=== PATIENT | female | born 1950 | race African-American/Black ===

== ENCOUNTER 2017-04-12 00:24 | Inpatient (IN) | payer MEDICARE, MEDICAID ==
[~2017-04-12] VITALS: Ht 172.7 cm; Wt 83.7 kg
[2017-04-12] VITALS (9 sets, daily range): BP systolic 116–159; BP diastolic 41–88
[~2017-04-12 00:24] MED LIST: ACYC800T5 PO; ALBU2.5V13; ALBU5SOL6; ALEN70TA3; AMLO10TA80; ATROV INH; BECL8.7A5; COMBIV INH; ESTR0.9T2; FURO-151 PO; GABA-290 PO; GABA-580; GEMF600T3; HYDR-3927; INSLAN; LORA-671; METH40TA; METO-385; MOME13HF; MONT10TA21 PO; OMAL150V; P50 PO; PANT40VI6 PO; POTA8TAB4; SUCR1TAB30 PO; TC1C15; TIOT18CA3; [UNRECOGNIZED DRUG - CODE]; [UNRECOGNIZED DRUG - CODE]; [UNRECOGNIZED DRUG - OTHER]; [UNRECOGNIZED DRUG - OTHER] PO
[2017-04-12] MEDS ORDERED: IPRATROPIUM BROMIDE (0.02%) 0.5MG/2.5ML NEB HHN STA (01:39)
[2017-04-12] MEDS ORDERED: ALBUTEROL (0.083%) 2.5MG/3ML NEB HHN STA (01:39)
[2017-04-12] MEDS ORDERED: MAGNESIUM 2 G PREMIX 50 ML IV ONE (01:45)
[2017-04-12 02:01] LABS: HEMATOCRIT. 37.8 % (36.0-48.0); HEMOGLOBIN. 12.3 g/dL (12.0-16.0); MEAN CORPUSCULAR HEMOGLOBIN 30.2 pg (28.0-32.0); MEAN CORPUSCULAR VOLUME 92.6 fL (81.0-99.0); MEAN PLATELET VOLUME 8.3 fl (7.4-10.4); PLATELET 381 x1000/uL (130-400); RED BLOOD CELL COUNT 4.08 mill/uL (4.2-5.4); RED CELL DISTRIBUTION WIDTH 15.3 % (11.6-14.6)
[2017-04-12 02:16] LABS: CHLORIDE 93 mEq/L (98-107); TROPONIN I 0.34 ng/mL (0.00-0.04)
[2017-04-12 04:35] LABS: PLATELET ESTIMATE NORMAL
[2017-04-12] MEDS ORDERED: INSULIN REGULAR (HUMULIN R) 300UNITS/3ML SUBCUT ONE (05:00)
[2017-04-12] MEDS ORDERED: DEXTROSE 50% WATER 50ML SYRINGE IV PRN (08:00)
[2017-04-12] MEDS ORDERED: HYDROCODONE/ACETAMINOPHEN 5/325MG TABLET PO PRN (08:00)
[2017-04-12] MEDS: BLOOD SUGAR DIAGNOSTIC STRIP TEST SCH ×4 (08:10→21:00)
[2017-04-12] MEDS ORDERED: INSULIN LISPRO 100 UNITS/ML SUBCUT SCH (08:30)
[2017-04-12] MEDS: INSULIN LISPRO 100 UNITS/ML SUBCUT SCH ×4 (08:45→22:13)
[2017-04-12] MEDS: NITROGLYCERIN 0.4MG TABLET SL SL PRN ×2 (08:46→23:50)
[2017-04-12] MEDS: INSULIN GLARGINE UD 100 UNITS/ML SYR SUBCUT SCH ×2 (10:29→22:00)
[2017-04-12] MEDS ORDERED: ONDANSETRON HCL 4MG/2ML VIAL IV PRN (11:45)
[2017-04-12] MEDS: IPRATROPIUM/ALBUTEROL 0.5-3(2.5)MG/3ML NEB INH PRN ×2 (12:18→17:25)
[2017-04-12] MEDS: BUDESONIDE 0.5MG/2ML NEB HHN SCH ×2 (12:19→20:02)
[2017-04-12] MEDS: ASPIRIN 81MG EC TABLET PO SCH (12:46)
[2017-04-12] MEDS: HYDROCODONE/ACETAMINOPHEN 5/325MG TABLET PO PRN ×2 (12:47→21:52)
[2017-04-12] MEDS: DILTIAZEM HCL 60MG TABLET PO SCH ×2 (14:49→21:50)
[2017-04-12 15:35] LABS: CREATINE KINASE MB FRACTION 9.6 ng/mL (0.5-3.6); TROPONIN I 0.37 ng/mL (0.00-0.04)
[2017-04-12 17:19] LABS: *AMPHETAMINES SCREEN URINE NEGATIVE (NEGATIVE); *BARBITURATES SCREEN URINE NEGATIVE (NEGATIVE); *BENZODIAZEPINES SCREEN URINE PRESUMTIVE POSITIVE (NEGATIVE); *COCAINE SCREEN URINE NEGATIVE (NEGATIVE); CANNABINOID URINE SCREEN NEGATIVE (NEGATIVE); METHADONE URINE SCREEN NEGATIVE (NEGATIVE); OPIATES URINE SCREEN PRESUMTIVE POSITIVE (NEGATIVE); PHENCYCLIDINE URINE SCREEN NEGATIVE (NEGATIVE)
[2017-04-12] MEDS: METHYLPREDNISOLONE SOD SUCC 40 MG/ML VIAL IV SCH (18:53)
[2017-04-12] MEDS: IPRATROPIUM/ALBUTEROL 0.5-3(2.5)MG/3ML NEB HHN SCH (20:02)
[2017-04-12] MEDS ORDERED: [UNRECOGNIZED DRUG - OTHER] INH SCH (20:30)
[2017-04-12] MEDS ORDERED: ALBUTEROL SULFATE INH SCH (20:30)
[2017-04-12] MEDS ORDERED: TIZANIDINE HCL 4MG TABLET PO PRN (20:30)
[2017-04-12] MEDS ORDERED: HYDROXYZINE 25MG TABLET PO PRN (20:30)
[2017-04-12] MEDS ORDERED: IPRATROPIUM INH SCH (20:30)
[2017-04-12] MEDS ORDERED: IPRATROPIUM BROMIDE 17 MCG INH SCH (20:30)
[2017-04-12] MEDS ORDERED: MECLIZINE 25MG TABLET PO PRN (20:30)
[2017-04-12] MEDS ORDERED: MEDICATION NOT ON FORMULARY EA (Gabapentin 600 MG) PO SCH (20:30)
[2017-04-12] MEDS ORDERED: PREGABALIN 75MG CAPSULE PO SCH (21:00)
[2017-04-12] MEDS ORDERED: OMEP40CA34 PO (21:03)
[2017-04-12] MEDS ORDERED: ESTR0.9T2 PO (21:03)
[2017-04-12] MEDS ORDERED: HYDR-2412 PO (21:03)
[2017-04-12] MEDS ORDERED: LOSA50TA20 PO (21:03)
[2017-04-12] MEDS ORDERED: TIZA4TAB4 PO (21:03)
[2017-04-12] MEDS ORDERED: PREG75CA PO (21:03)
[2017-04-12] MEDS ORDERED: MECL-109 PO (21:03)
[2017-04-12] MEDS ORDERED: METH-375 PO (21:03)
[2017-04-12] MEDS ORDERED: SITA100T11 PO (21:03)
[2017-04-12] MEDS ORDERED: ASPI-1159 PO (21:03)
[2017-04-12] MEDS ORDERED: GEMF600T3 PO (21:03)
[2017-04-12] MEDS ORDERED: OXYC-523 PO (21:08)
[2017-04-12] MEDS: CLONIDINE 0.1MG TABLET PO SCH (21:52)
[2017-04-12] MEDS: METHOCARBAMOL 750MG TABLET PO SCH (23:17)
[2017-04-12] MEDS: OXYCODONE HCL/ACETAMINOPHEN 5/325MG TABLET PO PRN (23:40)
[2017-04-13] VITALS (10 sets, daily range): BP systolic 114–175; BP diastolic 71–110
[2017-04-13 00:04] LABS: CREATINE KINASE MB FRACTION 7.3 ng/mL (0.5-3.6)
[2017-04-13 00:09] LABS: TROPONIN I 0.43 ng/mL (0.00-0.04)
[2017-04-13] MEDS: IPRATROPIUM/ALBUTEROL 0.5-3(2.5)MG/3ML NEB HHN SCH ×6 (00:18→20:05)
[2017-04-13] MEDS: MAGNESIUM/ALUMINUM HYDROXIDE/SIMETHICONE 30ML UDC PO PRN ×2 (00:23→06:54)
[2017-04-13] MEDS: ZOLPIDEM TARTRATE 5MG TABLET PO PRN ×2 (00:23→22:52)
[2017-04-13] MEDS: ACETAMINOPHEN 325MG TABLET PO PRN (00:31)
[2017-04-13] MEDS ORDERED: ALBU18HF2 IH (00:50)
[2017-04-13] MEDS ORDERED: ACLI400A2 IH (00:50)
[2017-04-13] MEDS ORDERED: BUDE6HFA INH (00:50)
[2017-04-13] MEDS: METHYLPREDNISOLONE SOD SUCC 40 MG/ML VIAL IV SCH ×4 (03:00→18:19)
[2017-04-13] MEDS: DILTIAZEM HCL 60MG TABLET PO SCH ×5 (03:00→20:55)
[2017-04-13] MEDS: METHOCARBAMOL 750MG TABLET PO SCH ×6 (03:30→20:56)
[2017-04-13] MEDS: INSULIN GLARGINE UD 100 UNITS/ML SYR SUBCUT SCH ×3 (06:18→22:52)
[2017-04-13] MEDS: GEMFIBROZIL 600MG TABLET PO SCH ×2 (06:54→16:39)
[2017-04-13] MEDS: OMEPRAZOLE 20MG CAPSULE EXTENDED RELEASE PO SCH (06:54)
[2017-04-13 06:56] LABS: HEMATOCRIT. 35.5 % (36.0-48.0); HEMOGLOBIN. 11.8 g/dL (12.0-16.0); MEAN CORPUSCULAR HEMOGLOBIN 30.6 pg (28.0-32.0); MEAN CORPUSCULAR VOLUME 92.4 fL (81.0-99.0); MEAN PLATELET VOLUME 8.6 fl (7.4-10.4); PLATELET 348 x1000/uL (130-400); RED BLOOD CELL COUNT 3.84 mill/uL (4.2-5.4); RED CELL DISTRIBUTION WIDTH 15.1 % (11.6-14.6)
[2017-04-13 07:33] LABS: TROPONIN I 0.35 ng/mL (0.00-0.04)
[2017-04-13] MEDS: BLOOD SUGAR DIAGNOSTIC STRIP TEST SCH ×4 (07:58→21:16)
[2017-04-13] MEDS: SUCRALFATE 1G TABLET PO SCH ×3 (07:59→20:54)
[2017-04-13] MEDS: INSULIN LISPRO 100 UNITS/ML SUBCUT SCH ×4 (08:25→21:16)
[2017-04-13] MEDS: FUROSEMIDE 40MG TABLET PO SCH (08:45)
[2017-04-13] MEDS: LOSARTAN POTASSIUM 50 MG TABLET PO SCH (08:45)
[2017-04-13] MEDS: FOLIC ACID/VITAMIN B COMP W-C TABLET PO SCH (08:46)
[2017-04-13] MEDS: LINAGLIPTIN 5MG TABLET PO SCH (08:46)
[2017-04-13] MEDS: ASPIRIN 81MG EC TABLET PO SCH (08:46)
[2017-04-13] MEDS: CLONIDINE 0.1MG TABLET PO SCH ×2 (08:47→20:56)
[2017-04-13] MEDS ORDERED: ACYCLOVIR 400 MG PO SCH (09:00)
[2017-04-13] MEDS ORDERED: PREDNISONE 10 MG PO SCH (09:00)
[2017-04-13] MEDS ORDERED: GABAPENTIN 300MG CAPSULE PO SCH (09:00)
[2017-04-13] MEDS ORDERED: ACYCLOVIR 400 MG TABLET PO SCH (09:00)
[2017-04-13] MEDS ORDERED: ESTROGENS CONJUGATED PO SCH (09:00)
[2017-04-13] MEDS ORDERED: ASPIRIN 81MG EC TABLET PO SCH (09:00)
[2017-04-13] MEDS ORDERED: MEDICATION NOT ON FORMULARY EA (Sitagliptin Phosphate (Januvia) 1 TAB) PO SCH (09:00)
[2017-04-13] MEDS ORDERED: ROFLUMILAST PO SCH (09:00)
[2017-04-13] MEDS ORDERED: MEDICATION NOT ON FORMULARY EA (Omeprazole 1 CAP) PO SCH (09:00)
[2017-04-13] MEDS: BUDESONIDE 0.5MG/2ML NEB HHN SCH ×2 (09:32→20:10)
[2017-04-13] MEDS: NITROGLYCERIN 0.4MG TABLET SL SL PRN ×2 (09:57→10:05)
[2017-04-13] MEDS ORDERED: LACTULOSE 20G/30ML UDC PO NR (11:15)
[2017-04-13] MEDS: NITROGLYCERIN OINT 1GM/INCH UDPKT TD SCH ×2 (11:57→17:01)
[2017-04-13] MEDS: DOCUSATE SODIUM 250MG CAPSULE PO SCH ×2 (11:58→16:51)
[2017-04-13] MEDS: CLONIDINE 0.1MG TABLET PO PRN (12:33)
[2017-04-13] MEDS: LEVOFLOXACIN 250MG PREMIX 50 ML IV SCH (12:34)
[2017-04-13 20:50] LABS: PLATELET ESTIMATE NORMAL
[2017-04-13] MEDS: PREGABALIN 50 MG CAPSULE PO SCH (20:55)
[2017-04-13] MEDS: GUAIFENESIN 600MG ER TABLET PO SCH (20:55)
[2017-04-13] MEDS: MONTELUKAST SODIUM 10MG TABLET PO SCH (20:56)
[2017-04-13] MEDS: OXYCODONE HCL/ACETAMINOPHEN 5/325MG TABLET PO PRN (21:14)
[2017-04-14] VITALS (11 sets, daily range): BP systolic 117–172; BP diastolic 53–113
[2017-04-14] MEDS: NITROGLYCERIN OINT 1GM/INCH UDPKT TD SCH ×4 (00:15→20:19)
[2017-04-14] MEDS: METHOCARBAMOL 750MG TABLET PO SCH ×6 (00:18→20:14)
[2017-04-14] MEDS: IPRATROPIUM/ALBUTEROL 0.5-3(2.5)MG/3ML NEB HHN SCH ×6 (00:52→21:20)
[2017-04-14] MEDS: DILTIAZEM HCL 60MG TABLET PO SCH ×4 (01:02→15:35)
[2017-04-14] MEDS: METHYLPREDNISOLONE SOD SUCC 40 MG/ML VIAL IV SCH ×3 (03:04→18:04)
[2017-04-14 06:06] LABS: BASOPHILS % 0.1 % (0.0-2.0); HEMATOCRIT. 31.9 % (36.0-48.0); HEMOGLOBIN. 10.3 g/dL (12.0-16.0); MEAN CORPUSCULAR HEMOGLOBIN 29.5 pg (28.0-32.0); MEAN CORPUSCULAR VOLUME 91.2 fL (81.0-99.0); MEAN PLATELET VOLUME 8.6 fl (7.4-10.4); NEUTROPHILS % 83.9 % (40.0-76.0); PLATELET 360 x1000/uL (130-400)
[2017-04-14] MEDS ORDERED: LIDOCAINE HCL 1% 20ML VIAL (Pyxis) INJ INFIL ONE (06:30)
[2017-04-14] MEDS: SUCRALFATE 1G TABLET PO SCH ×3 (07:44→22:04)
[2017-04-14] MEDS: GEMFIBROZIL 600MG TABLET PO SCH ×2 (07:44→17:04)
[2017-04-14] MEDS: BLOOD SUGAR DIAGNOSTIC STRIP TEST SCH ×4 (07:44→21:00)
[2017-04-14] MEDS: OMEPRAZOLE 20MG CAPSULE EXTENDED RELEASE PO SCH (07:44)
[2017-04-14] MEDS: INSULIN LISPRO 100 UNITS/ML SUBCUT SCH ×4 (07:54→21:00)
[2017-04-14] MEDS: BUDESONIDE 0.5MG/2ML NEB HHN SCH (08:15)
[2017-04-14] MEDS ORDERED: SENNOSIDES/DOCUSATE SOD 8.6/50MG TABLET PO PRN (09:30)
[2017-04-14] MEDS: DOCUSATE SODIUM 250MG CAPSULE PO SCH ×2 (09:45→17:05)
[2017-04-14] MEDS: LINAGLIPTIN 5MG TABLET PO SCH (09:46)
[2017-04-14] MEDS: LOSARTAN POTASSIUM 50 MG TABLET PO SCH (09:46)
[2017-04-14] MEDS: FOLIC ACID/VITAMIN B COMP W-C TABLET PO SCH (09:46)
[2017-04-14] MEDS: ASPIRIN 81MG EC TABLET PO SCH (09:46)
[2017-04-14] MEDS: FUROSEMIDE 40MG TABLET PO SCH (09:46)
[2017-04-14] MEDS: GUAIFENESIN 600MG ER TABLET PO SCH ×2 (09:47→22:06)
[2017-04-14] MEDS: CLONIDINE 0.1MG TABLET PO SCH ×2 (09:47→21:00)
[2017-04-14] MEDS: INSULIN GLARGINE UD 100 UNITS/ML SYR SUBCUT SCH ×2 (09:48→22:30)
[2017-04-14] MEDS ORDERED: NITROGLYCERIN OINT 1GM/INCH UDPKT TD SCH (14:00)
[2017-04-14] MEDS: MONTELUKAST SODIUM 10MG TABLET PO SCH (20:14)
[2017-04-14] MEDS ORDERED: LACTULOSE 20G/30ML UDC PO PRN (21:00)
[2017-04-14] MEDS ORDERED: EPOETIN ALFA 4000UNITS/ML VIAL SUBCUT SCH (21:00)
[2017-04-14] MEDS: PREGABALIN 50 MG CAPSULE PO SCH (22:05)
[2017-04-15] VITALS (7 sets, daily range): BP systolic 117–173; BP diastolic 54–96
[2017-04-15] MEDS: ZOLPIDEM TARTRATE 5MG TABLET PO PRN ×3 (01:03→23:54)
[2017-04-15] MEDS: IPRATROPIUM/ALBUTEROL 0.5-3(2.5)MG/3ML NEB HHN SCH ×6 (01:07→20:21)
[2017-04-15] MEDS: METHYLPREDNISOLONE SOD SUCC 40 MG/ML VIAL IV SCH ×3 (03:23→20:38)
[2017-04-15] MEDS: HYDROCODONE/ACETAMINOPHEN 5/325MG TABLET PO PRN (03:23)
[2017-04-15] MEDS: DILTIAZEM HCL 60MG TABLET PO SCH ×4 (03:24→20:38)
[2017-04-15] MEDS: METHOCARBAMOL 750MG TABLET PO SCH ×7 (04:00→23:51)
[2017-04-15] MEDS: NITROGLYCERIN OINT 1GM/INCH UDPKT TD SCH ×3 (04:00→20:37)
[2017-04-15] MEDS: BUDESONIDE 0.5MG/2ML NEB HHN SCH ×3 (05:11→20:21)
[2017-04-15] MEDS: GEMFIBROZIL 600MG TABLET PO SCH ×2 (06:48→17:31)
[2017-04-15] MEDS: OMEPRAZOLE 20MG CAPSULE EXTENDED RELEASE PO SCH (06:48)
[2017-04-15] MEDS: SUCRALFATE 1G TABLET PO SCH ×3 (06:49→20:38)
[2017-04-15] MEDS: CLONIDINE 0.1MG TABLET PO PRN (07:06)
[2017-04-15 07:23] LABS: BASOPHILS % 0.1 % (0.0-2.0); HEMATOCRIT. 32.6 % (36.0-48.0); HEMOGLOBIN. 10.7 g/dL (12.0-16.0); LYMPHOCYTES % 7.3 % (20.0-50.0); MEAN CORPUSCULAR HEMOGLOBIN 29.7 pg (28.0-32.0); MEAN CORPUSCULAR VOLUME 90.5 fL (81.0-99.0); MEAN PLATELET VOLUME 8.4 fl (7.4-10.4); MONOCYTES % 3.4 % (2.0-8.0); NEUTROPHILS % 89.2 % (40.0-76.0); PLATELET 384 x1000/uL (130-400); RED CELL DISTRIBUTION WIDTH 14.8 % (11.6-14.6)
[2017-04-15] MEDS: BLOOD SUGAR DIAGNOSTIC STRIP TEST SCH ×4 (08:06→20:39)
[2017-04-15] MEDS: DOCUSATE SODIUM 250MG CAPSULE PO SCH ×2 (08:48→16:59)
[2017-04-15] MEDS: FUROSEMIDE 40MG TABLET PO SCH (08:48)
[2017-04-15] MEDS: LOSARTAN POTASSIUM 50 MG TABLET PO SCH (08:48)
[2017-04-15] MEDS: CLONIDINE 0.1MG TABLET PO SCH ×2 (08:50→20:38)
[2017-04-15] MEDS: LINAGLIPTIN 5MG TABLET PO SCH (08:50)
[2017-04-15] MEDS: DOCUSATE SODIUM 100MG CAPSULE PO PRN (08:50)
[2017-04-15] MEDS: FOLIC ACID/VITAMIN B COMP W-C TABLET PO SCH (08:52)
[2017-04-15] MEDS: GUAIFENESIN 600MG ER TABLET PO SCH ×2 (08:52→20:38)
[2017-04-15] MEDS: ASPIRIN 81MG EC TABLET PO SCH (08:52)
[2017-04-15] MEDS: INSULIN LISPRO 100 UNITS/ML SUBCUT SCH ×4 (08:55→21:17)
[2017-04-15] MEDS: INSULIN GLARGINE UD 100 UNITS/ML SYR SUBCUT SCH ×2 (11:23→21:18)
[2017-04-15] MEDS ORDERED: SODIUM POLYSTYRENE SULFONATE 15 G/60 ML BOT PO NR (12:30)
[2017-04-15] MEDS ORDERED: LANTUSUD SUBCUT (12:38)
[2017-04-15] MEDS ORDERED: ASPI-1158 PO (12:38)
[2017-04-15] MEDS ORDERED: LINA5TAB PO (12:38)
[2017-04-15] MEDS ORDERED: DILT240C91 PO (12:38)
[2017-04-15] MEDS ORDERED: P20 PO (12:38)
[2017-04-15] MEDS ORDERED: SODIUM POLYSTYRENE SULFONATE 15 G/60 ML BOT PO ONE (13:00)
[2017-04-15] MEDS: ISOSORB DINIT/HYDRALAZINE HCL 20/37.5MG TABLET PO SCH ×2 (14:00→22:11)
[2017-04-15] MEDS: LEVOFLOXACIN 250MG PREMIX 50 ML IV SCH (14:39)
[2017-04-15] MEDS: MONTELUKAST SODIUM 10MG TABLET PO SCH (20:36)
[2017-04-15] MEDS: PREGABALIN 50 MG CAPSULE PO SCH (20:38)
[2017-04-16] VITALS (9 sets, daily range): BP systolic 137–187; BP diastolic 59–167
[2017-04-16] MEDS: IPRATROPIUM/ALBUTEROL 0.5-3(2.5)MG/3ML NEB HHN SCH ×6 (00:44→23:58)
[2017-04-16] MEDS: METHOCARBAMOL 750MG TABLET PO SCH ×6 (03:46→23:01)
[2017-04-16] MEDS: DILTIAZEM HCL 60MG TABLET PO SCH ×4 (03:46→21:20)
[2017-04-16] MEDS: CLONIDINE 0.1MG TABLET PO PRN ×2 (03:46→22:52)
[2017-04-16] MEDS: NITROGLYCERIN OINT 1GM/INCH UDPKT TD SCH ×3 (03:46→21:20)
[2017-04-16] MEDS: ISOSORB DINIT/HYDRALAZINE HCL 20/37.5MG TABLET PO SCH ×3 (05:53→21:19)
[2017-04-16] MEDS: FUROSEMIDE 40MG TABLET PO SCH (06:11)
[2017-04-16 08:43] LABS: HEMATOCRIT. 32.7 % (36.0-48.0); HEMOGLOBIN. 10.5 g/dL (12.0-16.0); MEAN CORPUSCULAR HEMOGLOBIN 28.7 pg (28.0-32.0); MEAN CORPUSCULAR VOLUME 89.3 fL (81.0-99.0); MEAN PLATELET VOLUME 8.3 fl (7.4-10.4); PLATELET 405 x1000/uL (130-400); RED BLOOD CELL COUNT 3.66 mill/uL (4.2-5.4); RED CELL DISTRIBUTION WIDTH 14.9 % (11.6-14.6)
[2017-04-16] MEDS: CLONIDINE 0.1MG TABLET PO SCH ×2 (09:00→21:19)
[2017-04-16] MEDS: OMEPRAZOLE 20MG CAPSULE EXTENDED RELEASE PO SCH (10:15)
[2017-04-16] MEDS: GEMFIBROZIL 600MG TABLET PO SCH ×2 (10:15→18:39)
[2017-04-16] MEDS: METHYLPREDNISOLONE SOD SUCC 40 MG/ML VIAL IV SCH ×2 (10:16→21:20)
[2017-04-16] MEDS: DOCUSATE SODIUM 100MG CAPSULE PO PRN (10:16)
[2017-04-16] MEDS: ASPIRIN 81MG EC TABLET PO SCH (10:30)
[2017-04-16] MEDS: DOCUSATE SODIUM 250MG CAPSULE PO SCH ×2 (10:31→18:41)
[2017-04-16] MEDS: LINAGLIPTIN 5MG TABLET PO SCH (10:32)
[2017-04-16 10:45] LABS: PLATELET ESTIMATE SLIGHTLY INCREASED
[2017-04-16] MEDS: GUAIFENESIN 600MG ER TABLET PO SCH ×2 (10:45→21:13)
[2017-04-16] MEDS: SUCRALFATE 1G TABLET PO SCH ×3 (10:45→21:13)
[2017-04-16] MEDS: HYDROCODONE/ACETAMINOPHEN 5/325MG TABLET PO PRN ×2 (10:47→22:53)
[2017-04-16] MEDS: BUDESONIDE 0.5MG/2ML NEB HHN SCH ×2 (12:20→20:08)
[2017-04-16] MEDS: BLOOD SUGAR DIAGNOSTIC STRIP TEST SCH ×3 (12:30→21:20)
[2017-04-16] MEDS: INSULIN LISPRO 100 UNITS/ML SUBCUT SCH ×3 (13:13→21:34)
[2017-04-16] MEDS: INSULIN GLARGINE UD 100 UNITS/ML SYR SUBCUT SCH ×2 (13:16→21:34)
[2017-04-16] MEDS: FOLIC ACID/VITAMIN B COMP W-C TABLET PO SCH (14:16)
[2017-04-16] MEDS: MONTELUKAST SODIUM 10MG TABLET PO SCH (21:13)
[2017-04-16] MEDS: PREGABALIN 50 MG CAPSULE PO SCH (21:19)
[2017-04-16] MEDS: ACETAMINOPHEN 325MG TABLET PO PRN (22:52)
[2017-04-16] MEDS: ZOLPIDEM TARTRATE 5MG TABLET PO PRN (22:53)
[2017-04-17] VITALS (40 sets, daily range): BP systolic 98–182; BP diastolic 49–98
[2017-04-17] MEDS: DILTIAZEM HCL 60MG TABLET PO SCH ×4 (03:00→21:30)
[2017-04-17] MEDS: NITROGLYCERIN OINT 1GM/INCH UDPKT TD SCH ×3 (03:50→21:31)
[2017-04-17] MEDS: METHOCARBAMOL 750MG TABLET PO SCH ×3 (03:53→12:00)
[2017-04-17] MEDS: IPRATROPIUM/ALBUTEROL 0.5-3(2.5)MG/3ML NEB HHN SCH ×5 (04:05→19:53)
[2017-04-17] MEDS: ISOSORB DINIT/HYDRALAZINE HCL 20/37.5MG TABLET PO SCH ×3 (05:54→21:28)
[2017-04-17] MEDS: SUCRALFATE 1G TABLET PO SCH ×3 (07:30→21:28)
[2017-04-17] MEDS: BLOOD SUGAR DIAGNOSTIC STRIP TEST SCH ×4 (07:30→21:31)
[2017-04-17] MEDS: INSULIN LISPRO 100 UNITS/ML SUBCUT SCH ×4 (08:00→21:30)
[2017-04-17] MEDS: DOCUSATE SODIUM 100MG CAPSULE PO PRN (08:59)
[2017-04-17] MEDS: FUROSEMIDE 40MG TABLET PO SCH (08:59)
[2017-04-17] MEDS: ASPIRIN 81MG EC TABLET PO SCH (08:59)
[2017-04-17] MEDS: GUAIFENESIN 600MG ER TABLET PO SCH ×2 (08:59→21:28)
[2017-04-17] MEDS: GEMFIBROZIL 600MG TABLET PO SCH ×2 (08:59→17:42)
[2017-04-17] MEDS: LINAGLIPTIN 5MG TABLET PO SCH (08:59)
[2017-04-17] MEDS: OMEPRAZOLE 20MG CAPSULE EXTENDED RELEASE PO SCH (08:59)
[2017-04-17] MEDS: FOLIC ACID/VITAMIN B COMP W-C TABLET PO SCH (08:59)
[2017-04-17] MEDS: METHYLPREDNISOLONE SOD SUCC 40 MG/ML VIAL IV SCH ×2 (09:00→21:31)
[2017-04-17] MEDS: CLONIDINE 0.1MG TABLET PO SCH ×2 (09:00→21:28)
[2017-04-17] MEDS: DOCUSATE SODIUM 250MG CAPSULE PO SCH ×2 (09:00→17:42)
[2017-04-17] MEDS: BUDESONIDE 0.5MG/2ML NEB HHN SCH ×2 (09:20→19:53)
[2017-04-17] MEDS: INSULIN GLARGINE UD 100 UNITS/ML SYR SUBCUT SCH ×2 (09:26→21:29)
[2017-04-17 10:31] LABS: BG BASE EXCESS 1.5 mmol/L (-2.0-2.0); BG BILEVEL POS AIRWAY PRESSURE 15/5; BG DEOXYHEMOGLOBIN 1.6 % (0.0-5.0); BG FRACTION INSPIRED OXYGEN 50; BG HCO3 ACT 27.3 mmol/L (22.0-26.0); BG METHEMOGLOBIN 0.4 % (0.0-1.5); BG OXYGEN SATURATION 98.4 % (92.0-98.5); BG PCO2 48.2 mmHg (35.0-45.0); BG PH 7.371 (7.350-7.450); BG PO2 145.9 mmHg (75.0-100.0); BG SAMPLE SITE LEFT BRACHIAL; BG TOTAL HEMOGLOBIN 11.3 g/dL (12.0-18.0); BG VENT MODE MASK - BIPAP
[2017-04-17 10:46] LABS: PHOSPHORUS 3.9 mg/dL (2.5-4.9)
[2017-04-17 10:54] LABS: HEMATOCRIT. 32.3 % (36.0-48.0); HEMOGLOBIN. 10.7 g/dL (12.0-16.0); MEAN CORPUSCULAR HEMOGLOBIN 29.6 pg (28.0-32.0); MEAN CORPUSCULAR VOLUME 89.8 fL (81.0-99.0); MEAN PLATELET VOLUME 8.5 fl (7.4-10.4); PLATELET 352 x1000/uL (130-400); RED CELL DISTRIBUTION WIDTH 15.4 % (11.6-14.6)
[2017-04-17] MEDS ORDERED: PIPERACILLIN/TAZ 3.375G PREMIX 50 ML IV SCH (11:30)
[2017-04-17] MEDS: LEVOFLOXACIN 250MG PREMIX 50 ML IV SCH (12:47)
[2017-04-17] MEDS ORDERED: VANCOMYCIN 1500MG in DEXTROSE 5% WATER 250ML IV SCH (13:00)
[2017-04-17 13:20] LABS: PLATELET ESTIMATE NORMAL
[2017-04-17] MEDS: PIPERACILLIN/TAZ 2.25G PREMIX 50 ML IV SCH ×2 (14:00→21:31)
[2017-04-17] MEDS: NITROGLYCERIN 0.4MG TABLET SL SL PRN ×2 (16:45→17:49)
[2017-04-17] MEDS: PREGABALIN 50 MG CAPSULE PO SCH (21:27)
[2017-04-17] MEDS: MONTELUKAST SODIUM 10MG TABLET PO SCH (21:30)
[2017-04-17] MEDS: OXYCODONE HCL/ACETAMINOPHEN 5/325MG TABLET PO PRN (22:55)
[2017-04-18] VITALS (24 sets, daily range): BP systolic 103–161; BP diastolic 52–102
[2017-04-18] MEDS: IPRATROPIUM/ALBUTEROL 0.5-3(2.5)MG/3ML NEB HHN SCH ×6 (00:10→21:54)
[2017-04-18] MEDS: DILTIAZEM HCL 60MG TABLET PO SCH ×4 (03:57→21:29)
[2017-04-18] MEDS: NITROGLYCERIN OINT 1GM/INCH UDPKT TD SCH ×3 (03:58→22:04)
[2017-04-18 05:19] LABS: HEMATOCRIT. 30.2 % (36.0-48.0); HEMOGLOBIN. 9.7 g/dL (12.0-16.0); MEAN CORPUSCULAR HEMOGLOBIN 29.4 pg (28.0-32.0); MEAN CORPUSCULAR VOLUME 91.4 fL (81.0-99.0); MEAN PLATELET VOLUME 8.9 fl (7.4-10.4); PLATELET 347 x1000/uL (130-400); RED CELL DISTRIBUTION WIDTH 15.3 % (11.6-14.6)
[2017-04-18] MEDS: PIPERACILLIN/TAZ 2.25G PREMIX 50 ML IV SCH ×3 (05:40→21:51)
[2017-04-18] MEDS: OXYCODONE HCL/ACETAMINOPHEN 5/325MG TABLET PO PRN (05:40)
[2017-04-18] MEDS: ISOSORB DINIT/HYDRALAZINE HCL 20/37.5MG TABLET PO SCH ×3 (05:41→21:51)
[2017-04-18 05:43] LABS: TROPONIN I 0.03 ng/mL (0.00-0.04)
[2017-04-18 07:17] LABS: PLATELET ESTIMATE NORMAL
[2017-04-18] MEDS: BLOOD SUGAR DIAGNOSTIC STRIP TEST SCH ×4 (07:51→21:35)
[2017-04-18] MEDS: BUDESONIDE 0.5MG/2ML NEB HHN SCH (08:08)
[2017-04-18] MEDS: METHYLPREDNISOLONE SOD SUCC 40 MG/ML VIAL IV SCH ×2 (08:39→21:56)
[2017-04-18] MEDS: SUCRALFATE 1G TABLET PO SCH ×3 (08:39→21:53)
[2017-04-18] MEDS: LINAGLIPTIN 5MG TABLET PO SCH (08:39)
[2017-04-18] MEDS: CLONIDINE 0.1MG TABLET PO SCH ×2 (08:40→21:30)
[2017-04-18] MEDS: GEMFIBROZIL 600MG TABLET PO SCH ×2 (08:40→18:08)
[2017-04-18] MEDS: FOLIC ACID/VITAMIN B COMP W-C TABLET PO SCH (08:40)
[2017-04-18] MEDS: OMEPRAZOLE 20MG CAPSULE EXTENDED RELEASE PO SCH (08:40)
[2017-04-18] MEDS: ASPIRIN 81MG EC TABLET PO SCH (08:40)
[2017-04-18] MEDS: FUROSEMIDE 40MG TABLET PO SCH (08:41)
[2017-04-18] MEDS: DOCUSATE SODIUM 250MG CAPSULE PO SCH ×2 (08:41→18:08)
[2017-04-18] MEDS: GUAIFENESIN 600MG ER TABLET PO SCH ×2 (08:42→21:28)
[2017-04-18] MEDS: INSULIN LISPRO 100 UNITS/ML SUBCUT SCH ×5 (08:43→21:53)
[2017-04-18] MEDS ORDERED: INSULIN GLARGINE UD 100 UNITS/ML SYR SUBCUT SCH (10:00)
[2017-04-18] MEDS ORDERED: LORAZEPAM 2MG/ML CPJ IV PRN (10:30)
[2017-04-18 11:35] LABS: BG BASE EXCESS -1.1 mmol/L (-2.0-2.0); BG CARBOXYHEMOGLOBIN 0.3 % (0.5-1.5); BG DEOXYHEMOGLOBIN 4.9 % (0.0-5.0); BG HCO3 ACT 24.9 mmol/L (22.0-26.0); BG METHEMOGLOBIN 0.3 % (0.0-1.5); BG OXYGEN SATURATION 95.1 % (92.0-98.5); BG OXYHEMOGLOBIN 94.5 % (94.0-97.0); BG PCO2 47.4 mmHg (35.0-45.0); BG PH 7.338 (7.350-7.450); BG PO2 82.7 mmHg (75.0-100.0); BG SAMPLE SITE RIGHT RADIAL; BG TOTAL HEMOGLOBIN 10.7 g/dL (12.0-18.0); BG VENT MODE NASAL CANNULA
[2017-04-18] MEDS ORDERED: LORAZEPAM 2MG/ML CPJ IV NR (11:46)
[2017-04-18] MEDS ORDERED: INSULIN LISPRO 100 UNITS/ML SUBCUT SCH ×2 (12:45→12:50)
[2017-04-18] MEDS ORDERED: VANCOMYCIN 750 MG PREMIX 150 ML IV SCH (13:00)
[2017-04-18] MEDS ORDERED: LIDOCAINE HCL/PF 1% 2ML VIAL ONE (13:59)
[2017-04-18 16:21] LABS: BG BASE EXCESS -1.8 mmol/L (-2.0-2.0); BG CARBOXYHEMOGLOBIN 0.3 % (0.5-1.5); BG DEOXYHEMOGLOBIN 3.7 % (0.0-5.0); BG FRACTION INSPIRED OXYGEN 32; BG HCO3 ACT 24.6 mmol/L (22.0-26.0); BG METHEMOGLOBIN 0.3 % (0.0-1.5); BG OXYGEN SATURATION 96.3 % (92.0-98.5); BG OXYHEMOGLOBIN 95.7 % (94.0-97.0); BG PCO2 49.6 mmHg (35.0-45.0); BG PH 7.314 (7.350-7.450); BG PO2 96.5 mmHg (75.0-100.0); BG SAMPLE SITE LEFT RADIAL; BG TOTAL HEMOGLOBIN 10.2 g/dL (12.0-18.0); BG VENT MODE NASAL CANNULA
[2017-04-18] MEDS: PREGABALIN 50 MG CAPSULE PO SCH (21:54)
[2017-04-18] MEDS: MONTELUKAST SODIUM 10MG TABLET PO SCH (21:54)
[2017-04-18] MEDS: INSULIN GLARGINE UD 100 UNITS/ML SYR SUBCUT SCH (21:56)
[2017-04-19] VITALS (26 sets, daily range): BP systolic 100–174; BP diastolic 56–91
[2017-04-19] MEDS: IPRATROPIUM/ALBUTEROL 0.5-3(2.5)MG/3ML NEB HHN SCH ×6 (01:03→20:44)
[2017-04-19] MEDS: ISOSORB DINIT/HYDRALAZINE HCL 20/37.5MG TABLET PO SCH ×3 (05:43→21:06)
[2017-04-19] MEDS: DILTIAZEM HCL 60MG TABLET PO SCH ×4 (05:43→20:16)
[2017-04-19] MEDS: NITROGLYCERIN OINT 1GM/INCH UDPKT TD SCH ×3 (05:44→20:16)
[2017-04-19] MEDS: PIPERACILLIN/TAZ 2.25G PREMIX 50 ML IV SCH ×3 (05:44→21:06)
[2017-04-19] MEDS: BLOOD SUGAR DIAGNOSTIC STRIP TEST SCH ×4 (05:59→20:56)
[2017-04-19] MEDS: INSULIN LISPRO 100 UNITS/ML SUBCUT SCH ×7 (06:18→21:04)
[2017-04-19] MEDS: SUCRALFATE 1G TABLET PO SCH ×3 (07:30→20:18)
[2017-04-19 09:41] LABS: HEMATOCRIT. 32.2 % (36.0-48.0); HEMOGLOBIN. 10.4 g/dL (12.0-16.0); MEAN CORPUSCULAR HEMOGLOBIN 29.1 pg (28.0-32.0); MEAN CORPUSCULAR VOLUME 90.4 fL (81.0-99.0); PLATELET 410 x1000/uL (130-400); RED BLOOD CELL COUNT 3.56 mill/uL (4.2-5.4); RED CELL DISTRIBUTION WIDTH 15.3 % (11.6-14.6)
[2017-04-19] MEDS: METHYLPREDNISOLONE SOD SUCC 40 MG/ML VIAL IV SCH (09:53)
[2017-04-19] MEDS: OMEPRAZOLE 20MG CAPSULE EXTENDED RELEASE PO SCH (09:53)
[2017-04-19] MEDS: GEMFIBROZIL 600MG TABLET PO SCH ×2 (09:53→17:52)
[2017-04-19 10:12] LABS: CHLORIDE 104 mEq/L (98-107); PHOSPHORUS 1.9 mg/dL (2.5-4.9)
[2017-04-19 10:14] LABS: TROPONIN I 0.03 ng/mL (0.00-0.04)
[2017-04-19] MEDS: LINAGLIPTIN 5MG TABLET PO SCH (10:39)
[2017-04-19] MEDS: CLONIDINE 0.1MG TABLET PO SCH ×2 (10:39→20:17)
[2017-04-19] MEDS: FOLIC ACID/VITAMIN B COMP W-C TABLET PO SCH (10:39)
[2017-04-19] MEDS: GUAIFENESIN 600MG ER TABLET PO SCH ×2 (10:39→20:17)
[2017-04-19] MEDS: FUROSEMIDE 40MG TABLET PO SCH (10:40)
[2017-04-19] MEDS: DOCUSATE SODIUM 250MG CAPSULE PO SCH ×2 (10:40→17:52)
[2017-04-19] MEDS: ASPIRIN 81MG EC TABLET PO SCH (10:40)
[2017-04-19] MEDS: INSULIN GLARGINE UD 100 UNITS/ML SYR SUBCUT SCH ×2 (10:41→21:05)
[2017-04-19 11:10] LABS: PLATELET ESTIMATE INCREASED
[2017-04-19] MEDS ORDERED: FLUTICASONE/VILANTEROL 200-25 BLST.W.DEV ORI SCH (12:00)
[2017-04-19] MEDS: LORAZEPAM 2MG/ML CPJ IV PRN (12:13)
[2017-04-19] MEDS ORDERED: METHYLPREDNISOLONE SOD SUCC 40 MG/ML VIAL IV NR (12:30)
[2017-04-19 12:55] LABS: BG BASE EXCESS -1.7 mmol/L (-2.0-2.0); BG BILEVEL POS AIRWAY PRESSURE ST=15/5; BG CARBOXYHEMOGLOBIN 0.3 % (0.5-1.5); BG FRACTION INSPIRED OXYGEN 30; BG HCO3 ACT 23.9 mmol/L (22.0-26.0); BG METHEMOGLOBIN 0.4 % (0.0-1.5); BG OXYHEMOGLOBIN 94.3 % (94.0-97.0); BG PCO2 43.9 mmHg (35.0-45.0); BG PH 7.353 (7.350-7.450); BG PO2 80.8 mmHg (75.0-100.0); BG PRESSURE SUPPORT 10; BG SAMPLE SITE RIGHT BRACHIAL; BG TOTAL HEMOGLOBIN 10.7 g/dL (12.0-18.0); BG VENT MODE MASK - BIPAP; BG VENT RATE 16 set
[2017-04-19] MEDS ORDERED: INSULIN LISPRO 100 UNITS/ML SUBCUT SCH (13:00)
[2017-04-19] MEDS: ACETYLCYSTEINE 100MG/ML 10% VIAL 4ML INH SCH (16:21)
[2017-04-19] MEDS: DOXYCYCLINE HYCLATE 100MG CAPSULE PO SCH (17:52)
[2017-04-19] MEDS: PREGABALIN 50 MG CAPSULE PO SCH (20:16)
[2017-04-19] MEDS: EPOETIN ALFA 4000UNITS/ML VIAL SUBCUT SCH (20:19)
[2017-04-19] MEDS ORDERED: EPOETIN ALFA 10000UNITS/ML VIAL SUBCUT SCH (21:00)
[2017-04-20] VITALS (19 sets, daily range): BP systolic 112–154; BP diastolic 54–90
[2017-04-20] MEDS: ACETYLCYSTEINE 100MG/ML 10% VIAL 4ML INH SCH ×5 (00:27→21:22)
[2017-04-20] MEDS: IPRATROPIUM/ALBUTEROL 0.5-3(2.5)MG/3ML NEB HHN SCH ×6 (00:52→20:56)
[2017-04-20] MEDS: DILTIAZEM HCL 60MG TABLET PO SCH ×4 (03:00→21:23)
[2017-04-20] MEDS: NITROGLYCERIN OINT 1GM/INCH UDPKT TD SCH ×3 (03:04→21:25)
[2017-04-20] MEDS: PIPERACILLIN/TAZ 2.25G PREMIX 50 ML IV SCH ×2 (05:34→13:29)
[2017-04-20] MEDS: ISOSORB DINIT/HYDRALAZINE HCL 20/37.5MG TABLET PO SCH ×3 (05:35→21:23)
[2017-04-20] MEDS: BLOOD SUGAR DIAGNOSTIC STRIP TEST SCH ×4 (07:50→21:00)
[2017-04-20] MEDS: OMEPRAZOLE 20MG CAPSULE EXTENDED RELEASE PO SCH (09:12)
[2017-04-20] MEDS: LINAGLIPTIN 5MG TABLET PO SCH (09:12)
[2017-04-20] MEDS: DOXYCYCLINE HYCLATE 100MG CAPSULE PO SCH ×2 (09:12→21:23)
[2017-04-20] MEDS: FOLIC ACID/VITAMIN B COMP W-C TABLET PO SCH (09:12)
[2017-04-20] MEDS: ASPIRIN 81MG EC TABLET PO SCH (09:13)
[2017-04-20] MEDS: CLONIDINE 0.1MG TABLET PO SCH ×2 (09:13→21:23)
[2017-04-20] MEDS: DOCUSATE SODIUM 250MG CAPSULE PO SCH ×2 (09:13→18:08)
[2017-04-20] MEDS: FUROSEMIDE 40MG TABLET PO SCH (09:13)
[2017-04-20] MEDS: PREDNISONE 20MG TABLET PO SCH (09:13)
[2017-04-20] MEDS: GUAIFENESIN 600MG ER TABLET PO SCH ×2 (09:14→21:22)
[2017-04-20] MEDS: GEMFIBROZIL 600MG TABLET PO SCH (09:14)
[2017-04-20] MEDS: INSULIN LISPRO 100 UNITS/ML SUBCUT SCH ×6 (09:15→22:42)
[2017-04-20 09:17] LABS: HEMATOCRIT. 30.2 % (36.0-48.0); HEMOGLOBIN. 9.6 g/dL (12.0-16.0); MEAN CORPUSCULAR VOLUME 91.1 fL (81.0-99.0); MEAN PLATELET VOLUME 8.6 fl (7.4-10.4); PLATELET 388 x1000/uL (130-400); RED BLOOD CELL COUNT 3.31 mill/uL (4.2-5.4); RED CELL DISTRIBUTION WIDTH 15.2 % (11.6-14.6)
[2017-04-20] MEDS: SUCRALFATE 1G TABLET PO SCH ×3 (09:23→21:22)
[2017-04-20] MEDS: OXYCODONE HCL/ACETAMINOPHEN 5/325MG TABLET PO PRN ×2 (09:26→21:24)
[2017-04-20 09:32] LABS: BG BASE EXCESS -2.2 mmol/L (-2.0-2.0); BG CARBOXYHEMOGLOBIN 0.3 % (0.5-1.5); BG DEOXYHEMOGLOBIN 3.3 % (0.0-5.0); BG FRACTION INSPIRED OXYGEN 32; BG HCO3 ACT 23.8 mmol/L (22.0-26.0); BG METHEMOGLOBIN 0.3 % (0.0-1.5); BG OXYGEN SATURATION 96.7 % (92.0-98.5); BG OXYHEMOGLOBIN 96.1 % (94.0-97.0); BG PCO2 46.1 mmHg (35.0-45.0); BG PH 7.331 (7.350-7.450); BG PO2 99.2 mmHg (75.0-100.0); BG SAMPLE SITE LEFT RADIAL; BG TOTAL HEMOGLOBIN 10.2 g/dL (12.0-18.0); BG VENT MODE NASAL CANNULA
[2017-04-20] MEDS: INSULIN GLARGINE UD 100 UNITS/ML SYR SUBCUT SCH ×2 (09:52→23:39)
[2017-04-20 10:32] LABS: PLATELET ESTIMATE NORMAL
[2017-04-20] MEDS ORDERED: CEFEPIME 2,000 MG in DEXT 5% WATER 100 ML IV SCH (14:00)
[2017-04-20] MEDS ORDERED: VANCOMYCIN 750 MG PREMIX 150 ML IV NR (15:00)
[2017-04-20] MEDS: LORAZEPAM 2MG/ML CPJ IV PRN (18:58)
[2017-04-20] MEDS: CEFEPIME 1,000 MG in DEXTROSE 5% WATER 50 ML IV SCH (21:20)
[2017-04-20] MEDS: PREGABALIN 50 MG CAPSULE PO SCH (21:22)
[2017-04-20] MEDS ORDERED: PIPERACILLIN/TAZOBACTAM 2.25 G in SODIUM CHLORIDE 0.9% 50 ML IV SCH (22:00)
[2017-04-21] VITALS (13 sets, daily range): BP systolic 124–162; BP diastolic 66–113
[2017-04-21] MEDS: IPRATROPIUM/ALBUTEROL 0.5-3(2.5)MG/3ML NEB HHN SCH ×6 (00:27→21:09)
[2017-04-21] MEDS: ACETYLCYSTEINE 100MG/ML 10% VIAL 4ML INH SCH ×2 (00:27→14:21)
[2017-04-21] MEDS: NITROGLYCERIN OINT 1GM/INCH UDPKT TD SCH ×3 (04:14→21:50)
[2017-04-21] MEDS: DILTIAZEM HCL 60MG TABLET PO SCH ×4 (04:14→21:52)
[2017-04-21] MEDS: ISOSORB DINIT/HYDRALAZINE HCL 20/37.5MG TABLET PO SCH ×3 (06:14→21:52)
[2017-04-21] MEDS: OMEPRAZOLE 20MG CAPSULE EXTENDED RELEASE PO SCH (06:14)
[2017-04-21] MEDS: GEMFIBROZIL 600MG TABLET PO SCH ×2 (06:14→17:01)
[2017-04-21] MEDS: OXYCODONE HCL/ACETAMINOPHEN 5/325MG TABLET PO PRN ×2 (06:15→17:28)
[2017-04-21] MEDS: BLOOD SUGAR DIAGNOSTIC STRIP TEST SCH ×4 (06:34→21:52)
[2017-04-21] MEDS: INSULIN LISPRO 100 UNITS/ML SUBCUT SCH ×7 (07:20→21:28)
[2017-04-21] MEDS: SUCRALFATE 1G TABLET PO SCH ×3 (07:30→21:52)
[2017-04-21 08:23] LABS: HEMATOCRIT. 30.5 % (36.0-48.0); HEMOGLOBIN. 9.8 g/dL (12.0-16.0); MEAN CORPUSCULAR HEMOGLOBIN 29.2 pg (28.0-32.0); MEAN CORPUSCULAR VOLUME 91.1 fL (81.0-99.0); MEAN PLATELET VOLUME 8.7 fl (7.4-10.4); PLATELET 368 x1000/uL (130-400); RED BLOOD CELL COUNT 3.34 mill/uL (4.2-5.4); RED CELL DISTRIBUTION WIDTH 15.4 % (11.6-14.6)
[2017-04-21 09:00] LABS: PHOSPHORUS 4.9 mg/dL (2.5-4.9)
[2017-04-21] MEDS: CLONIDINE 0.1MG TABLET PO SCH ×2 (09:00→21:52)
[2017-04-21] MEDS: DOCUSATE SODIUM 250MG CAPSULE PO SCH ×2 (09:00→17:01)
[2017-04-21] MEDS: DOXYCYCLINE HYCLATE 100MG CAPSULE PO SCH ×2 (09:00→17:01)
[2017-04-21] MEDS: LINAGLIPTIN 5MG TABLET PO SCH (09:11)
[2017-04-21] MEDS: FUROSEMIDE 40MG TABLET PO SCH (09:11)
[2017-04-21] MEDS: GUAIFENESIN 600MG ER TABLET PO SCH ×2 (09:11→21:52)
[2017-04-21 10:00] LABS: PLATELET ESTIMATE NORMAL
[2017-04-21] MEDS: INSULIN GLARGINE UD 100 UNITS/ML SYR SUBCUT SCH ×2 (12:54→21:28)
[2017-04-21] MEDS: FOLIC ACID/VITAMIN B COMP W-C TABLET PO SCH (14:13)
[2017-04-21] MEDS: PREDNISONE 20MG TABLET PO SCH (14:14)
[2017-04-21] MEDS: ASPIRIN 81MG EC TABLET PO SCH (14:14)
[2017-04-21] MEDS: CEFEPIME 1,000 MG in DEXTROSE 5% WATER 50 ML IV SCH (17:01)
[2017-04-21] MEDS: EPOETIN ALFA 4000UNITS/ML VIAL SUBCUT SCH (21:51)
[2017-04-21] MEDS: PREGABALIN 50 MG CAPSULE PO SCH (21:52)
[2017-04-22] VITALS (9 sets, daily range): BP systolic 128–157; BP diastolic 62–106
[2017-04-22] MEDS: ACETYLCYSTEINE 100MG/ML 10% VIAL 4ML INH SCH ×2 (00:46→09:09)
[2017-04-22] MEDS: IPRATROPIUM/ALBUTEROL 0.5-3(2.5)MG/3ML NEB HHN SCH ×4 (00:47→13:08)
[2017-04-22] MEDS: DILTIAZEM HCL 60MG TABLET PO SCH ×2 (03:31→09:36)
[2017-04-22] MEDS: OXYCODONE HCL/ACETAMINOPHEN 5/325MG TABLET PO PRN (04:22)
[2017-04-22] MEDS: SUCRALFATE 1G TABLET PO SCH ×2 (05:36→12:39)
[2017-04-22] MEDS: NITROGLYCERIN OINT 1GM/INCH UDPKT TD SCH ×2 (05:36→12:39)
[2017-04-22] MEDS: GEMFIBROZIL 600MG TABLET PO SCH (05:36)
[2017-04-22] MEDS: ISOSORB DINIT/HYDRALAZINE HCL 20/37.5MG TABLET PO SCH (05:37)
[2017-04-22] MEDS: OMEPRAZOLE 20MG CAPSULE EXTENDED RELEASE PO SCH (05:37)
[2017-04-22] MEDS: BLOOD SUGAR DIAGNOSTIC STRIP TEST SCH ×2 (05:37→11:40)
[2017-04-22] MEDS: INSULIN LISPRO 100 UNITS/ML SUBCUT SCH ×4 (07:47→13:20)
[2017-04-22] MEDS: FUROSEMIDE 40MG TABLET PO SCH (09:37)
[2017-04-22] MEDS: DOCUSATE SODIUM 250MG CAPSULE PO SCH (09:37)
[2017-04-22] MEDS: FOLIC ACID/VITAMIN B COMP W-C TABLET PO SCH (09:37)
[2017-04-22] MEDS: CLONIDINE 0.1MG TABLET PO SCH (09:37)
[2017-04-22] MEDS: GUAIFENESIN 600MG ER TABLET PO SCH (09:37)
[2017-04-22] MEDS: LINAGLIPTIN 5MG TABLET PO SCH (09:37)
[2017-04-22] MEDS: ASPIRIN 81MG EC TABLET PO SCH (09:37)
[2017-04-22] MEDS: PREDNISONE 20MG TABLET PO SCH (09:38)
[2017-04-22] MEDS: DOXYCYCLINE HYCLATE 100MG CAPSULE PO SCH (09:38)
[2017-04-22] MEDS: INSULIN GLARGINE UD 100 UNITS/ML SYR SUBCUT SCH (11:36)
[2017-04-22 12:30] LABS: HEMATOCRIT. 32.8 % (36.0-48.0); HEMOGLOBIN. 10.5 g/dL (12.0-16.0); MEAN CORPUSCULAR HEMOGLOBIN 29.4 pg (28.0-32.0); MEAN CORPUSCULAR VOLUME 92.1 fL (81.0-99.0); MEAN PLATELET VOLUME 9.6 fl (7.4-10.4); PLATELET 351 x1000/uL (130-400); RED BLOOD CELL COUNT 3.56 mill/uL (4.2-5.4); RED CELL DISTRIBUTION WIDTH 15.3 % (11.6-14.6)
[2017-04-22] MEDS ORDERED: ALBU05 NEB (13:04)
[2017-04-22] MEDS ORDERED: PULM50 NEB (13:04)
[2017-04-22] MEDS ORDERED: ISOS1TAB PO (13:04)
[2017-04-22] MEDS ORDERED: DILT240C91 PO (13:04)
[2017-04-22 13:47] LABS: PLATELET ESTIMATE NORMAL
== END 2017-04-22 15:00 | disposition home health service (06) | DRG 871 ==
LOC: ER 00:24 → 5EST 02:54 → EDBEDREQ 03:03 → EDBEDREQSVC 04:23 → ENRESERV 04:40 → 5EST 08:35 → CVICU 04-17 10:56 → 3WST 04-18 05:00 → CVICU 04-18 05:27 → 3WST 04-20 17:00
PROVIDERS: ADMIT Internal Medicine; ATTEND Internal Medicine
PROC: 5A09357 Assistance with Respiratory Ventilation, Less than 24 Consecutive Hours, Continuous Positive Airway Pressure (ICD-10-PCS; principal; 2017-04-12)
PROC: 5A1D70Z Performance of Urinary Filtration, Intermittent, Less than 6 Hours Per Day (ICD-10-PCS; 2017-04-12)
PROC: 5A1D70Z Performance of Urinary Filtration, Intermittent, Less than 6 Hours Per Day (ICD-10-PCS; 2017-04-14)
PROC: 5A09357 Assistance with Respiratory Ventilation, Less than 24 Consecutive Hours, Continuous Positive Airway Pressure (ICD-10-PCS; 2017-04-16)
PROC: 5A1D70Z Performance of Urinary Filtration, Intermittent, Less than 6 Hours Per Day (ICD-10-PCS; 2017-04-16)
PROC: 5A09357 Assistance with Respiratory Ventilation, Less than 24 Consecutive Hours, Continuous Positive Airway Pressure (ICD-10-PCS; 2017-04-17)
PROC: 5A1D70Z Performance of Urinary Filtration, Intermittent, Less than 6 Hours Per Day (ICD-10-PCS; 2017-04-17)
PROC: 5A09357 Assistance with Respiratory Ventilation, Less than 24 Consecutive Hours, Continuous Positive Airway Pressure (ICD-10-PCS; 2017-04-18)
PROC: 5A09357 Assistance with Respiratory Ventilation, Less than 24 Consecutive Hours, Continuous Positive Airway Pressure (ICD-10-PCS; 2017-04-19)
PROC: 5A1D70Z Performance of Urinary Filtration, Intermittent, Less than 6 Hours Per Day (ICD-10-PCS; 2017-04-19)
PROC: 5A09357 Assistance with Respiratory Ventilation, Less than 24 Consecutive Hours, Continuous Positive Airway Pressure (ICD-10-PCS; 2017-04-20)
PROC: 5A1D70Z Performance of Urinary Filtration, Intermittent, Less than 6 Hours Per Day (ICD-10-PCS; 2017-04-21)
DX: A41.9 Sepsis, unspecified organism (principal); J96.00 Acute respiratory failure, unspecified whether with hypoxia or hypercapnia; J15.1 Pneumonia due to Pseudomonas; I13.11 Hypertensive heart and chronic kidney disease without heart failure, with stage 5 chronic kidney disease, or end stage renal disease; E11.22 Type 2 diabetes mellitus with diabetic chronic kidney disease; E87.2 Acidosis; I48.0 Paroxysmal atrial fibrillation; E11.40 Type 2 diabetes mellitus with diabetic neuropathy, unspecified; N18.6 End stage renal disease; E87.1 Hypo-osmolality and hyponatremia; J44.0 Chronic obstructive pulmonary disease with (acute) lower respiratory infection; J44.1 Chronic obstructive pulmonary disease with (acute) exacerbation; E44.1 Mild protein-calorie malnutrition; E11.65 Type 2 diabetes mellitus with hyperglycemia; D64.9 Anemia, unspecified; E66.09 Other obesity due to excess calories; E78.5 Hyperlipidemia, unspecified; E87.5 Hyperkalemia; E87.6 Hypokalemia; Z96.649 Presence of unspecified artificial hip joint; F17.210 Nicotine dependence, cigarettes, uncomplicated; F41.9 Anxiety disorder, unspecified; I49.3 Ventricular premature depolarization; J20.9 Acute bronchitis, unspecified; K59.00 Constipation, unspecified; Z79.4 Long term (current) use of insulin; Z83.3 Family history of diabetes mellitus; Z87.01 Personal history of pneumonia (recurrent); Z90.710 Acquired absence of both cervix and uterus; Z99.2 Dependence on renal dialysis; Z68.33 Body mass index [BMI] 33.0-33.9, adult; Z88.8 Allergy status to other drugs, medicaments and biological substances; Z79.82 Long term (current) use of aspirin; Z79.899 Other long term (current) drug therapy; Z68.28 Body mass index [BMI] 28.0-28.9, adult
CPT/HCPCS: 36415; 36600; 71045; 71250; 78580; 80048; 80053; 80061; 80202; 80305; 82375; 82550; 82553; 82805; 82962; 83605; 83735; 84100; 84132; 84145; 84443; 84484; 85025; 87040; 87070; 87077; 87186; 93005; 93306; 93970; 94640; 94644; 94660; 94664; 96365; 96366; 96372; 97116; 97163; 97167; 97530; 99291; C1893; J0692; J0885; J1815; J1956; J2060; J2543; J2920; J3370; J3475; J3490; J7030; J7050; J7060; J7512; J7608; J7611; J7620; J7626; J8597; A4315

== ENCOUNTER 2018-02-14 09:07 | Inpatient (IN) | payer MEDICARE, MEDICAID ==
[~2018-02-14] VITALS: Ht 162.6 cm; Wt 79.8 kg
[~2018-02-14 09:07] MED LIST changes: -ACYC800T5 PO; -ALBU2.5V13; -ALBU5SOL6; -ALEN70TA3; +ASPI-1159 PO; -ATROV INH; -BECL8.7A5; +CARV12.545 PO; -COMBIV INH; -ESTR0.9T2; -GABA-290 PO; -GABA-580; -GEMF600T3; +GEMF600T4 PO; -HYDR-3927; +HYDR-459 PO; -INSLAN; -LORA-671; +LOSA1TAB34 PO; -METH40TA; -METO-385; -MOME13HF; -MONT10TA21 PO; -OMAL150V; +P20 PO; -P50 PO; -POTA8TAB4; +SEVE800T8 PO; -SUCR1TAB30 PO; -TC1C15; -TIOT18CA3; +TRAZ-212 PO; -[UNRECOGNIZED DRUG - CODE]; -[UNRECOGNIZED DRUG - CODE]; -[UNRECOGNIZED DRUG - OTHER]; -[UNRECOGNIZED DRUG - OTHER] PO
[2018-02-14] MEDS ORDERED: ALBUTEROL (0.083%) 2.5MG/3ML NEB HHN STA (09:29)
[2018-02-14] MEDS ORDERED: IPRATROPIUM BROMIDE (0.02%) 0.5MG/2.5ML NEB HHN STA (09:29)
[2018-02-14] MEDS ORDERED: METHYLPREDNISOLONE SOD SUCC 125 MG/2 ML VIAL IV STA (09:29)
[2018-02-14 09:48] LABS: BASOPHILS % 0.9 % (0.0-2.0); EOSINOPHILS % 1.9 % (0.0-5.0); HEMOGLOBIN. 13.3 g/dL (12.0-16.0); LYMPHOCYTES % 27.2 % (20.0-50.0); MEAN CORPUSCULAR HEMOGLOBIN 33.3 pg (28.0-32.0); MEAN PLATELET VOLUME 9.3 fl (7.4-10.4); MONOCYTES % 6.7 % (2.0-8.0); NEUTROPHILS % 63.3 % (40.0-76.0); PLATELET 375 x1000/uL (130-400); RED CELL DISTRIBUTION WIDTH 15.6 % (11.6-14.6)
[2018-02-14 09:53] LABS: CHLORIDE 97 mEq/L (98-107)
[2018-02-14 09:58] LABS: ETHANOL BLOOD < 10 mg/dL
[2018-02-14 10:00] LABS: BG BASE EXCESS 3.9 mmol/L (-2.0-2.0); BG BILEVEL POS AIRWAY PRESSURE 15/5; BG CARBOXYHEMOGLOBIN 1.6 % (0.5-1.5); BG DEOXYHEMOGLOBIN 0.6 % (0.0-5.0); BG HCO3 ACT 30.2 mmol/L (22.0-26.0); BG METHEMOGLOBIN 0.3 % (0.0-1.5); BG OXYGEN SATURATION 99.4 % (92.0-98.5); BG OXYHEMOGLOBIN 97.5 % (94.0-97.0); BG PCO2 52.8 mmHg (35.0-45.0); BG PH 7.375 (7.350-7.450); BG PO2 374.4 mmHg (75.0-100.0); BG SAMPLE SITE LEFT RADIAL; BG TOTAL HEMOGLOBIN 12.5 g/dL (12.0-18.0); BG VENT MODE MASK - BIPAP; BG VENT RATE 12 set
[2018-02-14 13:56] VITALS: BP 142/71
[2018-02-14 14:25] VITALS: BP 142/36
[2018-02-14 16:00] VITALS: BP 152/73
[2018-02-14] MEDS ORDERED: IPRATROPIUM/ALBUTEROL 0.5-3(2.5)MG/3ML NEB INH PRN (16:15)
[2018-02-14] MEDS ORDERED: CLONIDINE 0.1MG TABLET PO PRN (16:15)
[2018-02-14] MEDS ORDERED: DEXTROSE 50% WATER 50ML SYRINGE IV PRN (16:15)
[2018-02-14] MEDS ORDERED: DOCUSATE SODIUM 100MG CAPSULE PO PRN (16:15)
[2018-02-14] MEDS ORDERED: MAGNESIUM/ALUMINUM HYDROXIDE/SIMETHICONE 30ML UDC PO PRN (16:15)
[2018-02-14] MEDS: CARVEDILOL 12.5MG TABLET PO SCH (16:30)
[2018-02-14 16:44] LABS: BG BASE EXCESS 3.5 mmol/L (-2.0-2.0); BG CARBOXYHEMOGLOBIN 1.2 % (0.5-1.5); BG DEOXYHEMOGLOBIN 2.7 % (0.0-5.0); BG HCO3 ACT 29.9 mmol/L (22.0-26.0); BG OXYGEN SATURATION 97.3 % (92.0-98.5); BG OXYHEMOGLOBIN 96.1 % (94.0-97.0); BG PCO2 53.1 mmHg (35.0-45.0); BG PH 7.368 (7.350-7.450); BG PO2 98.9 mmHg (75.0-100.0); BG SAMPLE SITE LEFT RADIAL; BG TOTAL HEMOGLOBIN 12.9 g/dL (12.0-18.0); BG VENT MODE NASAL CANNULA
[2018-02-14] MEDS ORDERED: ALBUTEROL (0.083%) 2.5MG/3ML NEB HHN PRN (16:45)
[2018-02-14 16:58] LABS: T4 FREE 0.86 ng/dL (0.76-1.46)
[2018-02-14 18:00] VITALS: BP 145/71
[2018-02-14] MEDS: SEVELAMER CARBONATE 800 MG TABLET PO SCH (18:00)
[2018-02-14] MEDS: GEMFIBROZIL 600MG TABLET PO SCH (18:00)
[2018-02-14] MEDS: ENOXAPARIN 30MG/0.3ML SYR SUBCUT SCH (18:06)
[2018-02-14 20:00] VITALS: BP 145/60
[2018-02-14] MEDS: METHYLPREDNISOLONE SOD SUCC 40 MG/ML VIAL IV SCH (20:00)
[2018-02-14] MEDS: IPRATROPIUM/ALBUTEROL 0.5-3(2.5)MG/3ML NEB INH SCH ×2 (20:00→23:53)
[2018-02-14] MEDS: INSULIN LISPRO 100 UNITS/ML SUBCUT SCH (21:00)
[2018-02-14] MEDS: BLOOD SUGAR DIAGNOSTIC STRIP TEST SCH (21:00)
[2018-02-14 22:00] VITALS: BP 158/58
[2018-02-14 22:30] LABS: FOLIC ACID (FOLATE) SERUM >20 ng/mL ng/mL (>5.38)
[2018-02-14 22:42] LABS: VITAMIN B12 SERUM 698 pg/mL (211-911)
[2018-02-15] VITALS (12 sets, daily range): BP systolic 126–168; BP diastolic 49–114
[2018-02-15] MEDS: ACETAMINOPHEN 325MG TABLET PO PRN ×2 (00:40→13:08)
[2018-02-15] MEDS: GUAIFENESIN 600MG ER TABLET PO SCH ×3 (00:41→21:24)
[2018-02-15] MEDS: CEFTRIAXONE 1 G PREMIX 50 ML IV SCH ×2 (00:41→23:49)
[2018-02-15 03:41] LABS: *AMPHETAMINES SCREEN URINE NEGATIVE (NEGATIVE)
[2018-02-15 03:42] LABS: *BARBITURATES SCREEN URINE NEGATIVE (NEGATIVE); *BENZODIAZEPINES SCREEN URINE NEGATIVE (NEGATIVE); *COCAINE SCREEN URINE NEGATIVE (NEGATIVE); METHADONE URINE SCREEN NEGATIVE (NEGATIVE); OPIATES URINE SCREEN PRESUMTIVE POSITIVE (NEGATIVE)
[2018-02-15 03:43] LABS: CANNABINOID URINE SCREEN NEGATIVE (NEGATIVE); PHENCYCLIDINE URINE SCREEN NEGATIVE (NEGATIVE)
[2018-02-15] MEDS: IPRATROPIUM/ALBUTEROL 0.5-3(2.5)MG/3ML NEB INH SCH ×5 (04:09→20:03)
[2018-02-15 04:12] LABS: CLARITY URINE CLEAR (CLEAR); COLOR URINE YELLOW (YELLOW); KETONES URINE TRACE (NEGATIVE); LEUKOCYTE ESTERASE URINE NEGATIVE (NEGATIVE); NITRITE URINE NEGATIVE (NEGATIVE); OCCULT BLOOD URINE 2+ (NEGATIVE); PROTEIN URINE 3+ (NEGATIVE); SPECIFIC GRAVITY URINE 1.019 (1.005-1.030); UROBILINOGEN URINE 0.2 E.U./dL (0.2-1.0)
[2018-02-15] MEDS: METHYLPREDNISOLONE SOD SUCC 40 MG/ML VIAL IV SCH ×2 (04:38→12:42)
[2018-02-15 07:00] LABS: HEMATOCRIT. 35.9 % (36.0-48.0); MEAN CORPUSCULAR HEMOGLOBIN 33.4 pg (28.0-32.0); MEAN CORPUSCULAR VOLUME 99.9 fL (81.0-99.0); MEAN PLATELET VOLUME 8.7 fl (7.4-10.4); PLATELET 368 x1000/uL (130-400); RED CELL DISTRIBUTION WIDTH 14.7 % (11.6-14.6)
[2018-02-15] MEDS: BLOOD SUGAR DIAGNOSTIC STRIP TEST SCH ×4 (07:30→21:25)
[2018-02-15] MEDS: INSULIN LISPRO 100 UNITS/ML SUBCUT SCH ×4 (08:57→21:36)
[2018-02-15] MEDS: SEVELAMER CARBONATE 800 MG TABLET PO SCH ×4 (08:58→17:56)
[2018-02-15] MEDS: FUROSEMIDE 40MG TABLET PO SCH (08:58)
[2018-02-15] MEDS: ASPIRIN 81MG TABLET PO SCH (08:58)
[2018-02-15] MEDS: GEMFIBROZIL 600MG TABLET PO SCH ×2 (08:58→17:56)
[2018-02-15] MEDS: AMLODIPINE 10MG TABLET PO SCH (09:00)
[2018-02-15] MEDS: CARVEDILOL 12.5MG TABLET PO SCH (09:01)
[2018-02-15 09:08] LABS: PHOSPHORUS 5.6 mg/dL (2.5-4.9)
[2018-02-15 10:28] LABS: BG BASE EXCESS 0.2 mmol/L (-2.0-2.0); BG CARBOXYHEMOGLOBIN 1.2 % (0.5-1.5); BG DEOXYHEMOGLOBIN 2.7 % (0.0-5.0); BG FRACTION INSPIRED OXYGEN 32; BG METHEMOGLOBIN 0.3 % (0.0-1.5); BG OXYGEN SATURATION 97.3 % (92.0-98.5); BG OXYHEMOGLOBIN 95.8 % (94.0-97.0); BG PCO2 46.6 mmHg (35.0-45.0); BG PH 7.365 (7.350-7.450); BG PO2 102.1 mmHg (75.0-100.0); BG SAMPLE SITE LEFT RADIAL; BG TOTAL HEMOGLOBIN 13.3 g/dL (12.0-18.0); BG VENT MODE NASAL CANNULA
[2018-02-15 11:53] LABS: PLATELET ESTIMATE NORMAL
[2018-02-15] MEDS: PREGABALIN 75MG CAPSULE PO SCH (13:07)
[2018-02-15] MEDS: FOLIC ACID/VITAMIN B COMP W-C TABLET PO SCH (13:07)
[2018-02-15] MEDS ORDERED: LIDOCAINE HCL/PF 1% 2ML VIAL ONE (15:28)
[2018-02-15] MEDS: ENOXAPARIN 30MG/0.3ML SYR SUBCUT SCH (17:59)
[2018-02-15] MEDS: PREDNISONE 20MG TABLET PO SCH (21:00)
[2018-02-16] VITALS (12 sets, daily range): BP systolic 134–156; BP diastolic 57–100
[2018-02-16] MEDS: IPRATROPIUM/ALBUTEROL 0.5-3(2.5)MG/3ML NEB INH SCH ×5 (01:08→16:00)
[2018-02-16 06:07] LABS: BASOPHILS % 0.2 % (0.0-2.0); EOSINOPHILS % 0.2 % (0.0-5.0); HEMOGLOBIN. 11.9 g/dL (12.0-16.0); LYMPHOCYTES % 25.1 % (20.0-50.0); MEAN CORPUSCULAR HEMOGLOBIN 33.7 pg (28.0-32.0); MEAN PLATELET VOLUME 8.9 fl (7.4-10.4); MONOCYTES % 8.7 % (2.0-8.0); NEUTROPHILS % 65.8 % (40.0-76.0); PLATELET 368 x1000/uL (130-400); RED BLOOD CELL COUNT 3.54 mill/uL (4.2-5.4); RED CELL DISTRIBUTION WIDTH 14.7 % (11.6-14.6)
[2018-02-16] MEDS: BLOOD SUGAR DIAGNOSTIC STRIP TEST SCH ×4 (07:42→21:34)
[2018-02-16] MEDS: INSULIN LISPRO 100 UNITS/ML SUBCUT SCH ×4 (07:43→21:00)
[2018-02-16] MEDS: GEMFIBROZIL 600MG TABLET PO SCH ×2 (08:58→19:10)
[2018-02-16] MEDS: ASPIRIN 81MG TABLET PO SCH ×2 (08:59→15:31)
[2018-02-16] MEDS: CARVEDILOL 12.5MG TABLET PO SCH ×2 (08:59→15:31)
[2018-02-16] MEDS: FOLIC ACID/VITAMIN B COMP W-C TABLET PO SCH ×2 (08:59→15:30)
[2018-02-16] MEDS: PREGABALIN 75MG CAPSULE PO SCH ×2 (08:59→15:30)
[2018-02-16] MEDS: GUAIFENESIN 600MG ER TABLET PO SCH ×2 (08:59→21:30)
[2018-02-16] MEDS: SEVELAMER CARBONATE 800 MG TABLET PO SCH ×3 (08:59→19:10)
[2018-02-16] MEDS: FUROSEMIDE 40MG TABLET PO SCH ×2 (08:59→15:30)
[2018-02-16] MEDS: AMLODIPINE 10MG TABLET PO SCH ×2 (09:00→15:30)
[2018-02-16] MEDS: ENOXAPARIN 30MG/0.3ML SYR SUBCUT SCH (16:38)
[2018-02-16 17:07] LABS: HEMATOCRIT 36.8 % (36.0-48.0); HEMOGLOBIN 12.3 g/dL (12.0-16.0); PLATELET 376 x1000/uL (130-400); RED BLOOD CELL COUNT 3.72 mill/uL (4.2-5.4); RED CELL DISTRIBUTION WIDTH 14.9 % (11.6-14.6)
[2018-02-16 17:19] LABS: CHLORIDE 97 mEq/L (98-107)
[2018-02-16] MEDS ORDERED: GUAIFENESIN 600MG ER TABLET PO SCH (21:00)
[2018-02-16] MEDS: ACETAMINOPHEN 325MG TABLET PO PRN (21:30)
[2018-02-16] MEDS: PREDNISONE 20MG TABLET PO SCH (21:30)
[2018-02-16] MEDS: CEFTRIAXONE 1 G PREMIX 50 ML IV SCH (23:52)
[2018-02-17] VITALS (9 sets, daily range): BP systolic 122–184; BP diastolic 63–100
[2018-02-17] MEDS: BLOOD SUGAR DIAGNOSTIC STRIP TEST SCH ×2 (07:30→12:46)
[2018-02-17] MEDS: PREGABALIN 75MG CAPSULE PO SCH (08:57)
[2018-02-17] MEDS: IPRATROPIUM/ALBUTEROL 0.5-3(2.5)MG/3ML NEB INH SCH (08:57)
[2018-02-17] MEDS: GUAIFENESIN 600MG ER TABLET PO SCH (08:57)
[2018-02-17] MEDS: FOLIC ACID/VITAMIN B COMP W-C TABLET PO SCH (08:57)
[2018-02-17] MEDS: ASPIRIN 81MG TABLET PO SCH (08:58)
[2018-02-17] MEDS: FUROSEMIDE 40MG TABLET PO SCH (08:58)
[2018-02-17] MEDS: AMLODIPINE 10MG TABLET PO SCH (08:59)
[2018-02-17] MEDS: CARVEDILOL 12.5MG TABLET PO SCH (08:59)
[2018-02-17] MEDS: GEMFIBROZIL 600MG TABLET PO SCH (08:59)
[2018-02-17] MEDS: SEVELAMER CARBONATE 800 MG TABLET PO SCH ×2 (09:00→13:32)
[2018-02-17] MEDS: INSULIN LISPRO 100 UNITS/ML SUBCUT SCH ×2 (09:17→12:46)
[2018-02-18 05:16] LABS: BARBITURATE SCREEN Negative ug/mL (Cutoff:0.1); BENZODIAZEPINE SCREEN Negative ng/mL (Cutoff:20); OPIATES SCREEN Negative ng/mL (Cutoff:5); PHENCYCLIDINE SCREEN Negative ng/mL (Cutoff:8)
== END 2018-02-17 15:25 | disposition home or self-care (01) | DRG 917 ==
LOC: ER 09:20 → ENRESERV 10:52 → 5EST 12:20 → EDBEDREQ 12:23 → EDBEDREQTM 12:24
PROVIDERS: ADMIT Family Medicine Adult Medicine; ATTEND Family Medicine Adult Medicine
PROC: 5A09357 Assistance with Respiratory Ventilation, Less than 24 Consecutive Hours, Continuous Positive Airway Pressure (ICD-10-PCS; 2018-02-14)
PROC: 4A00X4Z Measurement of Central Nervous Electrical Activity, External Approach (ICD-10-PCS; principal; 2018-02-16)
PROC: 5A1D70Z Performance of Urinary Filtration, Intermittent, Less than 6 Hours Per Day (ICD-10-PCS; 2018-02-16)
DX: T40.691A Poisoning by other narcotics, accidental (unintentional), initial encounter (principal); G92 Toxic encephalopathy; N18.6 End stage renal disease; E87.2 Acidosis; I13.11 Hypertensive heart and chronic kidney disease without heart failure, with stage 5 chronic kidney disease, or end stage renal disease; N25.81 Secondary hyperparathyroidism of renal origin; J44.1 Chronic obstructive pulmonary disease with (acute) exacerbation; D64.9 Anemia, unspecified; D72.829 Elevated white blood cell count, unspecified; E11.22 Type 2 diabetes mellitus with diabetic chronic kidney disease; E11.40 Type 2 diabetes mellitus with diabetic neuropathy, unspecified; E78.00 Pure hypercholesterolemia, unspecified; E78.5 Hyperlipidemia, unspecified; I48.91 Unspecified atrial fibrillation; J45.40 Moderate persistent asthma, uncomplicated; G47.10 Hypersomnia, unspecified; M19.90 Unspecified osteoarthritis, unspecified site; Z96.649 Presence of unspecified artificial hip joint; Z83.3 Family history of diabetes mellitus; Z87.01 Personal history of pneumonia (recurrent); Z87.891 Personal history of nicotine dependence; Z90.710 Acquired absence of both cervix and uterus; Z99.2 Dependence on renal dialysis; Y92.89 Other specified places as the place of occurrence of the external cause; Z79.82 Long term (current) use of aspirin; Z79.899 Other long term (current) drug therapy; Z88.8 Allergy status to other drugs, medicaments and biological substances
CPT/HCPCS: 36415; 36600; 70551; 71045; 80048; 80305; 80307; 80329; 82140; 82375; 82607; 82746; 82805; 82962; 83036; 83735; 84100; 84145; 84439; 84443; 84481; 85027; 87070; 93306; 94640; 94660; 96374; 97162; 97166; 99291; G0482; J0696; J1650; J1815; J2920; J2930; J3490; J7050; J7512; J7611; J7620

== ENCOUNTER 2018-03-22 09:17 | Inpatient (IN) | payer MEDICARE, MEDICAID ==
[~2018-03-22] VITALS: Ht 162.6 cm; Wt 82.6 kg
[~2018-03-22 09:17] MED LIST changes: -AMLO10TA80; +AMLO10TA80 PO
[2018-03-22] MEDS ORDERED: ALBUTEROL (0.083%) 2.5MG/3ML NEB HHN ONE (10:30)
[2018-03-22] MEDS ORDERED: IBUPROFEN 600MG TABLET PO ONE (11:30)
[2018-03-22] MEDS ORDERED: ACETAMINOPHEN WITH CODEINE 300/30MG TABLET PO ONE ×2 (13:00→15:30)
[2018-03-22 13:24] LABS: BASOPHILS % 0.4 % (0.0-2.0); EOSINOPHILS % 0.7 % (0.0-5.0); HEMATOCRIT. 34.7 % (36.0-48.0); HEMOGLOBIN. 11.3 g/dL (12.0-16.0); MEAN CORPUSCULAR HEMOGLOBIN 32.4 pg (28.0-32.0); MEAN CORPUSCULAR VOLUME 99.4 fL (81.0-99.0); MEAN PLATELET VOLUME 7.6 fl (7.4-10.4); MONOCYTES % 9.7 % (2.0-8.0); NEUTROPHILS % 67.2 % (40.0-76.0); PLATELET 399 x1000/uL (130-400); RED BLOOD CELL COUNT 3.49 mill/uL (4.2-5.4); RED CELL DISTRIBUTION WIDTH 14.9 % (11.6-14.6)
[2018-03-22 13:30] LABS: CHLORIDE 103 mEq/L (98-107)
[2018-03-22] MEDS ORDERED: METHYLPREDNISOLONE SOD SUCC 125 MG/2 ML VIAL IV ONE (15:00)
[2018-03-22] MEDS ORDERED: IPRATROPIUM/ALBUTEROL 0.5-3(2.5)MG/3ML NEB HHN PRN (15:30)
[2018-03-22] MEDS ORDERED: DEXTROSE 50% WATER 50ML SYRINGE IV PRN (15:30)
[2018-03-22] MEDS ORDERED: GUAIFENESIN-DM 200MG-20MG/10ML UDC PO PRN (15:30)
[2018-03-22] MEDS ORDERED: ONDANSETRON HCL 4MG/2ML INJ IV PRN (15:30)
[2018-03-22] MEDS ORDERED: ACETAMINOPHEN 325MG TABLET PO PRN (15:30)
[2018-03-22] MEDS ORDERED: INSULIN LISPRO 100 UNITS/ML SUBCUT NR (20:43)
[2018-03-22 22:10] VITALS: BP_SYST 172; BP_SYST 175; BP_DIAS 82; BP_DIAS 85
[2018-03-22] MEDS ORDERED: GABA-290 PO (23:14)
[2018-03-22] MEDS ORDERED: HYDROCODONE/ACETAMINOPHEN 5/325MG TABLET PO PRN (23:30)
[2018-03-22] MEDS: AZITHROMYCIN 500 MG TABLET PO SCH (23:37)
[2018-03-22] MEDS: AMLODIPINE 5MG TABLET PO SCH (23:38)
[2018-03-22] MEDS ORDERED: MEDICATION NOT ON FORMULARY EA (Gabapentin 600 MG) PO SCH (23:45)
[2018-03-23] MEDS: MORPHINE SULFATE 4 MG/ML CPJ (NOT FOR IM USE) IV PRN ×6 (00:23→21:50)
[2018-03-23] MEDS: HYDROXYZINE 25MG TABLET PO PRN ×2 (00:25→09:05)
[2018-03-23 00:30] VITALS: BP 99/54
[2018-03-23] MEDS ORDERED: MEDICATION NOT ON FORMULARY EA (Trazodone Hcl 50 MG) PO PRN (01:00)
[2018-03-23] MEDS ORDERED: MAGNESIUM/ALUMINUM HYDROXIDE/SIMETHICONE 30ML UDC PO PRN (01:15)
[2018-03-23] MEDS ORDERED: TRAZODONE HCL 50MG TABLET PO PRN (02:00)
[2018-03-23 04:00] VITALS: BP 158/81
[2018-03-23] MEDS: BLOOD SUGAR DIAGNOSTIC STRIP TEST SCH ×4 (06:58→20:57)
[2018-03-23 07:47] LABS: HEMATOCRIT. 35.9 % (36.0-48.0); HEMOGLOBIN. 11.4 g/dL (12.0-16.0); MEAN CORPUSCULAR HEMOGLOBIN 32.2 pg (28.0-32.0); MEAN CORPUSCULAR VOLUME 100.8 fL (81.0-99.0); MEAN PLATELET VOLUME 7.9 fl (7.4-10.4); MONOCYTES % 6.1 % (2.0-8.0); NEUTROPHILS % 81.9 % (40.0-76.0); PLATELET 408 x1000/uL (130-400); RED BLOOD CELL COUNT 3.56 mill/uL (4.2-5.4); RED CELL DISTRIBUTION WIDTH 14.8 % (11.6-14.6)
[2018-03-23 08:00] VITALS: BP 158/80
[2018-03-23] MEDS: BUDESONIDE 0.5MG/2ML NEB HHN SCH ×2 (08:18→20:12)
[2018-03-23] MEDS: LOSARTAN POTASSIUM 50 MG TABLET PO SCH (09:00)
[2018-03-23] MEDS: CARVEDILOL 12.5MG TABLET PO SCH ×2 (09:00→21:00)
[2018-03-23] MEDS ORDERED: FUROSEMIDE 80 MG PO SCH (09:00)
[2018-03-23] MEDS ORDERED: MEDICATION NOT ON FORMULARY EA (Pantoprazole Sodium 40 MG) PO SCH (09:00)
[2018-03-23] MEDS ORDERED: MEDICATION NOT ON FORMULARY EA (Sevelamer Carbonate (Renvela) 800 MG) PO SCH (09:00)
[2018-03-23] MEDS ORDERED: GEMFIBROZIL 600 MG PO SCH (09:00)
[2018-03-23] MEDS ORDERED: AMLODIPINE 10MG TABLET PO SCH (09:00)
[2018-03-23] MEDS: AMLODIPINE 5MG TABLET PO SCH ×2 (09:00→21:00)
[2018-03-23] MEDS: FUROSEMIDE 40MG TABLET PO SCH (09:00)
[2018-03-23] MEDS: GEMFIBROZIL 600MG TABLET PO SCH ×2 (09:05→17:24)
[2018-03-23] MEDS: PANTOPRAZOLE 40MG DR TABLET PO SCH ×2 (09:05→17:24)
[2018-03-23] MEDS: ASPIRIN 81MG TABLET PO SCH (09:06)
[2018-03-23] MEDS: INSULIN LISPRO 100 UNITS/ML SUBCUT SCH ×4 (09:10→20:56)
[2018-03-23] MEDS: SEVELAMER CARBONATE 800 MG TABLET PO SCH ×3 (09:12→17:24)
[2018-03-23] MEDS: INSULIN GLARGINE UD 100 UNITS/ML SYR SUBCUT SCH ×2 (10:29→20:57)
[2018-03-23 12:00] VITALS: BP 139/83
[2018-03-23] MEDS: CEFTRIAXONE 1,000 MG in DEXTROSE 5% WATER 50 ML IV SCH (13:44)
[2018-03-23] MEDS: GUAIFENESIN 600MG ER TABLET PO SCH ×2 (13:53→20:54)
[2018-03-23] MEDS: NICOTINE 14MG PATCH TD SCH (13:53)
[2018-03-23] MEDS: METHYLPREDNISOLONE SOD SUCC 40 MG/ML VIAL IV SCH ×2 (13:53→19:11)
[2018-03-23] MEDS: IPRATROPIUM/ALBUTEROL 0.5-3(2.5)MG/3ML NEB HHN SCH ×2 (14:18→20:12)
[2018-03-23 15:18] LABS: CLARITY URINE CLEAR (CLEAR); COLOR URINE YELLOW (YELLOW); KETONES URINE NEGATIVE (NEGATIVE); LEUKOCYTE ESTERASE URINE NEGATIVE (NEGATIVE); NITRITE URINE NEGATIVE (NEGATIVE); OCCULT BLOOD URINE NEGATIVE (NEGATIVE); PH URINE 6.5 (4.5-8.0); PROTEIN URINE 2+ (NEGATIVE); UROBILINOGEN URINE 0.2 E.U./dL (0.2-1.0)
[2018-03-23 16:00] VITALS: BP 154/72
[2018-03-23] MEDS ORDERED: DIPHENHYDRAMINE 50MG/ML VIAL IV NR (16:15)
[2018-03-23] MEDS ORDERED: LACTULOSE 20G/30ML UDC PO PRN (16:45)
[2018-03-23] MEDS ORDERED: LACTULOSE 20G/30ML UDC PO NR (16:45)
[2018-03-23 20:00] VITALS: BP 156/80
[2018-03-23] MEDS ORDERED: EPOETIN ALFA 4000UNITS/ML VIAL SUBCUT SCH (21:00)
[2018-03-23] MEDS ORDERED: GABAPENTIN 300MG CAPSULE PO SCH ×2 (21:00)
[2018-03-23] MEDS ORDERED: LIDOCAINE HCL 1% 20ML VIAL (Pyxis) INJ INFIL NR (21:45)
[2018-03-24 00:09] VITALS: BP 154/75
[2018-03-24] MEDS: IPRATROPIUM/ALBUTEROL 0.5-3(2.5)MG/3ML NEB HHN SCH ×2 (01:33→08:12)
[2018-03-24] MEDS: MORPHINE SULFATE 4 MG/ML CPJ (NOT FOR IM USE) IV PRN ×3 (02:05→10:50)
[2018-03-24] MEDS: METHYLPREDNISOLONE SOD SUCC 40 MG/ML VIAL IV SCH ×2 (02:05→10:49)
[2018-03-24] MEDS: AZITHROMYCIN 500 MG TABLET PO SCH (02:05)
[2018-03-24 04:00] VITALS: BP 145/58
[2018-03-24] MEDS: BLOOD SUGAR DIAGNOSTIC STRIP TEST SCH (06:39)
[2018-03-24 06:48] LABS: HEMATOCRIT. 34.5 % (36.0-48.0); HEMOGLOBIN. 11.2 g/dL (12.0-16.0); MEAN CORPUSCULAR HEMOGLOBIN 32.2 pg (28.0-32.0); MEAN CORPUSCULAR VOLUME 99.3 fL (81.0-99.0); MEAN PLATELET VOLUME 8.2 fl (7.4-10.4); PLATELET 352 x1000/uL (130-400); RED BLOOD CELL COUNT 3.47 mill/uL (4.2-5.4); RED CELL DISTRIBUTION WIDTH 14.7 % (11.6-14.6)
[2018-03-24 08:00] VITALS: BP 162/78
[2018-03-24] MEDS: BUDESONIDE 0.5MG/2ML NEB HHN SCH (08:13)
[2018-03-24 08:43] LABS: PLATELET ESTIMATE NORMAL
[2018-03-24] MEDS: GUAIFENESIN 600MG ER TABLET PO SCH (08:47)
[2018-03-24] MEDS: SEVELAMER CARBONATE 800 MG TABLET PO SCH (08:47)
[2018-03-24] MEDS: GEMFIBROZIL 600MG TABLET PO SCH (08:47)
[2018-03-24] MEDS: FUROSEMIDE 40MG TABLET PO SCH (08:47)
[2018-03-24] MEDS: ASPIRIN 81MG TABLET PO SCH (08:47)
[2018-03-24] MEDS: AMLODIPINE 5MG TABLET PO SCH (08:51)
[2018-03-24] MEDS: CARVEDILOL 12.5MG TABLET PO SCH (08:52)
[2018-03-24] MEDS: PANTOPRAZOLE 40MG DR TABLET PO SCH (08:52)
[2018-03-24] MEDS: NICOTINE 14MG PATCH TD SCH (08:52)
[2018-03-24] MEDS: LOSARTAN POTASSIUM 50 MG TABLET PO SCH (08:52)
[2018-03-24] MEDS: INSULIN LISPRO 100 UNITS/ML SUBCUT SCH (08:53)
[2018-03-24] MEDS ORDERED: FOLIC ACID/VITAMIN B COMP W-C TABLET PO SCH (09:00)
[2018-03-24] MEDS: INSULIN GLARGINE UD 100 UNITS/ML SYR SUBCUT SCH (10:50)
[2018-03-24] MEDS: CEFTRIAXONE 1,000 MG in DEXTROSE 5% WATER 50 ML IV SCH (10:51)
[2018-03-24 12:24] VITALS: BP 145/83
[2018-03-24] MEDS ORDERED: INSULIN LISPRO 100 UNITS/ML SUBCUT SCH ×2 (12:40→13:10)
[2018-03-24 12:55] LABS: PHOSPHORUS 4.2 mg/dL (2.5-4.9)
[2018-03-24] MEDS ORDERED: INSULIN GLARGINE UD 100 UNITS/ML SYR SUBCUT SCH (22:00)
== END 2018-03-24 12:54 | disposition home or self-care (01) | DRG 189 ==
LOC: ER 09:35 → 7WST 15:27 → ENRESERV 20:46 → EDBEDREQ 21:42
PROVIDERS: ADMIT Internal Medicine; ATTEND Internal Medicine
PROC: 5A1D70Z Performance of Urinary Filtration, Intermittent, Less than 6 Hours Per Day (ICD-10-PCS; principal; 2018-03-23)
DX: J96.00 Acute respiratory failure, unspecified whether with hypoxia or hypercapnia (principal); N18.6 End stage renal disease; J44.1 Chronic obstructive pulmonary disease with (acute) exacerbation; I13.2 Hypertensive heart and chronic kidney disease with heart failure and with stage 5 chronic kidney disease, or end stage renal disease; J44.0 Chronic obstructive pulmonary disease with (acute) lower respiratory infection; J45.901 Unspecified asthma with (acute) exacerbation; N25.81 Secondary hyperparathyroidism of renal origin; J20.9 Acute bronchitis, unspecified; E87.5 Hyperkalemia; D63.8 Anemia in other chronic diseases classified elsewhere; E11.22 Type 2 diabetes mellitus with diabetic chronic kidney disease; Z96.641 Presence of right artificial hip joint; E11.40 Type 2 diabetes mellitus with diabetic neuropathy, unspecified; E11.65 Type 2 diabetes mellitus with hyperglycemia; F17.200 Nicotine dependence, unspecified, uncomplicated; I48.0 Paroxysmal atrial fibrillation; I50.9 Heart failure, unspecified; Z99.2 Dependence on renal dialysis; Z83.3 Family history of diabetes mellitus; Z90.710 Acquired absence of both cervix and uterus; Z88.5 Allergy status to narcotic agent; Z88.8 Allergy status to other drugs, medicaments and biological substances; Z79.82 Long term (current) use of aspirin; Z79.899 Other long term (current) drug therapy; Z71.6 Tobacco abuse counseling; Z71.3 Dietary counseling and surveillance
CPT/HCPCS: 36415; 71045; 80048; 82962; 83880; 84100; 84484; 87070; 87804; 93005; 94640; 96372; 96374; 99285; J0696; J1200; J1815; J2270; J2920; J2930; J3490; J7060; J7611; J7620; J7626

== ENCOUNTER 2018-04-04 07:18 | Inpatient (IN) | payer MEDICARE, MEDICAID ==
[~2018-04-04] VITALS: Ht 162.6 cm; Wt 80.3 kg
[~2018-04-04 07:18] MED LIST changes: +GABA-290 PO; -P20 PO
[2018-04-04] MEDS ORDERED: MORPHINE SULFATE 4 MG/ML CPJ (NOT FOR IM USE) IV STA (07:58)
[2018-04-04 08:31] LABS: BASOPHILS % 0.4 % (0.0-2.0); EOSINOPHILS % 0.5 % (0.0-5.0); LYMPHOCYTES % 16.9 % (20.0-50.0); MEAN CORPUSCULAR HEMOGLOBIN 32.7 pg (28.0-32.0); MEAN CORPUSCULAR VOLUME 101.5 fL (81.0-99.0); MEAN PLATELET VOLUME 8.7 fl (7.4-10.4); MONOCYTES % 9.2 % (2.0-8.0); PLATELET 300 x1000/uL (130-400); RED BLOOD CELL COUNT 3.36 mill/uL (4.2-5.4); RED CELL DISTRIBUTION WIDTH 15.8 % (11.6-14.6)
[2018-04-04 08:37] LABS: CHLORIDE 105 mEq/L (98-107)
[2018-04-04] MEDS ORDERED: ASPIRIN 325MG EC TABLET PO ONE (10:00)
[2018-04-04] MEDS ORDERED: INSULIN REGULAR (HUMULIN R) UD 100 UNITS/ML SYR SUBCUT ONE (10:30)
[2018-04-04] MEDS ORDERED: HYDROCODONE/ACETAMINOPHEN 5/325MG TABLET PO ONE (13:00)
[2018-04-04] MEDS: SEVELAMER CARBONATE 800 MG TABLET PO SCH (17:00)
[2018-04-04 17:28] LABS: CLARITY URINE CLEAR (CLEAR); COLOR URINE YELLOW (YELLOW); KETONES URINE NEGATIVE (NEGATIVE); LEUKOCYTE ESTERASE URINE NEGATIVE (NEGATIVE); NITRITE URINE NEGATIVE (NEGATIVE); OCCULT BLOOD URINE NEGATIVE (NEGATIVE); PH URINE 5.5 (4.5-8.0); PROTEIN URINE 3+ (NEGATIVE); UROBILINOGEN URINE 0.2 E.U./dL (0.2-1.0)
[2018-04-04] MEDS ORDERED: MAGNESIUM/ALUMINUM HYDROXIDE/SIMETHICONE 30ML UDC PO PRN (17:30)
[2018-04-04] MEDS ORDERED: DEXTROSE 50% WATER 50ML SYRINGE IV PRN ×2 (17:30)
[2018-04-04] MEDS ORDERED: DOCUSATE SODIUM 100MG CAPSULE PO PRN (17:30)
[2018-04-04] MEDS: INSULIN LISPRO 100 UNITS/ML SUBCUT SCH ×2 (18:06→21:40)
[2018-04-04] MEDS ORDERED: EPOETIN ALFA 10000UNITS/ML VIAL SUBCUT SCH (21:00)
[2018-04-04] MEDS: IPRATROPIUM/ALBUTEROL 0.5-3(2.5)MG/3ML NEB INH PRN (21:07)
[2018-04-04] MEDS: TRAZODONE HCL 50MG TABLET PO PRN (21:11)
[2018-04-04] MEDS: GABAPENTIN 300MG CAPSULE PO SCH (21:11)
[2018-04-04] MEDS: ACETAMINOPHEN 325MG TABLET PO PRN (21:11)
[2018-04-04] MEDS: BLOOD SUGAR DIAGNOSTIC STRIP TEST SCH (21:12)
[2018-04-04 21:44] VITALS: BP 155/76
[2018-04-04] MEDS ORDERED: INSULIN GLARGINE UD 100 UNITS/ML SYR SUBCUT SCH (22:00)
[2018-04-05] VITALS: BP 138/45
[2018-04-05] MEDS: INSULIN GLARGINE UD 100 UNITS/ML SYR SUBCUT SCH ×2 (01:05→21:38)
[2018-04-05 04:00] VITALS: BP 113/65
[2018-04-05] MEDS: ACETAMINOPHEN 325MG TABLET PO PRN ×3 (04:17→16:35)
[2018-04-05] MEDS: INSULIN LISPRO 100 UNITS/ML SUBCUT SCH ×4 (06:12→20:17)
[2018-04-05 06:34] LABS: BASOPHILS % 0.5 % (0.0-2.0); EOSINOPHILS % 2.2 % (0.0-5.0); HEMATOCRIT. 32.3 % (36.0-48.0); HEMOGLOBIN. 10.7 g/dL (12.0-16.0); LYMPHOCYTES % 25.6 % (20.0-50.0); MEAN CORPUSCULAR HEMOGLOBIN 33.5 pg (28.0-32.0); MEAN CORPUSCULAR VOLUME 101.5 fL (81.0-99.0); MEAN PLATELET VOLUME 9.2 fl (7.4-10.4); NEUTROPHILS % 57.7 % (40.0-76.0); PLATELET 289 x1000/uL (130-400); RED BLOOD CELL COUNT 3.18 mill/uL (4.2-5.4); RED CELL DISTRIBUTION WIDTH 15.7 % (11.6-14.6)
[2018-04-05 07:42] LABS: PHOSPHORUS 4.3 mg/dL (2.5-4.9)
[2018-04-05 07:46] LABS: T4 FREE 0.91 ng/dL (0.76-1.46)
[2018-04-05 08:00] VITALS: BP 167/65
[2018-04-05] MEDS: SEVELAMER CARBONATE 800 MG TABLET PO SCH ×5 (08:28→16:34)
[2018-04-05] MEDS: CARVEDILOL 12.5MG TABLET PO SCH (08:29)
[2018-04-05] MEDS: PANTOPRAZOLE SODIUM 40 MG/VIAL IV SCH (08:29)
[2018-04-05] MEDS: ASPIRIN 81MG TABLET PO SCH (08:29)
[2018-04-05] MEDS: AMLODIPINE 10MG TABLET PO SCH (08:30)
[2018-04-05] MEDS: FUROSEMIDE 40MG TABLET PO SCH (08:30)
[2018-04-05] MEDS: FOLIC ACID/VITAMIN B COMP W-C TABLET PO SCH (08:31)
[2018-04-05] MEDS: GABAPENTIN 300MG CAPSULE PO SCH ×2 (08:32→16:32)
[2018-04-05] MEDS ORDERED: REGADENOSON 0.4 MG/5 ML IV ONE ×2 (11:00→12:16)
[2018-04-05] MEDS: BLOOD SUGAR DIAGNOSTIC STRIP TEST SCH ×3 (12:44→20:17)
[2018-04-05] MEDS: HYDROCODONE/ACETAMINOPHEN 5/325MG TABLET PO PRN ×2 (15:04→20:16)
[2018-04-05 15:33] VITALS: BP 171/89
[2018-04-05] MEDS: CLONIDINE 0.1MG TABLET PO PRN (15:36)
[2018-04-05] MEDS: LIDOCAINE 5% PATCH TOP SCH (15:40)
[2018-04-05 22:00] VITALS: BP 165/75
[2018-04-05] MEDS: NITROGLYCERIN 0.4MG TABLET SL SL PRN (23:07)
[2018-04-06] VITALS: BP 145/75
[2018-04-06 04:00] VITALS: BP 144/72
[2018-04-06] MEDS: IPRATROPIUM/ALBUTEROL 0.5-3(2.5)MG/3ML NEB INH PRN (05:20)
[2018-04-06] MEDS: BLOOD SUGAR DIAGNOSTIC STRIP TEST SCH ×4 (06:42→20:38)
[2018-04-06 07:11] LABS: BASOPHILS % 0.3 % (0.0-2.0); EOSINOPHILS % 1.9 % (0.0-5.0); HEMATOCRIT. 32.1 % (36.0-48.0); HEMOGLOBIN. 10.2 g/dL (12.0-16.0); LYMPHOCYTES % 17.4 % (20.0-50.0); MEAN CORPUSCULAR HEMOGLOBIN 32.6 pg (28.0-32.0); MEAN CORPUSCULAR VOLUME 102.1 fL (81.0-99.0); MEAN PLATELET VOLUME 9.1 fl (7.4-10.4); MONOCYTES % 12.3 % (2.0-8.0); NEUTROPHILS % 68.1 % (40.0-76.0); PLATELET 266 x1000/uL (130-400); RED BLOOD CELL COUNT 3.14 mill/uL (4.2-5.4); RED CELL DISTRIBUTION WIDTH 15.6 % (11.6-14.6)
[2018-04-06] MEDS: INSULIN LISPRO 100 UNITS/ML SUBCUT SCH ×4 (07:40→20:38)
[2018-04-06] MEDS: SEVELAMER CARBONATE 800 MG TABLET PO SCH ×6 (07:40→17:33)
[2018-04-06 08:00] VITALS: BP 173/91
[2018-04-06] MEDS: PANTOPRAZOLE SODIUM 40 MG/VIAL IV SCH (08:48)
[2018-04-06] MEDS: FUROSEMIDE 40MG TABLET PO SCH (08:48)
[2018-04-06] MEDS: FOLIC ACID/VITAMIN B COMP W-C TABLET PO SCH (08:48)
[2018-04-06] MEDS: GABAPENTIN 300MG CAPSULE PO SCH ×2 (08:49→17:34)
[2018-04-06] MEDS: AMLODIPINE 10MG TABLET PO SCH (08:49)
[2018-04-06] MEDS: ASPIRIN 81MG TABLET PO SCH (08:49)
[2018-04-06] MEDS: CARVEDILOL 12.5MG TABLET PO SCH (08:50)
[2018-04-06] MEDS: LIDOCAINE 5% PATCH TOP SCH ×2 (08:51→20:00)
[2018-04-06 12:00] VITALS: BP 143/67
[2018-04-06] MEDS: HYDROCODONE/ACETAMINOPHEN 5/325MG TABLET PO PRN ×2 (12:32→17:37)
[2018-04-06 16:00] VITALS: BP 154/86
[2018-04-06] MEDS ORDERED: LIDOCAINE 5% PATCH TOP SCH (17:00)
[2018-04-06 20:00] VITALS: BP 152/94
[2018-04-06] MEDS: TRAZODONE HCL 50MG TABLET PO PRN (21:22)
[2018-04-06] MEDS: INSULIN GLARGINE UD 100 UNITS/ML SYR SUBCUT SCH (21:25)
[2018-04-07] VITALS (9 sets, daily range): BP systolic 133–173; BP diastolic 58–79
[2018-04-07 06:30] LABS: BASOPHILS % 0.3 % (0.0-2.0); EOSINOPHILS % 1.6 % (0.0-5.0); HEMATOCRIT. 29.7 % (36.0-48.0); HEMOGLOBIN. 9.7 g/dL (12.0-16.0); LYMPHOCYTES % 23.1 % (20.0-50.0); MEAN CORPUSCULAR VOLUME 101.4 fL (81.0-99.0); MEAN PLATELET VOLUME 9.3 fl (7.4-10.4); PLATELET 238 x1000/uL (130-400); RED BLOOD CELL COUNT 2.93 mill/uL (4.2-5.4)
[2018-04-07] MEDS: BLOOD SUGAR DIAGNOSTIC STRIP TEST SCH ×4 (06:48→20:44)
[2018-04-07 06:57] LABS: PROTHROMBIN TIME 10.4 sec (9.1-11.1)
[2018-04-07] MEDS: INSULIN LISPRO 100 UNITS/ML SUBCUT SCH ×4 (07:40→20:46)
[2018-04-07] MEDS: SEVELAMER CARBONATE 800 MG TABLET PO SCH ×6 (07:40→17:25)
[2018-04-07] MEDS ORDERED: MIDAZOLAM HCL 2 MG/2 ML VIAL ONE (08:13)
[2018-04-07] MEDS ORDERED: LIDOCAINE HCL 1% 20ML VIAL (Pyxis) INJ ONE (08:14)
[2018-04-07] MEDS ORDERED: IODIXANOL 320MG/ML 100 ML BOTTLE IV ONE (08:14)
[2018-04-07] MEDS ORDERED: FENTANYL CITRATE/PF 50MCG/ML 2ML VIAL ONE (08:14)
[2018-04-07] MEDS: AMLODIPINE 10MG TABLET PO SCH (08:41)
[2018-04-07] MEDS: ASPIRIN 81MG TABLET PO SCH (08:42)
[2018-04-07] MEDS: CARVEDILOL 12.5MG TABLET PO SCH (08:42)
[2018-04-07] MEDS: GABAPENTIN 300MG CAPSULE PO SCH ×2 (08:42→17:25)
[2018-04-07] MEDS: FUROSEMIDE 40MG TABLET PO SCH (08:42)
[2018-04-07] MEDS: FOLIC ACID/VITAMIN B COMP W-C TABLET PO SCH (09:00)
[2018-04-07] MEDS: LIDOCAINE 5% PATCH TOP SCH (09:00)
[2018-04-07] MEDS: PANTOPRAZOLE SODIUM 40 MG/VIAL IV SCH (09:00)
[2018-04-07] MEDS ORDERED: IOHEXOL-300 100 ML BOTTLE ONE (09:07)
[2018-04-07] MEDS ORDERED: ACETAMINOPHEN 325MG TABLET PO PRN (10:00)
[2018-04-07] MEDS ORDERED: ATROPINE SULFATE 1MG/10ML SYR IV PRN (10:00)
[2018-04-07] MEDS: HYDROCODONE/ACETAMINOPHEN 5/325MG TABLET PO PRN (12:14)
[2018-04-07] MEDS: DOCUSATE SODIUM 100MG CAPSULE PO SCH (17:00)
[2018-04-07 17:15] LABS: BG CARBOXYHEMOGLOBIN 0.7 % (0.5-1.5); BG DEOXYHEMOGLOBIN 4.1 % (0.0-5.0); BG FRACTION INSPIRED OXYGEN 28; BG HCO3 ACT 24.3 mmol/L (22.0-26.0); BG METHEMOGLOBIN 0.4 % (0.0-1.5); BG OXYGEN SATURATION 95.9 % (92.0-98.5); BG OXYHEMOGLOBIN 94.8 % (94.0-97.0); BG PCO2 48.9 mmHg (35.0-45.0); BG PH 7.315 (7.350-7.450); BG PO2 90.5 mmHg (75.0-100.0); BG SAMPLE SITE LEFT BRACHIAL; BG TOTAL HEMOGLOBIN 10.7 g/dL (12.0-18.0); BG VENT MODE NASAL CANNULA
[2018-04-07 19:44] LABS: CHLORIDE 108 mEq/L (98-107)
[2018-04-07] MEDS ORDERED: MORPHINE SULFATE 4 MG/ML CPJ (NOT FOR IM USE) IV NR (20:15)
[2018-04-07] MEDS: INSULIN GLARGINE UD 100 UNITS/ML SYR SUBCUT SCH (21:15)
[2018-04-08] VITALS (13 sets, daily range): BP systolic 115–153; BP diastolic 56–81
[2018-04-08] MEDS: BLOOD SUGAR DIAGNOSTIC STRIP TEST SCH ×4 (05:32→21:17)
[2018-04-08] MEDS: INSULIN LISPRO 100 UNITS/ML SUBCUT SCH ×4 (07:20→21:34)
[2018-04-08 07:29] LABS: BASOPHILS % 0.4 % (0.0-2.0); HEMATOCRIT. 31.6 % (36.0-48.0); HEMOGLOBIN. 10.3 g/dL (12.0-16.0); LYMPHOCYTES % 22.3 % (20.0-50.0); MEAN CORPUSCULAR HEMOGLOBIN 32.7 pg (28.0-32.0); MEAN CORPUSCULAR VOLUME 100.5 fL (81.0-99.0); MEAN PLATELET VOLUME 9.5 fl (7.4-10.4); MONOCYTES % 11.6 % (2.0-8.0); NEUTROPHILS % 63.7 % (40.0-76.0); PLATELET 259 x1000/uL (130-400); RED BLOOD CELL COUNT 3.14 mill/uL (4.2-5.4); RED CELL DISTRIBUTION WIDTH 15.2 % (11.6-14.6)
[2018-04-08] MEDS: SEVELAMER CARBONATE 800 MG TABLET PO SCH ×3 (07:59→16:53)
[2018-04-08] MEDS: PANTOPRAZOLE SODIUM 40 MG/VIAL IV SCH (08:00)
[2018-04-08] MEDS: FUROSEMIDE 40MG TABLET PO SCH (08:00)
[2018-04-08] MEDS: FOLIC ACID/VITAMIN B COMP W-C TABLET PO SCH (08:00)
[2018-04-08] MEDS: DOCUSATE SODIUM 100MG CAPSULE PO SCH ×2 (08:00→16:18)
[2018-04-08] MEDS: LIDOCAINE 5% PATCH TOP SCH (08:01)
[2018-04-08] MEDS: GABAPENTIN 300MG CAPSULE PO SCH ×2 (08:01→21:35)
[2018-04-08] MEDS: CARVEDILOL 12.5MG TABLET PO SCH (08:01)
[2018-04-08] MEDS: AMLODIPINE 10MG TABLET PO SCH (08:01)
[2018-04-08] MEDS: ASPIRIN 81MG TABLET PO SCH (08:01)
[2018-04-08] MEDS: HYDROCODONE/ACETAMINOPHEN 5/325MG TABLET PO PRN (11:30)
[2018-04-08] MEDS: HYDROCODONE/ACETAMINOPHEN 10/325MG TABLET PO PRN (20:02)
[2018-04-08] MEDS: INSULIN GLARGINE UD 100 UNITS/ML SYR SUBCUT SCH (21:35)
[2018-04-09] VITALS (11 sets, daily range): BP systolic 111–161; BP diastolic 48–98
[2018-04-09] MEDS: BLOOD SUGAR DIAGNOSTIC STRIP TEST SCH ×4 (05:51→20:27)
[2018-04-09 07:21] LABS: BASOPHILS % 0.3 % (0.0-2.0); EOSINOPHILS % 2.5 % (0.0-5.0); HEMATOCRIT. 29.8 % (36.0-48.0); LYMPHOCYTES % 22.6 % (20.0-50.0); MEAN CORPUSCULAR HEMOGLOBIN 33.2 pg (28.0-32.0); MEAN CORPUSCULAR VOLUME 99.5 fL (81.0-99.0); MEAN PLATELET VOLUME 9.7 fl (7.4-10.4); MONOCYTES % 12.9 % (2.0-8.0); NEUTROPHILS % 61.7 % (40.0-76.0); PLATELET 254 x1000/uL (130-400); RED CELL DISTRIBUTION WIDTH 14.8 % (11.6-14.6)
[2018-04-09] MEDS: FOLIC ACID/VITAMIN B COMP W-C TABLET PO SCH (08:00)
[2018-04-09] MEDS: PANTOPRAZOLE SODIUM 40 MG/VIAL IV SCH (08:00)
[2018-04-09] MEDS: FUROSEMIDE 40MG TABLET PO SCH (08:00)
[2018-04-09] MEDS: DOCUSATE SODIUM 100MG CAPSULE PO SCH ×2 (08:00→16:32)
[2018-04-09] MEDS: ASPIRIN 81MG TABLET PO SCH (08:00)
[2018-04-09] MEDS: CARVEDILOL 12.5MG TABLET PO SCH (08:01)
[2018-04-09] MEDS: AMLODIPINE 10MG TABLET PO SCH (08:01)
[2018-04-09] MEDS: HYDROCODONE/ACETAMINOPHEN 10/325MG TABLET PO PRN ×4 (08:01→15:34)
[2018-04-09] MEDS: INSULIN LISPRO 100 UNITS/ML SUBCUT SCH ×4 (08:02→20:27)
[2018-04-09] MEDS: SEVELAMER CARBONATE 800 MG TABLET PO SCH ×3 (08:03→16:33)
[2018-04-09] MEDS: LIDOCAINE 5% PATCH TOP SCH (08:07)
[2018-04-09] MEDS ORDERED: AZITHROMYCIN 500 MG TABLET PO NR (11:00)
[2018-04-09] MEDS: LACTOBACILLUS GG CAPSULE PO SCH (14:00)
[2018-04-09] MEDS: CLONIDINE 0.1MG TABLET PO PRN (16:33)
[2018-04-09] MEDS: GABAPENTIN 300MG CAPSULE PO SCH (21:22)
[2018-04-09] MEDS: INSULIN GLARGINE UD 100 UNITS/ML SYR SUBCUT SCH (21:28)
[2018-04-10] VITALS (12 sets, daily range): BP systolic 108–163; BP diastolic 67–86
[2018-04-10] MEDS: INSULIN LISPRO 100 UNITS/ML SUBCUT SCH ×4 (06:54→21:44)
[2018-04-10] MEDS: BLOOD SUGAR DIAGNOSTIC STRIP TEST SCH ×4 (06:54→20:22)
[2018-04-10 07:19] LABS: BASOPHILS % 0.7 % (0.0-2.0); EOSINOPHILS % 2.2 % (0.0-5.0); HEMATOCRIT. 27.6 % (36.0-48.0); HEMOGLOBIN. 9.2 g/dL (12.0-16.0); LYMPHOCYTES % 23.7 % (20.0-50.0); MEAN CORPUSCULAR HEMOGLOBIN 32.9 pg (28.0-32.0); MEAN CORPUSCULAR VOLUME 99.2 fL (81.0-99.0); MEAN PLATELET VOLUME 8.8 fl (7.4-10.4); MONOCYTES % 10.4 % (2.0-8.0); PLATELET 263 x1000/uL (130-400); RED BLOOD CELL COUNT 2.79 mill/uL (4.2-5.4); RED CELL DISTRIBUTION WIDTH 14.2 % (11.6-14.6)
[2018-04-10] MEDS: PANTOPRAZOLE SODIUM 40 MG/VIAL IV SCH (08:52)
[2018-04-10] MEDS: AZITHROMYCIN 250 MG TABLET PO SCH (08:52)
[2018-04-10] MEDS: FOLIC ACID/VITAMIN B COMP W-C TABLET PO SCH (08:52)
[2018-04-10] MEDS: SEVELAMER CARBONATE 800 MG TABLET PO SCH ×3 (08:52→17:32)
[2018-04-10] MEDS: DOCUSATE SODIUM 100MG CAPSULE PO SCH ×2 (08:52→17:32)
[2018-04-10] MEDS: FUROSEMIDE 40MG TABLET PO SCH (08:53)
[2018-04-10] MEDS: ASPIRIN 81MG TABLET PO SCH (08:53)
[2018-04-10] MEDS: LACTOBACILLUS GG CAPSULE PO SCH (08:53)
[2018-04-10] MEDS: AMLODIPINE 10MG TABLET PO SCH (08:53)
[2018-04-10] MEDS: CARVEDILOL 12.5MG TABLET PO SCH (08:54)
[2018-04-10] MEDS: LIDOCAINE 5% PATCH TOP SCH (08:55)
[2018-04-10 09:19] LABS: BG BASE EXCESS -2.8 mmol/L (-2.0-2.0); BG CARBOXYHEMOGLOBIN 0.5 % (0.5-1.5); BG DEOXYHEMOGLOBIN 12.5 % (0.0-5.0); BG FRACTION INSPIRED OXYGEN 21; BG HCO3 ACT 23.5 mmol/L (22.0-26.0); BG METHEMOGLOBIN 0.3 % (0.0-1.5); BG OXYGEN SATURATION 87.4 % (92.0-98.5); BG OXYHEMOGLOBIN 86.7 % (94.0-97.0); BG PH 7.316 (7.350-7.450); BG PO2 55.2 mmHg (75.0-100.0); BG SAMPLE SITE LEFT RADIAL; BG TOTAL HEMOGLOBIN 10.1 g/dL (12.0-18.0); BG VENT MODE ROOM AIR
[2018-04-10] MEDS: METHYLPREDNISOLONE SOD SUCC 40 MG/ML VIAL IV SCH ×2 (10:42→17:32)
[2018-04-10] MEDS ORDERED: BENZONATATE 100MG CAPSULE PO PRN (11:30)
[2018-04-10] MEDS ORDERED: SODIUM POLYSTYRENE SULFONATE 15 G/60 ML BOT PO NR (11:30)
[2018-04-10] MEDS: IPRATROPIUM/ALBUTEROL 0.5-3(2.5)MG/3ML NEB INH SCH ×3 (11:44→21:09)
[2018-04-10 14:40] LABS: BG BASE EXCESS -4.3 mmol/L (-2.0-2.0); BG CARBOXYHEMOGLOBIN 0.3 % (0.5-1.5); BG DEOXYHEMOGLOBIN 4.7 % (0.0-5.0); BG FRACTION INSPIRED OXYGEN 28; BG HCO3 ACT 22.3 mmol/L (22.0-26.0); BG METHEMOGLOBIN 0.4 % (0.0-1.5); BG OXYGEN SATURATION 95.3 % (92.0-98.5); BG OXYHEMOGLOBIN 94.6 % (94.0-97.0); BG PCO2 48.3 mmHg (35.0-45.0); BG PH 7.283 (7.350-7.450); BG PO2 85.2 mmHg (75.0-100.0); BG SAMPLE SITE LEFT RADIAL; BG VENT MODE NASAL CANNULA
[2018-04-10] MEDS: NITROGLYCERIN 0.4MG TABLET SL SL PRN ×4 (20:17→22:58)
[2018-04-10] MEDS: GABAPENTIN 300MG CAPSULE PO SCH (20:17)
[2018-04-10] MEDS: INSULIN GLARGINE UD 100 UNITS/ML SYR SUBCUT SCH (21:45)
[2018-04-10] MEDS: DIPHENHYDRAMINE 50MG/ML VIAL IV PRN (22:16)
[2018-04-10] MEDS: HYDROCODONE/ACETAMINOPHEN 10/325MG TABLET PO PRN (22:20)
[2018-04-10] MEDS: CLONIDINE 0.1MG TABLET PO PRN (22:58)
[2018-04-11] VITALS (65 sets, daily range): BP systolic 93–158; BP diastolic 56–125
[2018-04-11] MEDS: IPRATROPIUM/ALBUTEROL 0.5-3(2.5)MG/3ML NEB INH SCH ×6 (00:28→20:49)
[2018-04-11] MEDS: NITROGLYCERIN 0.4MG TABLET SL SL PRN ×7 (02:34→12:37)
[2018-04-11] MEDS: METHYLPREDNISOLONE SOD SUCC 40 MG/ML VIAL IV SCH ×3 (02:35→18:00)
[2018-04-11] MEDS: BLOOD SUGAR DIAGNOSTIC STRIP TEST SCH ×4 (05:52→21:00)
[2018-04-11] MEDS: INSULIN LISPRO 100 UNITS/ML SUBCUT SCH ×4 (06:44→21:29)
[2018-04-11 07:56] LABS: HEMATOCRIT. 25.6 % (36.0-48.0); HEMOGLOBIN. 8.6 g/dL (12.0-16.0); MEAN CORPUSCULAR HEMOGLOBIN 33.3 pg (28.0-32.0); MEAN CORPUSCULAR VOLUME 98.6 fL (81.0-99.0); MEAN PLATELET VOLUME 9.4 fl (7.4-10.4); PLATELET 293 x1000/uL (130-400); RED CELL DISTRIBUTION WIDTH 14.2 % (11.6-14.6)
[2018-04-11 07:57] LABS: BG BASE EXCESS -4.8 mmol/L (-2.0-2.0); BG CARBOXYHEMOGLOBIN 0.9 % (0.5-1.5); BG DEOXYHEMOGLOBIN 3.2 % (0.0-5.0); BG HCO3 ACT 22.2 mmol/L (22.0-26.0); BG METHEMOGLOBIN 0.2 % (0.0-1.5); BG OXYGEN SATURATION 96.8 % (92.0-98.5); BG OXYHEMOGLOBIN 95.7 % (94.0-97.0); BG PCO2 50.9 mmHg (35.0-45.0); BG PH 7.258 (7.350-7.450); BG PO2 100.9 mmHg (75.0-100.0); BG SAMPLE SITE LEFT RADIAL; BG TOTAL HEMOGLOBIN 9.3 g/dL (12.0-18.0); BG VENT MODE NASAL CANNULA
[2018-04-11] MEDS: SEVELAMER CARBONATE 800 MG TABLET PO SCH ×3 (08:08→18:00)
[2018-04-11] MEDS: LACTOBACILLUS GG CAPSULE PO SCH (08:09)
[2018-04-11] MEDS: AMLODIPINE 10MG TABLET PO SCH (08:09)
[2018-04-11] MEDS: FUROSEMIDE 40MG TABLET PO SCH (08:09)
[2018-04-11] MEDS: FOLIC ACID/VITAMIN B COMP W-C TABLET PO SCH (08:09)
[2018-04-11] MEDS: PANTOPRAZOLE SODIUM 40 MG/VIAL IV SCH (08:09)
[2018-04-11] MEDS: DOCUSATE SODIUM 100MG CAPSULE PO SCH ×2 (08:09→18:00)
[2018-04-11] MEDS: CARVEDILOL 12.5MG TABLET PO SCH ×2 (08:09→08:42)
[2018-04-11] MEDS: ASPIRIN 81MG TABLET PO SCH (08:09)
[2018-04-11] MEDS: AZITHROMYCIN 250 MG TABLET PO SCH (08:09)
[2018-04-11] MEDS: LIDOCAINE 5% PATCH TOP SCH (08:27)
[2018-04-11] MEDS ORDERED: MORPHINE SULFATE 4 MG/ML CPJ (NOT FOR IM USE) IV PRN (10:15)
[2018-04-11] MEDS: DIPHENHYDRAMINE 50MG/ML VIAL IV PRN (10:47)
[2018-04-11] MEDS: NITROGLYCERIN OINT 1GM/INCH UDPKT TD SCH (12:42)
[2018-04-11] MEDS: NITROGLYCERIN 50MG PREMIX 250 ML IV PRN (13:46)
[2018-04-11] MEDS ORDERED: LORAZEPAM 2MG/ML CPJ IV STA (13:48)
[2018-04-11] MEDS ORDERED: HEPARIN 25,000 UNITS PREMIX 500 ML IV SCH (14:00)
[2018-04-11] MEDS ORDERED: HEPARIN 5000 UNITS/ML VIAL IV SCH (14:12)
[2018-04-11] MEDS ORDERED: HEPARIN 5000 UNITS/ML VIAL IV PRN ×2 (14:15)
[2018-04-11] MEDS: HEPARIN 25,000 UNITS PREMIX 500 ML IV PRN (14:37)
[2018-04-11] MEDS ORDERED: LORAZEPAM 2MG/ML CPJ IV PRN (15:00)
[2018-04-11 15:18] LABS: INR 1.1; PARTIAL THROMBOPLASTIN TIME 25.9 sec (23.4-31.0); PROTHROMBIN TIME 10.9 sec (9.1-11.1)
[2018-04-11] MEDS ORDERED: NITROGLYCERIN 0.4MG TABLET SL SL PRN (15:30)
[2018-04-11] MEDS ORDERED: ACETAMINOPHEN 325MG TABLET PO PRN (15:30)
[2018-04-11 16:46] LABS: PLATELET ESTIMATE NORMAL
[2018-04-11] MEDS: LORAZEPAM 2MG/ML CPJ IV SCH (21:00)
[2018-04-11] MEDS ORDERED: EPOETIN ALFA 4000UNITS/ML VIAL SUBCUT SCH (21:00)
[2018-04-11] MEDS: GABAPENTIN 300MG CAPSULE PO SCH (21:28)
[2018-04-11] MEDS: SODIUM CHLORIDE 0.9% INJ 3ML FLUSH IVF SCH (22:00)
[2018-04-12] VITALS (111 sets, daily range): BP systolic 106–166; BP diastolic 45–105
[2018-04-12] MEDS: EPOETIN ALFA 4000UNITS/ML VIAL SUBCUT SCH (00:08)
[2018-04-12] MEDS: INSULIN GLARGINE UD 100 UNITS/ML SYR SUBCUT SCH ×2 (00:08→21:47)
[2018-04-12] MEDS: NITROGLYCERIN OINT 1GM/INCH UDPKT TD SCH ×4 (00:09→21:45)
[2018-04-12] MEDS: IPRATROPIUM/ALBUTEROL 0.5-3(2.5)MG/3ML NEB INH SCH ×6 (00:14→21:25)
[2018-04-12] MEDS: METHYLPREDNISOLONE SOD SUCC 40 MG/ML VIAL IV SCH ×2 (02:22→17:06)
[2018-04-12] MEDS: NITROGLYCERIN 50MG PREMIX 250 ML IV PRN ×2 (03:56→18:00)
[2018-04-12] MEDS: SODIUM CHLORIDE 0.9% INJ 3ML FLUSH IVF SCH ×3 (06:00→22:00)
[2018-04-12 06:10] LABS: HEMOGLOBIN. 7.9 g/dL (12.0-16.0); MEAN CORPUSCULAR HEMOGLOBIN 33.5 pg (28.0-32.0); MEAN PLATELET VOLUME 9.4 fl (7.4-10.4); PLATELET 301 x1000/uL (130-400); RED BLOOD CELL COUNT 2.37 mill/uL (4.2-5.4)
[2018-04-12 06:11] LABS: CHLORIDE 97 mEq/L (98-107)
[2018-04-12 06:15] LABS: PHOSPHORUS 4.2 mg/dL (2.5-4.9)
[2018-04-12] MEDS: SEVELAMER CARBONATE 800 MG TABLET PO SCH ×3 (06:18→17:06)
[2018-04-12] MEDS: BLOOD SUGAR DIAGNOSTIC STRIP TEST SCH ×4 (06:18→20:48)
[2018-04-12] MEDS: LORAZEPAM 2MG/ML CPJ IV SCH ×4 (06:18→21:46)
[2018-04-12] MEDS: INSULIN LISPRO 100 UNITS/ML SUBCUT SCH ×4 (06:19→21:47)
[2018-04-12] MEDS: LIDOCAINE 5% PATCH TOP SCH (09:36)
[2018-04-12] MEDS: ASPIRIN 81MG TABLET PO SCH (09:37)
[2018-04-12] MEDS: DOCUSATE SODIUM 100MG CAPSULE PO SCH ×2 (09:37→17:07)
[2018-04-12] MEDS: AMLODIPINE 10MG TABLET PO SCH (09:37)
[2018-04-12] MEDS: PANTOPRAZOLE SODIUM 40 MG/VIAL IV SCH (09:37)
[2018-04-12] MEDS: LACTOBACILLUS GG CAPSULE PO SCH (09:37)
[2018-04-12] MEDS: CARVEDILOL 12.5MG TABLET PO SCH (09:38)
[2018-04-12] MEDS: FUROSEMIDE 40MG TABLET PO SCH (09:38)
[2018-04-12] MEDS: FOLIC ACID/VITAMIN B COMP W-C TABLET PO SCH (09:38)
[2018-04-12] MEDS: HYDROCODONE/ACETAMINOPHEN 10/325MG TABLET PO PRN ×2 (09:57→20:30)
[2018-04-12 10:09] LABS: PLATELET ESTIMATE NORMAL
[2018-04-12] MEDS: AZITHROMYCIN 250 MG TABLET PO SCH (11:29)
[2018-04-12] MEDS: HEPARIN 25,000 UNITS PREMIX 500 ML IV PRN (11:47)
[2018-04-12] MEDS: THEOPHYLLINE ANHYDROUS 80 MG/15 ML 120ML PO SCH ×2 (13:44→20:31)
[2018-04-12 14:25] LABS: BG BASE EXCESS -3.7 mmol/L (-2.0-2.0); BG CARBOXYHEMOGLOBIN 0.5 % (0.5-1.5); BG DEOXYHEMOGLOBIN 16.2 % (0.0-5.0); BG FRACTION INSPIRED OXYGEN 30; BG HCO3 ACT 22.6 mmol/L (22.0-26.0); BG METHEMOGLOBIN 0.3 % (0.0-1.5); BG OXYGEN SATURATION 83.7 % (92.0-98.5); BG PCO2 46.6 mmHg (35.0-45.0); BG PH 7.303 (7.350-7.450); BG PO2 51.8 mmHg (75.0-100.0); BG SAMPLE SITE LEFT RADIAL; BG TOTAL HEMOGLOBIN 8.6 g/dL (12.0-18.0); BG VENT MODE NASAL CANNULA
[2018-04-12] MEDS ORDERED: LIDOCAINE HCL/PF 1% 2ML VIAL ONE (15:13)
[2018-04-12] MEDS: ACETYLCYSTEINE 100MG/ML 10% VIAL 4ML INH SCH (16:48)
[2018-04-12] MEDS: ALLOPURINOL 300 MG TABLET PO SCH (20:29)
[2018-04-12] MEDS: GABAPENTIN 300MG CAPSULE PO SCH (20:29)
[2018-04-12] MEDS: ALPRAZOLAM 0.5 MG TABLET PO PRN (20:31)
[2018-04-12] MEDS ORDERED: CHLORHEXIDINE GLUCONATE 4% EXTERNAL USE TOP SCH (21:00)
[2018-04-12] MEDS ORDERED: ASCORBIC ACID 500 MG TABLET PO SCH (21:00)
[2018-04-12] MEDS ORDERED: BISACODYL 10MG SUPP PR PRN (21:00)
[2018-04-12] MEDS ORDERED: DOCUSATE SODIUM 100MG CAPSULE PO SCH (21:00)
[2018-04-12] MEDS ORDERED: EPOETIN ALFA 10000UNITS/ML VIAL SUBCUT NR (21:30)
[2018-04-12] MEDS: DIPHENHYDRAMINE 50MG/ML VIAL IV PRN (23:06)
[2018-04-13] VITALS (84 sets, daily range): BP systolic 27–266; BP diastolic 27–265
[2018-04-13] MEDS: ACETYLCYSTEINE 100MG/ML 10% VIAL 4ML INH SCH ×2 (00:40→08:25)
[2018-04-13] MEDS: IPRATROPIUM/ALBUTEROL 0.5-3(2.5)MG/3ML NEB INH SCH ×3 (00:40→08:24)
[2018-04-13] MEDS: ALPRAZOLAM 0.5 MG TABLET PO PRN (01:14)
[2018-04-13] MEDS: METHYLPREDNISOLONE SOD SUCC 40 MG/ML VIAL IV SCH (01:14)
[2018-04-13] MEDS ORDERED: INSULIN REGULAR (DRIP) 100 UNITS in SODIUM CHLORIDE 0.9% 99 ML IV SCH (01:15)
[2018-04-13] MEDS: HEPARIN 25,000 UNITS PREMIX 500 ML IV PRN (02:57)
[2018-04-13 03:54] LABS: BG BASE EXCESS -1.7 mmol/L (-2.0-2.0); BG CARBOXYHEMOGLOBIN 0.9 % (0.5-1.5); BG FRACTION INSPIRED OXYGEN 32; BG METHEMOGLOBIN 0.4 % (0.0-1.5); BG OXYHEMOGLOBIN 95.7 % (94.0-97.0); BG PCO2 44.1 mmHg (35.0-45.0); BG PH 7.353 (7.350-7.450); BG PO2 92.8 mmHg (75.0-100.0); BG SAMPLE SITE LEFT RADIAL; BG TOTAL HEMOGLOBIN 11.5 g/dL (12.0-18.0); BG VENT MODE NASAL CANNULA
[2018-04-13] MEDS: SODIUM CHLORIDE 0.9% INJ 3ML FLUSH IVF SCH ×3 (05:41→21:54)
[2018-04-13] MEDS: LORAZEPAM 2MG/ML CPJ IV SCH ×2 (05:41→10:45)
[2018-04-13] MEDS: ALLOPURINOL 300 MG TABLET PO SCH (05:41)
[2018-04-13] MEDS: NITROGLYCERIN OINT 1GM/INCH UDPKT TD SCH (05:42)
[2018-04-13] MEDS: NITROGLYCERIN 50MG PREMIX 250 ML IV PRN (05:43)
[2018-04-13] MEDS: INSULIN LISPRO 100 UNITS/ML SUBCUT SCH (05:59)
[2018-04-13] MEDS: BLOOD SUGAR DIAGNOSTIC STRIP TEST SCH ×6 (05:59→23:05)
[2018-04-13] MEDS: SEVELAMER CARBONATE 800 MG TABLET PO SCH (06:16)
[2018-04-13 07:26] LABS: BASOPHILS % 0.3 % (0.0-2.0); EOSINOPHILS % 0.1 % (0.0-5.0); HEMATOCRIT. 33.4 % (36.0-48.0); HEMOGLOBIN. 11.2 g/dL (12.0-16.0); LYMPHOCYTES % 10.9 % (20.0-50.0); MEAN CORPUSCULAR HEMOGLOBIN 30.2 pg (28.0-32.0); MEAN CORPUSCULAR VOLUME 89.9 fL (81.0-99.0); MEAN PLATELET VOLUME 8.8 fl (7.4-10.4); MONOCYTES % 3.6 % (2.0-8.0); NEUTROPHILS % 85.1 % (40.0-76.0); PLATELET 326 x1000/uL (130-400); RED BLOOD CELL COUNT 3.71 mill/uL (4.2-5.4); RED CELL DISTRIBUTION WIDTH 18.2 % (11.6-14.6)
[2018-04-13 07:43] LABS: CHLORIDE 93 mEq/L (98-107)
[2018-04-13] MEDS ORDERED: METHYLENE BLUE 50 MG/10 ML AMP IV ONE (08:04)
[2018-04-13] MEDS ORDERED: GELATIN SPONGE,ABSORBABLE 12-7MM SPONGE ONE ×2 (08:04→14:48)
[2018-04-13] MEDS ORDERED: THROMBIN (BOVINE) 5000 UNITS/VIAL TOP ONE ×3 (08:05→14:47)
[2018-04-13] MEDS ORDERED: HEPARIN 5000 UNITS/ML VIAL ONE (08:05)
[2018-04-13] MEDS ORDERED: BACITRACIN 50,000 UNITS/VIAL ONE (08:06)
[2018-04-13] MEDS: PANTOPRAZOLE SODIUM 40 MG/VIAL IV SCH (08:19)
[2018-04-13] MEDS: CARVEDILOL 12.5MG TABLET PO SCH (08:19)
[2018-04-13] MEDS ORDERED: HEPARIN 1000 UNITS/ML 10ML ONE ×2 (08:37→09:48)
[2018-04-13] MEDS ORDERED: MIDAZOLAM HCL 5 MG/ML VIAL ONE (08:47)
[2018-04-13] MEDS ORDERED: FENTANYL CITRATE/PF 50MCG/ML 5ML VIAL ONE (08:47)
[2018-04-13] MEDS ORDERED: SUCCINYLCHOLINE CHLORIDE 200MG/10ML IV ONE (08:48)
[2018-04-13] MEDS ORDERED: NEOSTIGMINE METHYLSULFATE 1MG/ML 10 ML VIAL ONE (08:49)
[2018-04-13] MEDS ORDERED: ROCURONIUM BROMIDE 10MG/ML VIAL 5ML IV ONE ×4 (08:49→15:10)
[2018-04-13] MEDS ORDERED: EPHEDRINE SULFATE 50MG/ML VIAL ONE (08:49)
[2018-04-13] MEDS ORDERED: METOCLOPRAMIDE HCL 10MG/2ML VIAL ONE (08:49)
[2018-04-13] MEDS ORDERED: ONDANSETRON HCL 4MG/2ML INJ ONE (08:49)
[2018-04-13] MEDS: DOCUSATE SODIUM 100MG CAPSULE PO SCH ×2 (09:00→17:00)
[2018-04-13] MEDS ORDERED: CHLORHEXIDINE GLUCONATE 4% EXTERNAL USE TOP SCH (09:00)
[2018-04-13] MEDS ORDERED: NOREPINEPHRINE 4 MG in DEXT 5% WATER 246 ML IV SCH (09:00)
[2018-04-13] MEDS ORDERED: EPINEPHRINE 4 MG in DEXT 5% WATER 246 ML IV SCH (09:00)
[2018-04-13] MEDS ORDERED: NICARDIPINE 40MG/200ML PREMIX 200 ML IV SCH (09:00)
[2018-04-13] MEDS ORDERED: DEL NIDO ELECTROLYTE-S(PH 7.4) 1,000 ML IV SCH ×2 (09:00)
[2018-04-13] MEDS ORDERED: AMINOCAPROIC ACID 10,000 MG in SODIUM CHLORIDE 0.9% 460 ML IV SCH (09:00)
[2018-04-13] MEDS ORDERED: DOBUTAMINE HCL 250 MG in DEXT 5% WATER 230 ML IV SCH (09:00)
[2018-04-13] MEDS: ASPIRIN 81MG TABLET PO SCH (09:00)
[2018-04-13] MEDS ORDERED: CEFAZOLIN 2,000 MG in DEXT 5% WATER 100 ML IV SCH (09:00)
[2018-04-13] MEDS: LACTOBACILLUS GG CAPSULE PO SCH (09:00)
[2018-04-13] MEDS: FUROSEMIDE 40MG TABLET PO SCH (09:00)
[2018-04-13] MEDS: THEOPHYLLINE ANHYDROUS 80 MG/15 ML 120ML PO SCH (09:00)
[2018-04-13] MEDS ORDERED: PAPAVERINE HCL 180MG in SODIUM CHLORIDE 0.9% 24ML IV SCH (09:00)
[2018-04-13 09:06] LABS: INR 1.1; PARTIAL THROMBOPLASTIN TIME 62.7 sec (23.4-31.0); PROTHROMBIN TIME 10.9 sec (9.1-11.1)
[2018-04-13] MEDS ORDERED: AMIODARONE HCL 50MG/ML 3ML VIAL IV ONE (09:47)
[2018-04-13] MEDS ORDERED: ALBUMIN HUMAN 25GM/100ML (25%) IV ONE (09:47)
[2018-04-13] MEDS ORDERED: PHENYLEPHRINE HCL 10 MG/ML 1ML (IV VIAL) IV ONE (09:47)
[2018-04-13] MEDS ORDERED: CALCIUM CHLORIDE 1GM/10ML SYR IV ONE ×2 (09:47→14:00)
[2018-04-13] MEDS ORDERED: AMINOCAPROIC ACID 250 MG/ML 20ML VIAL ONE (09:47)
[2018-04-13] MEDS ORDERED: MANNITOL 20% 500 ML IV ONE (09:48)
[2018-04-13] MEDS ORDERED: HEPARIN 10,000 UNITS/ML VIAL ONE (09:48)
[2018-04-13] MEDS ORDERED: SODIUM BICARBONATE 8.4% 1 MEQ/ML 50ML SYR IV ONE (09:48)
[2018-04-13] MEDS ORDERED: ETOMIDATE 2MG/ML 10ML VIAL IV ONE (09:51)
[2018-04-13] MEDS ORDERED: MIDAZOLAM HCL 5 MG/5 ML VIAL ONE (11:04)
[2018-04-13] MEDS ORDERED: METHYLPREDNISOLONE SOD SUCC 1000 MG/8 ML IV ONE (11:58)
[2018-04-13] MEDS ORDERED: MORPHINE SULFATE 10 MG/ML CPJ ONE (12:05)
[2018-04-13] MEDS ORDERED: DEXTROSE 50% WATER 50ML SYRINGE IV ONE (12:38)
[2018-04-13] MEDS ORDERED: BACITRACIN 15GM TUBE TOP ONE (13:32)
[2018-04-13] MEDS ORDERED: PROTAMINE SULFATE 10MG/ML VIAL 25ML IV ONE (14:00)
[2018-04-13] MEDS ORDERED: LIDOCAINE HCL 2% 5ML SYRINGE IV ONE (14:00)
[2018-04-13] MEDS ORDERED: PROPOFOL 10MG/ML 100ML 100 ML IV ONE (15:10)
[2018-04-13] MEDS ORDERED: LIDOCAINE HCL/PF 1% 2ML VIAL ONE (15:14)
[2018-04-13] MEDS ORDERED: CEFAZOLIN SODIUM 1000MG/VIAL ONE (15:22)
[2018-04-13] MEDS ORDERED: SODIUM CHLORIDE 0.9% 500 ML IV PRN (16:05)
[2018-04-13] MEDS ORDERED: NOREPINEPHRINE 4 MG in DEXT 5% WATER 250 ML IV SCH (16:05)
[2018-04-13 16:07] LABS: HEMATOCRIT. 22.3 % (36.0-48.0); HEMOGLOBIN. 7.5 g/dL (12.0-16.0); MEAN CORPUSCULAR HEMOGLOBIN 30.3 pg (28.0-32.0); PLATELET 263 x1000/uL (130-400); RED BLOOD CELL COUNT 2.48 mill/uL (4.2-5.4); RED CELL DISTRIBUTION WIDTH 18.2 % (11.6-14.6)
[2018-04-13 16:13] LABS: CHLORIDE 98 mEq/L (98-107)
[2018-04-13] MEDS ORDERED: OXYCODONE HCL/ACETAMINOPHEN 5/325MG TABLET PO PRN (16:15)
[2018-04-13] MEDS ORDERED: ONDANSETRON HCL 4MG/2ML INJ IV PRN (16:15)
[2018-04-13] MEDS ORDERED: ALBUMIN HUMAN 12.5G/250ML (5%) IV PRN (16:15)
[2018-04-13] MEDS ORDERED: ACETAMINOPHEN 650MG SUPP PR PRN (16:15)
[2018-04-13] MEDS ORDERED: MORPHINE SULFATE 4 MG/ML CPJ (NOT FOR IM USE) IV PRN (16:15)
[2018-04-13 16:16] LABS: INR 1.2; PARTIAL THROMBOPLASTIN TIME 24.8 sec (23.4-31.0); PROTHROMBIN TIME 12.3 sec (9.1-11.1)
[2018-04-13 16:53] LABS: PLATELET ESTIMATE NORMAL
[2018-04-13] MEDS: BACITRACIN 15GM TUBE TOP SCH (17:00)
[2018-04-13 17:17] LABS: BG BASE EXCESS -2.6 mmol/L (-2.0-2.0); BG CARBOXYHEMOGLOBIN 1.1 % (0.5-1.5); BG DEOXYHEMOGLOBIN 24.9 % (0.0-5.0); BG FRACTION INSPIRED OXYGEN 70; BG METHEMOGLOBIN 0.6 % (0.0-1.5); BG OXYGEN SATURATION 74.7 % (92.0-98.5); BG OXYHEMOGLOBIN 73.4 % (94.0-97.0); BG PCO2 60.9 mmHg (35.0-45.0); BG PH 7.232 (7.350-7.450); BG PO2 45.7 mmHg (75.0-100.0); BG SAMPLE SITE A-LINE; BG TIDAL VOLUME(mL) 500 mL; BG TOTAL HEMOGLOBIN 7.6 g/dL (12.0-18.0); BG VENT MODE VENT - A/C; BG VENT RATE 12 set
[2018-04-13] MEDS: DEXT 5%/0.45% NACL 1000ML 1,000 ML IV SCH (18:13)
[2018-04-13 18:22] LABS: MEAN CORPUSCULAR HEMOGLOBIN 31.4 pg (28.0-32.0); MEAN CORPUSCULAR VOLUME 90.6 fL (81.0-99.0); MEAN PLATELET VOLUME 8.3 fl (7.4-10.4); PLATELET 262 x1000/uL (130-400); RED BLOOD CELL COUNT 2.13 mill/uL (4.2-5.4)
[2018-04-13 18:27] LABS: INR 1.2; PARTIAL THROMBOPLASTIN TIME 24.2 sec (23.4-31.0); PROTHROMBIN TIME 11.9 sec (9.1-11.1)
[2018-04-13] MEDS ORDERED: CEFAZOLIN 1000MG PREMIX 50 ML IV NR (18:30)
[2018-04-13 18:32] LABS: HEMATOCRIT. 19.3 % (36.0-48.0); HEMOGLOBIN. 6.7 g/dL (12.0-16.0)
[2018-04-13 18:48] LABS: BG BASE EXCESS -1.7 mmol/L (-2.0-2.0); BG DEOXYHEMOGLOBIN 2.6 % (0.0-5.0); BG FRACTION INSPIRED OXYGEN 50; BG HCO3 ACT 25.3 mmol/L (22.0-26.0); BG METHEMOGLOBIN 0.4 % (0.0-1.5); BG OXYGEN SATURATION 97.4 % (92.0-98.5); BG PCO2 55.3 mmHg (35.0-45.0); BG PH 7.278 (7.350-7.450); BG PO2 121.5 mmHg (75.0-100.0); BG SAMPLE SITE A-LINE; BG TIDAL VOLUME(mL) 550 mL; BG TOTAL HEMOGLOBIN 8.1 g/dL (12.0-18.0); BG VENT MODE VENT - A/C; BG VENT RATE 14 set
[2018-04-13 18:53] LABS: PLATELET ESTIMATE NORMAL
[2018-04-13 19:38] LABS: BG BASE EXCESS -2.2 mmol/L (-2.0-2.0); BG DEOXYHEMOGLOBIN 3.8 % (0.0-5.0); BG FRACTION INSPIRED OXYGEN 40; BG HCO3 ACT 24.6 mmol/L (22.0-26.0); BG METHEMOGLOBIN 0.3 % (0.0-1.5); BG OXYGEN SATURATION 96.1 % (92.0-98.5); BG OXYHEMOGLOBIN 94.9 % (94.0-97.0); BG PCO2 54.1 mmHg (35.0-45.0); BG PH 7.276 (7.350-7.450); BG PO2 101.5 mmHg (75.0-100.0); BG SAMPLE SITE A-LINE; BG TIDAL VOLUME(mL) 550 mL; BG TOTAL HEMOGLOBIN 7.5 g/dL (12.0-18.0); BG VENT MODE VENT - A/C; BG VENT RATE 14 set
[2018-04-13] MEDS ORDERED: DEXTROSE 50% WATER 50ML SYRINGE IV PRN ×2 (19:45)
[2018-04-13] MEDS: MORPHINE SULFATE 4 MG/ML CPJ (NOT FOR IM USE) IV PRN (20:20)
[2018-04-13 20:22] LABS: PHOSPHORUS 4.2 mg/dL (2.5-4.9)
[2018-04-13] MEDS: IPRATROPIUM/ALBUTEROL 0.5-3(2.5)MG/3ML NEB HHN SCH (20:45)
[2018-04-13] MEDS: INSULIN REGULAR (DRIP) 100 UNITS in SODIUM CHLORIDE 0.9% 100 ML IV SCH (22:17)
[2018-04-14] VITALS (102 sets, daily range): BP systolic 116–180; BP diastolic 57–124
[2018-04-14] MEDS: BLOOD SUGAR DIAGNOSTIC STRIP TEST SCH ×24 (00:10→23:40)
[2018-04-14] MEDS: ACETYLCYSTEINE 100MG/ML 10% VIAL 4ML INH SCH ×2 (00:20→15:29)
[2018-04-14] MEDS: IPRATROPIUM/ALBUTEROL 0.5-3(2.5)MG/3ML NEB HHN SCH ×6 (00:20→20:46)
[2018-04-14 00:56] LABS: HEMATOCRIT. 26.8 % (36.0-48.0); HEMOGLOBIN. 9.1 g/dL (12.0-16.0); MEAN CORPUSCULAR HEMOGLOBIN 30.7 pg (28.0-32.0); MEAN CORPUSCULAR VOLUME 90.1 fL (81.0-99.0); MEAN PLATELET VOLUME 8.5 fl (7.4-10.4); PLATELET 255 x1000/uL (130-400); RED BLOOD CELL COUNT 2.97 mill/uL (4.2-5.4); RED CELL DISTRIBUTION WIDTH 16.2 % (11.6-14.6)
[2018-04-14 01:04] LABS: CHLORIDE 100 mEq/L (98-107)
[2018-04-14 01:06] LABS: INR 1.1; PARTIAL THROMBOPLASTIN TIME 23.3 sec (23.4-31.0); PROTHROMBIN TIME 11.4 sec (9.1-11.1)
[2018-04-14 01:09] LABS: PHOSPHORUS 5.7 mg/dL (2.5-4.9)
[2018-04-14] MEDS: MORPHINE SULFATE 4 MG/ML CPJ (NOT FOR IM USE) IV PRN ×6 (01:17→20:49)
[2018-04-14] MEDS: EPOETIN ALFA 4000UNITS/ML VIAL SUBCUT SCH (01:38)
[2018-04-14 04:53] LABS: HEMOGLOBIN. 9.1 g/dL (12.0-16.0); MEAN CORPUSCULAR HEMOGLOBIN 30.7 pg (28.0-32.0); MEAN CORPUSCULAR VOLUME 91.2 fL (81.0-99.0); PLATELET 273 x1000/uL (130-400); RED BLOOD CELL COUNT 2.96 mill/uL (4.2-5.4); RED CELL DISTRIBUTION WIDTH 16.5 % (11.6-14.6)
[2018-04-14 04:58] LABS: BG BASE EXCESS -4.2 mmol/L (-2.0-2.0); BG CARBOXYHEMOGLOBIN 0.5 % (0.5-1.5); BG DEOXYHEMOGLOBIN 4.1 % (0.0-5.0); BG FRACTION INSPIRED OXYGEN 40; BG HCO3 ACT 21.4 mmol/L (22.0-26.0); BG METHEMOGLOBIN 0.2 % (0.0-1.5); BG OXYGEN SATURATION 95.9 % (92.0-98.5); BG OXYHEMOGLOBIN 95.2 % (94.0-97.0); BG PH 7.335 (7.350-7.450); BG PO2 89.4 mmHg (75.0-100.0); BG SAMPLE SITE LEFT RADIAL; BG TIDAL VOLUME(mL) 550 mL; BG TOTAL HEMOGLOBIN 9.3 g/dL (12.0-18.0); BG VENT MODE VENT - A/C; BG VENT RATE 14 set
[2018-04-14 05:06] LABS: PHOSPHORUS 5.9 mg/dL (2.5-4.9)
[2018-04-14 05:21] LABS: INR 1.1; PARTIAL THROMBOPLASTIN TIME 23.3 sec (23.4-31.0); PROTHROMBIN TIME 11.4 sec (9.1-11.1)
[2018-04-14] MEDS ORDERED: SODIUM BICARBONATE 8.4% 1 MEQ/ML 50ML SYR IV PRN (05:45)
[2018-04-14] MEDS: SODIUM CHLORIDE 0.9% INJ 3ML FLUSH IVF SCH ×4 (06:27→23:41)
[2018-04-14 07:15] LABS: NUCLEATED RED BLOOD CELLS 1 /100 WBC; PLATELET ESTIMATE NORMAL
[2018-04-14 07:25] LABS: NUCLEATED RED BLOOD CELLS 1 /100 WBC; PLATELET ESTIMATE NORMAL
[2018-04-14 07:47] LABS: BG BASE EXCESS -1.8 mmol/L (-2.0-2.0); BG CARBOXYHEMOGLOBIN 0.4 % (0.5-1.5); BG FRACTION INSPIRED OXYGEN 40; BG HCO3 ACT 24.4 mmol/L (22.0-26.0); BG METHEMOGLOBIN 0.2 % (0.0-1.5); BG OXYHEMOGLOBIN 95.4 % (94.0-97.0); BG PCO2 48.4 mmHg (35.0-45.0); BG PH 7.321 (7.350-7.450); BG PO2 90.7 mmHg (75.0-100.0); BG PRESSURE SUPPORT 12; BG SAMPLE SITE LEFT RADIAL; BG TIDAL VOLUME(mL) 550 mL; BG TOTAL HEMOGLOBIN 9.8 g/dL (12.0-18.0); BG VENT MODE VENT - SIMV; BG VENT RATE 12 set
[2018-04-14] MEDS: BACITRACIN 15GM TUBE TOP SCH ×2 (08:38→17:07)
[2018-04-14] MEDS ORDERED: CEFAZOLIN 1000MG/50ML PREMIX IV ONE (08:59)
[2018-04-14 09:38] LABS: BG CARBOXYHEMOGLOBIN 0.5 % (0.5-1.5); BG DEOXYHEMOGLOBIN 3.8 % (0.0-5.0); BG FRACTION INSPIRED OXYGEN 40; BG HCO3 ACT 25.8 mmol/L (22.0-26.0); BG METHEMOGLOBIN 0.2 % (0.0-1.5); BG OXYGEN SATURATION 96.2 % (92.0-98.5); BG OXYHEMOGLOBIN 95.5 % (94.0-97.0); BG PH 7.357 (7.350-7.450); BG PO2 90.9 mmHg (75.0-100.0); BG PRESSURE SUPPORT 8; BG SAMPLE SITE LEFT RADIAL; BG TOTAL HEMOGLOBIN 10.6 g/dL (12.0-18.0); BG VENT MODE VENT - CPAP
[2018-04-14] MEDS: IPRATROPIUM/ALBUTEROL 0.5-3(2.5)MG/3ML NEB INH SCH ×2 (11:37→15:29)
[2018-04-14] MEDS: DOCUSATE SODIUM 100MG CAPSULE PO SCH ×2 (12:09→17:06)
[2018-04-14] MEDS: DEXT 5%/0.45% NACL 1000ML 1,000 ML IV SCH (12:10)
[2018-04-14] MEDS: FAMOTIDINE 20MG/2ML VIAL IV SCH (12:10)
[2018-04-14 12:31] LABS: BG CARBOXYHEMOGLOBIN 0.6 % (0.5-1.5); BG FRACTION INSPIRED OXYGEN 40; BG METHEMOGLOBIN 0.2 % (0.0-1.5); BG OXYHEMOGLOBIN 97.2 % (94.0-97.0); BG PCO2 51.4 mmHg (35.0-45.0); BG PO2 118.8 mmHg (75.0-100.0); BG SAMPLE SITE LEFT RADIAL; BG TOTAL HEMOGLOBIN 10.9 g/dL (12.0-18.0); BG VENT MODE MASK - AEROSOL
[2018-04-14] MEDS: METHYLPREDNISOLONE SOD SUCC 40 MG/ML VIAL IV SCH (13:04)
[2018-04-14] MEDS: CARVEDILOL 3.125 MG TABLET PO SCH ×2 (13:09→20:48)
[2018-04-14 14:08] LABS: HEMATOCRIT. 28.5 % (36.0-48.0); HEMOGLOBIN. 9.7 g/dL (12.0-16.0); MEAN CORPUSCULAR HEMOGLOBIN 30.9 pg (28.0-32.0); MEAN CORPUSCULAR VOLUME 91.1 fL (81.0-99.0); MEAN PLATELET VOLUME 9.2 fl (7.4-10.4); PLATELET 289 x1000/uL (130-400); RED BLOOD CELL COUNT 3.13 mill/uL (4.2-5.4); RED CELL DISTRIBUTION WIDTH 15.9 % (11.6-14.6)
[2018-04-14 14:21] LABS: PHOSPHORUS 3.9 mg/dL (2.5-4.9)
[2018-04-14] MEDS ORDERED: HYDRALAZINE 20MG/ML VIAL IV PRN (14:30)
[2018-04-14 14:31] LABS: PLATELET ESTIMATE NORMAL
[2018-04-14] MEDS: SEVELAMER CARBONATE 800 MG TABLET PO SCH (17:32)
[2018-04-14] MEDS: GABAPENTIN 300MG CAPSULE PO SCH (20:48)
[2018-04-14] MEDS: THEOPHYLLINE ANHYDROUS 80 MG/15 ML 120ML PO SCH (20:48)
[2018-04-15] VITALS (58 sets, daily range): BP systolic 124–175; BP diastolic 35–103
[2018-04-15] MEDS: MORPHINE SULFATE 4 MG/ML CPJ (NOT FOR IM USE) IV PRN ×4 (00:42→20:54)
[2018-04-15] MEDS: BLOOD SUGAR DIAGNOSTIC STRIP TEST SCH ×21 (01:00→22:19)
[2018-04-15] MEDS: IPRATROPIUM/ALBUTEROL 0.5-3(2.5)MG/3ML NEB HHN SCH ×6 (02:25→20:05)
[2018-04-15] MEDS: ACETYLCYSTEINE 100MG/ML 10% VIAL 4ML INH SCH ×2 (02:26→13:45)
[2018-04-15 05:48] LABS: HEMATOCRIT. 28.6 % (36.0-48.0); HEMOGLOBIN. 9.6 g/dL (12.0-16.0); LYMPHOCYTES % 7.7 % (20.0-50.0); MEAN CORPUSCULAR HEMOGLOBIN 30.8 pg (28.0-32.0); MEAN CORPUSCULAR VOLUME 92.3 fL (81.0-99.0); MEAN PLATELET VOLUME 9.3 fl (7.4-10.4); NEUTROPHILS % 79.3 % (40.0-76.0); PLATELET 314 x1000/uL (130-400); RED CELL DISTRIBUTION WIDTH 16.3 % (11.6-14.6)
[2018-04-15 05:59] LABS: PHOSPHORUS 5.1 mg/dL (2.5-4.9)
[2018-04-15 08:41] LABS: BG BASE EXCESS -1.6 mmol/L (-2.0-2.0); BG CARBOXYHEMOGLOBIN 0.3 % (0.5-1.5); BG DEOXYHEMOGLOBIN 2.6 % (0.0-5.0); BG FRACTION INSPIRED OXYGEN 38; BG HCO3 ACT 24.3 mmol/L (22.0-26.0); BG METHEMOGLOBIN 0.3 % (0.0-1.5); BG OXYGEN SATURATION 97.4 % (92.0-98.5); BG OXYHEMOGLOBIN 96.8 % (94.0-97.0); BG PCO2 46.2 mmHg (35.0-45.0); BG PH 7.338 (7.350-7.450); BG PO2 109.2 mmHg (75.0-100.0); BG SAMPLE SITE LEFT RADIAL; BG TOTAL HEMOGLOBIN 9.3 g/dL (12.0-18.0); BG VENT MODE NASAL CANNULA
[2018-04-15] MEDS: SEVELAMER CARBONATE 800 MG TABLET PO SCH ×3 (09:06→17:57)
[2018-04-15] MEDS: FOLIC ACID/VITAMIN B COMP W-C TABLET PO SCH (09:06)
[2018-04-15] MEDS: DOCUSATE SODIUM 100MG CAPSULE PO SCH ×2 (09:06→17:09)
[2018-04-15] MEDS: CARVEDILOL 3.125 MG TABLET PO SCH ×2 (09:07→20:17)
[2018-04-15] MEDS: ASPIRIN 81MG TABLET PO SCH (09:07)
[2018-04-15] MEDS: THEOPHYLLINE ANHYDROUS 80 MG/15 ML 120ML PO SCH (09:07)
[2018-04-15] MEDS: FAMOTIDINE 20MG/2ML VIAL IV SCH (09:07)
[2018-04-15] MEDS: LACTOBACILLUS GG CAPSULE PO SCH (09:07)
[2018-04-15] MEDS: METHYLPREDNISOLONE SOD SUCC 40 MG/ML VIAL IV SCH (09:09)
[2018-04-15] MEDS: DEXT 5%/0.45% NACL 1000ML 1,000 ML IV SCH (09:10)
[2018-04-15] MEDS: OXYCODONE HCL/ACETAMINOPHEN 5/325MG TABLET PO PRN ×2 (10:22→17:10)
[2018-04-15] MEDS: FUROSEMIDE 40MG TABLET PO SCH (10:22)
[2018-04-15] MEDS: SODIUM CHLORIDE 0.9% INJ 3ML FLUSH IVF SCH ×2 (13:54→19:34)
[2018-04-15] MEDS ORDERED: DEXT 5%/0.45% NACL 1000ML 1,000 ML IV SCH (15:01)
[2018-04-15] MEDS: INSULIN REGULAR (DRIP) 100 UNITS in SODIUM CHLORIDE 0.9% 100 ML IV SCH (17:56)
[2018-04-15] MEDS: EPOETIN ALFA 4000UNITS/ML VIAL SUBCUT SCH (20:17)
[2018-04-15] MEDS: GABAPENTIN 300MG CAPSULE PO SCH (20:17)
[2018-04-15] MEDS: BACITRACIN 15GM TUBE TOP SCH (20:18)
[2018-04-15] MEDS: DIPHENHYDRAMINE 50MG/ML VIAL IV PRN (23:49)
[2018-04-16] VITALS (53 sets, daily range): BP systolic 131–180; BP diastolic 54–101
[2018-04-16] MEDS: IPRATROPIUM/ALBUTEROL 0.5-3(2.5)MG/3ML NEB HHN SCH ×7 (00:10→23:15)
[2018-04-16] MEDS: ACETYLCYSTEINE 100MG/ML 10% VIAL 4ML INH SCH ×3 (00:10→15:51)
[2018-04-16] MEDS: BLOOD SUGAR DIAGNOSTIC STRIP TEST SCH ×23 (00:20→23:00)
[2018-04-16] MEDS: SODIUM CHLORIDE 0.9% INJ 3ML FLUSH IVF SCH ×3 (04:06→21:36)
[2018-04-16 05:49] LABS: PHOSPHORUS 5.4 mg/dL (2.5-4.9)
[2018-04-16 05:53] LABS: BASOPHILS % 0.2 % (0.0-2.0); EOSINOPHILS % 0.1 % (0.0-5.0); HEMATOCRIT. 25.4 % (36.0-48.0); HEMOGLOBIN. 8.4 g/dL (12.0-16.0); LYMPHOCYTES % 11.6 % (20.0-50.0); MEAN CORPUSCULAR HEMOGLOBIN 30.8 pg (28.0-32.0); MEAN CORPUSCULAR VOLUME 93.1 fL (81.0-99.0); MEAN PLATELET VOLUME 9.2 fl (7.4-10.4); MONOCYTES % 11.1 % (2.0-8.0); PLATELET 357 x1000/uL (130-400); RED BLOOD CELL COUNT 2.72 mill/uL (4.2-5.4)
[2018-04-16] MEDS: MORPHINE SULFATE 4 MG/ML CPJ (NOT FOR IM USE) IV PRN (06:40)
[2018-04-16] MEDS ORDERED: LIDOCAINE HCL 1% 20ML VIAL (Pyxis) INJ ONE (08:13)
[2018-04-16] MEDS: CARVEDILOL 3.125 MG TABLET PO SCH ×2 (09:00→21:36)
[2018-04-16] MEDS: FOLIC ACID/VITAMIN B COMP W-C TABLET PO SCH (09:45)
[2018-04-16] MEDS: ASPIRIN 81MG TABLET PO SCH (09:45)
[2018-04-16] MEDS: FAMOTIDINE 20MG/2ML VIAL IV SCH (09:45)
[2018-04-16] MEDS: DOCUSATE SODIUM 100MG CAPSULE PO SCH ×2 (09:45→17:43)
[2018-04-16] MEDS: FUROSEMIDE 40MG TABLET PO SCH (09:45)
[2018-04-16] MEDS: LACTOBACILLUS GG CAPSULE PO SCH (09:45)
[2018-04-16] MEDS: METHYLPREDNISOLONE SOD SUCC 40 MG/ML VIAL IV SCH (09:46)
[2018-04-16] MEDS: SEVELAMER CARBONATE 800 MG TABLET PO SCH ×3 (09:49→18:20)
[2018-04-16] MEDS: BACITRACIN 15GM TUBE TOP SCH (09:50)
[2018-04-16] MEDS: OXYCODONE HCL/ACETAMINOPHEN 5/325MG TABLET PO PRN ×2 (09:56→22:32)
[2018-04-16] MEDS ORDERED: IPRATROPIUM/ALBUTEROL 0.5-3(2.5)MG/3ML NEB HHN PRN (17:15)
[2018-04-16] MEDS: ALPRAZOLAM 0.25 MG TABLET PO PRN (17:44)
[2018-04-16] MEDS: INSULIN REGULAR (DRIP) 100 UNITS in SODIUM CHLORIDE 0.9% 100 ML IV SCH (17:58)
[2018-04-16] MEDS: GABAPENTIN 300MG CAPSULE PO SCH (21:36)
[2018-04-17] VITALS (41 sets, daily range): BP systolic 101–171; BP diastolic 56–99
[2018-04-17] MEDS: ACETYLCYSTEINE 100MG/ML 10% VIAL 4ML INH SCH (00:31)
[2018-04-17] MEDS: BLOOD SUGAR DIAGNOSTIC STRIP TEST SCH ×18 (01:00→21:00)
[2018-04-17] MEDS: BACITRACIN 15GM TUBE TOP SCH ×3 (04:18→21:45)
[2018-04-17] MEDS: IPRATROPIUM/ALBUTEROL 0.5-3(2.5)MG/3ML NEB HHN SCH ×5 (04:19→21:24)
[2018-04-17] MEDS: OXYCODONE HCL/ACETAMINOPHEN 5/325MG TABLET PO PRN (05:38)
[2018-04-17 05:51] LABS: HEMATOCRIT. 24.3 % (36.0-48.0); HEMOGLOBIN. 7.9 g/dL (12.0-16.0); MEAN CORPUSCULAR HEMOGLOBIN 31.2 pg (28.0-32.0); MEAN CORPUSCULAR VOLUME 95.5 fL (81.0-99.0); MEAN PLATELET VOLUME 9.1 fl (7.4-10.4); PLATELET 277 x1000/uL (130-400); RED BLOOD CELL COUNT 2.54 mill/uL (4.2-5.4); RED CELL DISTRIBUTION WIDTH 15.7 % (11.6-14.6)
[2018-04-17] MEDS ORDERED: ACETYLCYSTEINE 100MG/ML 10% VIAL 4ML INH SCH (06:00)
[2018-04-17] MEDS: SODIUM CHLORIDE 0.9% INJ 3ML FLUSH IVF SCH ×3 (06:00→21:45)
[2018-04-17] MEDS: MORPHINE SULFATE 4 MG/ML CPJ (NOT FOR IM USE) IV PRN ×2 (07:27→23:18)
[2018-04-17 08:07] LABS: NUCLEATED RED BLOOD CELLS 21 /100 WBC; PLATELET ESTIMATE NORMAL
[2018-04-17] MEDS: DOCUSATE SODIUM 100MG CAPSULE PO SCH ×2 (08:55→17:00)
[2018-04-17] MEDS: CARVEDILOL 3.125 MG TABLET PO SCH ×3 (08:55→21:00)
[2018-04-17] MEDS: FAMOTIDINE 20MG/2ML VIAL IV SCH (08:55)
[2018-04-17] MEDS: LACTOBACILLUS GG CAPSULE PO SCH (08:55)
[2018-04-17] MEDS: FOLIC ACID/VITAMIN B COMP W-C TABLET PO SCH (08:55)
[2018-04-17] MEDS: FUROSEMIDE 40MG TABLET PO SCH (08:55)
[2018-04-17] MEDS: ASPIRIN 81MG TABLET PO SCH (08:55)
[2018-04-17] MEDS: SEVELAMER CARBONATE 800 MG TABLET PO SCH ×2 (08:56→13:09)
[2018-04-17] MEDS: METHYLPREDNISOLONE SOD SUCC 40 MG/ML VIAL IV SCH (10:17)
[2018-04-17] MEDS ORDERED: LORAZEPAM 2MG/ML CPJ IV NR (10:30)
[2018-04-17] MEDS ORDERED: INSULIN GLARGINE UD 100 UNITS/ML SYR SUBCUT SCH (11:30)
[2018-04-17] MEDS ORDERED: DEXTROSE 50% WATER 50ML SYRINGE IV PRN (15:30)
[2018-04-17] MEDS: INSULIN LISPRO 100 UNITS/ML SUBCUT SCH ×2 (17:53→20:59)
[2018-04-17] MEDS: GABAPENTIN 300MG CAPSULE PO SCH ×2 (20:59→21:00)
[2018-04-17] MEDS: DIPHENHYDRAMINE 50MG/ML VIAL IV PRN (23:18)
[2018-04-18] VITALS (19 sets, daily range): BP systolic 91–171; BP diastolic 42–86
[2018-04-18] MEDS: CARVEDILOL 3.125 MG TABLET PO SCH ×3 (00:25→21:40)
[2018-04-18] MEDS ORDERED: AMIODARONE HCL 150 MG in DEXT 5% WATER 100 ML IV SCH (01:00)
[2018-04-18] MEDS ORDERED: AMIODARONE HCL 900 MG in DEXT 5% WATER 482 ML IV SCH (01:00)
[2018-04-18] MEDS: IPRATROPIUM/ALBUTEROL 0.5-3(2.5)MG/3ML NEB HHN SCH ×7 (01:30→23:55)
[2018-04-18] MEDS: SODIUM CHLORIDE 0.9% INJ 3ML FLUSH IVF SCH ×3 (05:55→21:42)
[2018-04-18] MEDS: BLOOD SUGAR DIAGNOSTIC STRIP TEST SCH ×4 (05:55→20:49)
[2018-04-18 06:14] LABS: HEMATOCRIT. 22.5 % (36.0-48.0); HEMOGLOBIN. 7.4 g/dL (12.0-16.0); MEAN CORPUSCULAR HEMOGLOBIN 30.7 pg (28.0-32.0); MEAN CORPUSCULAR VOLUME 93.7 fL (81.0-99.0); MEAN PLATELET VOLUME 8.3 fl (7.4-10.4); PLATELET 407 x1000/uL (130-400); RED CELL DISTRIBUTION WIDTH 15.8 % (11.6-14.6)
[2018-04-18] MEDS: SEVELAMER CARBONATE 800 MG TABLET PO SCH ×3 (07:36→17:20)
[2018-04-18] MEDS: INSULIN LISPRO 100 UNITS/ML SUBCUT SCH ×4 (07:37→21:42)
[2018-04-18] MEDS: BACITRACIN 15GM TUBE TOP SCH ×2 (09:00→22:36)
[2018-04-18 09:15] LABS: NUCLEATED RED BLOOD CELLS 11 /100 WBC; PLATELET ESTIMATE INCREASED
[2018-04-18] MEDS: FAMOTIDINE 20MG/2ML VIAL IV SCH (11:28)
[2018-04-18] MEDS: FOLIC ACID/VITAMIN B COMP W-C TABLET PO SCH (11:29)
[2018-04-18] MEDS: LACTOBACILLUS GG CAPSULE PO SCH (11:29)
[2018-04-18] MEDS: ASPIRIN 81MG TABLET PO SCH (11:29)
[2018-04-18] MEDS: DOCUSATE SODIUM 100MG CAPSULE PO SCH ×2 (11:29→17:20)
[2018-04-18] MEDS: FUROSEMIDE 40MG TABLET PO SCH (11:30)
[2018-04-18] MEDS: METHYLPREDNISOLONE SOD SUCC 40 MG/ML VIAL IV SCH (11:30)
[2018-04-18 12:30] LABS: TOTAL IRON BINDING CAPACITY 201 ug/dL (250-450)
[2018-04-18] MEDS: OXYCODONE HCL/ACETAMINOPHEN 5/325MG TABLET PO PRN (12:55)
[2018-04-18] MEDS ORDERED: INSULIN REGULAR (HUMULIN R) 300UNITS/3ML SUBCUT NR (20:00)
[2018-04-18] MEDS ORDERED: EPOETIN ALFA 10000UNITS/ML VIAL SUBCUT SCH (21:00)
[2018-04-18] MEDS: GABAPENTIN 300MG CAPSULE PO SCH (21:40)
[2018-04-18] MEDS ORDERED: TRAMADOL 50MG TABLET PO PRN (22:30)
[2018-04-18] MEDS: HYDROCODONE/ACETAMINOPHEN 5/325MG TABLET PO PRN (22:36)
[2018-04-18] MEDS: DIPHENHYDRAMINE 50MG/ML VIAL IV PRN (23:55)
[2018-04-19] VITALS (9 sets, daily range): BP systolic 116–153; BP diastolic 54–93
[2018-04-19] MEDS: HYDROCODONE/ACETAMINOPHEN 5/325MG TABLET PO PRN ×2 (03:26→09:14)
[2018-04-19] MEDS: IPRATROPIUM/ALBUTEROL 0.5-3(2.5)MG/3ML NEB HHN SCH (04:00)
[2018-04-19] MEDS: SODIUM CHLORIDE 0.9% INJ 3ML FLUSH IVF SCH ×2 (06:00→13:20)
[2018-04-19 06:29] LABS: HEMATOCRIT. 25.5 % (36.0-48.0); HEMOGLOBIN. 8.7 g/dL (12.0-16.0); MEAN CORPUSCULAR HEMOGLOBIN 30.5 pg (28.0-32.0); MEAN CORPUSCULAR VOLUME 89.5 fL (81.0-99.0); MEAN PLATELET VOLUME 8.2 fl (7.4-10.4); PLATELET 383 x1000/uL (130-400); RED BLOOD CELL COUNT 2.85 mill/uL (4.2-5.4); RED CELL DISTRIBUTION WIDTH 18.2 % (11.6-14.6)
[2018-04-19] MEDS: BLOOD SUGAR DIAGNOSTIC STRIP TEST SCH ×2 (06:45→12:11)
[2018-04-19] MEDS ORDERED: AMIODARONE HCL 200 MG TABLET PO SCH (09:00)
[2018-04-19] MEDS: LACTOBACILLUS GG CAPSULE PO SCH (09:10)
[2018-04-19] MEDS: FOLIC ACID/VITAMIN B COMP W-C TABLET PO SCH (09:11)
[2018-04-19] MEDS: SEVELAMER CARBONATE 800 MG TABLET PO SCH ×2 (09:11→13:19)
[2018-04-19] MEDS: FUROSEMIDE 40MG TABLET PO SCH (09:11)
[2018-04-19] MEDS: METHYLPREDNISOLONE SOD SUCC 40 MG/ML VIAL IV SCH (09:11)
[2018-04-19] MEDS: DOCUSATE SODIUM 100MG CAPSULE PO SCH (09:11)
[2018-04-19] MEDS: FAMOTIDINE 20MG/2ML VIAL IV SCH (09:12)
[2018-04-19] MEDS: ASPIRIN 81MG TABLET PO SCH (09:12)
[2018-04-19] MEDS: CARVEDILOL 3.125 MG TABLET PO SCH (09:12)
[2018-04-19] MEDS: INSULIN LISPRO 100 UNITS/ML SUBCUT SCH ×2 (09:15→13:20)
[2018-04-19] MEDS: ALPRAZOLAM 0.25 MG TABLET PO PRN (09:55)
[2018-04-19 10:43] LABS: NUCLEATED RED BLOOD CELLS 7 /100 WBC; PLATELET ESTIMATE NORMAL
[2018-04-19] MEDS: BACITRACIN 15GM TUBE TOP SCH (13:19)
== END 2018-04-19 16:00 | DRG 233 ==
LOC: ER 07:18 → 8WST 10:07 → ENRESERV 17:41 → 3WST 04-07 10:34 → MICUSO 04-11 13:32 → CVICU 04-13 09:10 → 3WST 04-17 17:52
PROVIDERS: ADMIT Family Medicine Adult Medicine; ATTEND Family Medicine Adult Medicine
PROC: 5A1D70Z Performance of Urinary Filtration, Intermittent, Less than 6 Hours Per Day (ICD-10-PCS; 2018-04-04)
PROC: 5A1D70Z Performance of Urinary Filtration, Intermittent, Less than 6 Hours Per Day (ICD-10-PCS; 2018-04-06)
PROC: 4A023N7 Measurement of Cardiac Sampling and Pressure, Left Heart, Percutaneous Approach (ICD-10-PCS; principal; 2018-04-07)
PROC: B2111ZZ Fluoroscopy of Multiple Coronary Arteries using Low Osmolar Contrast (ICD-10-PCS; 2018-04-07)
PROC: B2151ZZ Fluoroscopy of Left Heart using Low Osmolar Contrast (ICD-10-PCS; 2018-04-07)
PROC: B41F1ZZ Fluoroscopy of Right Lower Extremity Arteries using Low Osmolar Contrast (ICD-10-PCS; 2018-04-07)
PROC: 5A1D70Z Performance of Urinary Filtration, Intermittent, Less than 6 Hours Per Day (ICD-10-PCS; 2018-04-11)
PROC: 30233N1 Transfusion of Nonautologous Red Blood Cells into Peripheral Vein, Percutaneous Approach (ICD-10-PCS; 2018-04-12)
PROC: 5A1D70Z Performance of Urinary Filtration, Intermittent, Less than 6 Hours Per Day (ICD-10-PCS; 2018-04-12)
PROC: 02100Z9 Bypass Coronary Artery, One Artery from Left Internal Mammary, Open Approach (ICD-10-PCS; 2018-04-13)
PROC: 021109W Bypass Coronary Artery, Two Arteries from Aorta with Autologous Venous Tissue, Open Approach (ICD-10-PCS; 2018-04-13)
PROC: 06BQ0ZZ Excision of Left Saphenous Vein, Open Approach (ICD-10-PCS; 2018-04-13)
PROC: 5A1221Z Performance of Cardiac Output, Continuous (ICD-10-PCS; 2018-04-13)
PROC: B246ZZ4 Ultrasonography of Right and Left Heart, Transesophageal (ICD-10-PCS; 2018-04-13)
PROC: 30233K1 Transfusion of Nonautologous Frozen Plasma into Peripheral Vein, Percutaneous Approach (ICD-10-PCS; 2018-04-13)
PROC: 30233R1 Transfusion of Nonautologous Platelets into Peripheral Vein, Percutaneous Approach (ICD-10-PCS; 2018-04-13)
PROC: 5A1D70Z Performance of Urinary Filtration, Intermittent, Less than 6 Hours Per Day (ICD-10-PCS; 2018-04-14)
PROC: 05HY33Z Insertion of Infusion Device into Upper Vein, Percutaneous Approach (ICD-10-PCS; 2018-04-16)
PROC: B54MZZA Ultrasonography of Right Upper Extremity Veins, Guidance (ICD-10-PCS; 2018-04-16)
PROC: 5A1D70Z Performance of Urinary Filtration, Intermittent, Less than 6 Hours Per Day (ICD-10-PCS; 2018-04-17)
PROC: 5A1D70Z Performance of Urinary Filtration, Intermittent, Less than 6 Hours Per Day (ICD-10-PCS; 2018-04-19)
DX: I21.4 Non-ST elevation (NSTEMI) myocardial infarction (principal); N18.6 End stage renal disease; J96.21 Acute and chronic respiratory failure with hypoxia; I13.2 Hypertensive heart and chronic kidney disease with heart failure and with stage 5 chronic kidney disease, or end stage renal disease; E87.1 Hypo-osmolality and hyponatremia; E87.2 Acidosis; I48.92 Unspecified atrial flutter; J98.11 Atelectasis; N25.81 Secondary hyperparathyroidism of renal origin; J44.9 Chronic obstructive pulmonary disease, unspecified; E11.22 Type 2 diabetes mellitus with diabetic chronic kidney disease; E11.40 Type 2 diabetes mellitus with diabetic neuropathy, unspecified; E11.65 Type 2 diabetes mellitus with hyperglycemia; I50.9 Heart failure, unspecified; D63.8 Anemia in other chronic diseases classified elsewhere; D72.829 Elevated white blood cell count, unspecified; E66.01 Morbid (severe) obesity due to excess calories; E78.5 Hyperlipidemia, unspecified; E83.52 Hypercalcemia; E87.5 Hyperkalemia; I25.110 Atherosclerotic heart disease of native coronary artery with unstable angina pectoris; I49.3 Ventricular premature depolarization; R26.9 Unspecified abnormalities of gait and mobility; M19.90 Unspecified osteoarthritis, unspecified site; M48.02 Spinal stenosis, cervical region; Z96.641 Presence of right artificial hip joint; M50.30 Other cervical disc degeneration, unspecified cervical region; F17.210 Nicotine dependence, cigarettes, uncomplicated; M24.9 Joint derangement, unspecified; T38.0X5A Adverse effect of glucocorticoids and synthetic analogues, initial encounter; Y92.89 Other specified places as the place of occurrence of the external cause; Z78.1 Physical restraint status; Z83.3 Family history of diabetes mellitus; Z87.01 Personal history of pneumonia (recurrent); Z99.2 Dependence on renal dialysis; I25.2 Old myocardial infarction; Z99.81 Dependence on supplemental oxygen; Z90.710 Acquired absence of both cervix and uterus; Z88.5 Allergy status to narcotic agent; Z79.899 Other long term (current) drug therapy; Z79.82 Long term (current) use of aspirin; Z88.8 Allergy status to other drugs, medicaments and biological substances; Z68.30 Body mass index [BMI] 30.0-30.9, adult; Z79.4 Long term (current) use of insulin
CPT/HCPCS: 36415; 36569; 36600; 70551; 71045; 72141; 74018; 76937; 78452; 80048; 82375; 82728; 82805; 82962; 83036; 83540; 83550; 83735; 84100; 84439; 84443; 84484; 85347; 85520; 86850; 86900; 86920; 86927; 87070; 87077; 87186; 92610; 93005; 93306; 93458; 93880; 93970; 94002; 94003; 94640; 96372; 96374; 97110; 97116; 97163; 97166; 97168; 97530; 97535; 99285; A6261; A9500; C1725; C1729; C1751; C1758; C1760; C1769; C1887; C1893; C9113; J0282; J0330; J0690; J0885; J1200; J1250; J1644; J1815; J2060; J2250; J2270; J2370; J2405; J2440; J2704; J2710; J2720; J2765; J2785; J2920; J2930; J3010; J3490; J7040; J7050; J7060; J7608; J7620; L3908; P9016; P9017; P9034; P9047; Q9967; Q9968

== ENCOUNTER 2018-04-19 16:00 | Inpatient (IN) | payer MEDICARE, MEDICAID ==
[~2018-04-19] VITALS: Ht 193 cm; Wt 80.3 kg
[2018-04-19] MEDS ORDERED: ONDANSETRON 4MG ODT PO PRN (18:15)
[2018-04-19] MEDS ORDERED: ACETAMINOPHEN 650MG/20.3ML UDC PO PRN ×2 (18:15→22:30)
[2018-04-19] MEDS ORDERED: BENZONATATE 100MG CAPSULE PO PRN (18:15)
[2018-04-19] MEDS ORDERED: TRAMADOL 50MG TABLET PO PRN (18:15)
[2018-04-19] MEDS ORDERED: ALPRAZOLAM 0.25 MG TABLET PO PRN (18:15)
[2018-04-19] MEDS ORDERED: CLONIDINE 0.1MG TABLET PO PRN (18:15)
[2018-04-19] MEDS ORDERED: NITROGLYCERIN 0.4MG TABLET SL SL PRN (18:15)
[2018-04-19] MEDS ORDERED: DEXTROSE 50% WATER 50ML SYRINGE IV PRN (18:30)
[2018-04-19 19:40] VITALS: BP 137/67
[2018-04-19 20:00] VITALS: BP 136/95
[2018-04-19] MEDS: CARVEDILOL 3.125 MG TABLET PO SCH (20:36)
[2018-04-19] MEDS: GABAPENTIN 300MG CAPSULE PO SCH (20:36)
[2018-04-19] MEDS: HYDROCODONE/ACETAMINOPHEN 5/325MG TABLET PO PRN (20:37)
[2018-04-19] MEDS: SEVELAMER CARBONATE 800 MG TABLET PO SCH (20:41)
[2018-04-19] MEDS: BLOOD SUGAR DIAGNOSTIC STRIP TEST SCH (21:02)
[2018-04-19] MEDS: IPRATROPIUM/ALBUTEROL 0.5-3(2.5)MG/3ML NEB HHN SCH (21:30)
[2018-04-19] MEDS: INSULIN LISPRO 100 UNITS/ML SUBCUT SCH (21:36)
[2018-04-19] MEDS: BACITRACIN 15GM TUBE TOP SCH (22:16)
[2018-04-19] MEDS: MORPHINE SULFATE 4 MG/ML CPJ (NOT FOR IM USE) IV PRN (22:42)
[2018-04-20] MEDS: IPRATROPIUM/ALBUTEROL 0.5-3(2.5)MG/3ML NEB HHN SCH ×4 (04:12→17:00)
[2018-04-20] MEDS: BLOOD SUGAR DIAGNOSTIC STRIP TEST SCH ×4 (06:15→21:56)
[2018-04-20] MEDS: INSULIN LISPRO 100 UNITS/ML SUBCUT SCH ×4 (06:45→22:02)
[2018-04-20 06:56] LABS: HEMATOCRIT. 26.7 % (36.0-48.0); HEMOGLOBIN. 8.8 g/dL (12.0-16.0); MEAN CORPUSCULAR HEMOGLOBIN 29.6 pg (28.0-32.0); MEAN CORPUSCULAR VOLUME 90.2 fL (81.0-99.0); MEAN PLATELET VOLUME 8.2 fl (7.4-10.4); PLATELET 431 x1000/uL (130-400); RED BLOOD CELL COUNT 2.96 mill/uL (4.2-5.4); RED CELL DISTRIBUTION WIDTH 17.7 % (11.6-14.6)
[2018-04-20 07:34] LABS: CHLORIDE 98 mEq/L (98-107)
[2018-04-20 08:00] VITALS: BP 117/66
[2018-04-20] MEDS: SEVELAMER CARBONATE 800 MG TABLET PO SCH ×3 (08:41→16:04)
[2018-04-20] MEDS: FAMOTIDINE 20MG TABLET PO SCH (08:41)
[2018-04-20] MEDS: FUROSEMIDE 40MG TABLET PO SCH (08:41)
[2018-04-20] MEDS: AMIODARONE HCL 200 MG TABLET PO SCH (08:41)
[2018-04-20] MEDS: FOLIC ACID/VITAMIN B COMP W-C TABLET PO SCH (08:41)
[2018-04-20] MEDS: DOCUSATE SODIUM 100MG CAPSULE PO SCH ×2 (08:41→16:04)
[2018-04-20] MEDS: LACTOBACILLUS GG CAPSULE PO SCH (08:41)
[2018-04-20] MEDS: PREDNISONE 20MG TABLET PO SCH (08:42)
[2018-04-20] MEDS: HYDROCODONE/ACETAMINOPHEN 5/325MG TABLET PO PRN ×2 (08:42→15:01)
[2018-04-20] MEDS: CARVEDILOL 3.125 MG TABLET PO SCH ×2 (08:45→21:07)
[2018-04-20] MEDS: ASPIRIN 81MG TABLET PO SCH (08:45)
[2018-04-20] MEDS: BACITRACIN 15GM TUBE TOP SCH ×2 (08:46→21:07)
[2018-04-20] MEDS ORDERED: SEVELAMER CARBONATE 800 MG TABLET PO SCH (09:00)
[2018-04-20] MEDS: MORPHINE SULFATE 4 MG/ML CPJ (NOT FOR IM USE) IV PRN ×2 (10:15→21:14)
[2018-04-20 14:09] LABS: NUCLEATED RED BLOOD CELLS 2 /100 WBC
[2018-04-20 14:10] LABS: PLATELET ESTIMATE SLIGHTLY INCREASED
[2018-04-20] MEDS: DIPHENHYDRAMINE 25MG CAPSULE PO PRN (15:29)
[2018-04-20 20:00] VITALS: BP 135/56
[2018-04-20] MEDS: GABAPENTIN 300MG CAPSULE PO SCH (21:07)
[2018-04-20] MEDS: EPOETIN ALFA 10000UNITS/ML VIAL SUBCUT SCH (21:57)
[2018-04-21] MEDS: IPRATROPIUM/ALBUTEROL 0.5-3(2.5)MG/3ML NEB HHN SCH ×7 (00:03→20:54)
[2018-04-21] MEDS: MORPHINE SULFATE 4 MG/ML CPJ (NOT FOR IM USE) IV PRN ×3 (05:26→18:48)
[2018-04-21] MEDS: BLOOD SUGAR DIAGNOSTIC STRIP TEST SCH ×4 (05:31→20:50)
[2018-04-21] MEDS: INSULIN LISPRO 100 UNITS/ML SUBCUT SCH ×4 (06:33→22:09)
[2018-04-21 07:00] LABS: HEMATOCRIT. 26.4 % (36.0-48.0); HEMOGLOBIN. 8.9 g/dL (12.0-16.0); MEAN CORPUSCULAR HEMOGLOBIN 30.3 pg (28.0-32.0); MEAN CORPUSCULAR VOLUME 90.4 fL (81.0-99.0); MEAN PLATELET VOLUME 7.9 fl (7.4-10.4); PLATELET 383 x1000/uL (130-400); RED BLOOD CELL COUNT 2.92 mill/uL (4.2-5.4); RED CELL DISTRIBUTION WIDTH 17.8 % (11.6-14.6)
[2018-04-21 07:16] LABS: CHLORIDE 99 mEq/L (98-107)
[2018-04-21 07:28] LABS: PHOSPHORUS 2.6 mg/dL (2.5-4.9); TOTAL IRON BINDING CAPACITY 238 ug/dL (250-450)
[2018-04-21 07:36] LABS: FOLIC ACID (FOLATE) SERUM >20 ng/mL ng/mL (>5.38)
[2018-04-21 08:00] VITALS: BP 113/53
[2018-04-21 08:16] LABS: VITAMIN B12 SERUM 1026 pg/mL (211-911)
[2018-04-21] MEDS: FAMOTIDINE 20MG TABLET PO SCH (08:50)
[2018-04-21] MEDS: DOCUSATE SODIUM 100MG CAPSULE PO SCH ×2 (08:50→17:00)
[2018-04-21] MEDS: BACITRACIN 15GM TUBE TOP SCH ×2 (08:50→20:20)
[2018-04-21] MEDS: SEVELAMER CARBONATE 800 MG TABLET PO SCH ×3 (08:50→17:00)
[2018-04-21] MEDS: AMIODARONE HCL 200 MG TABLET PO SCH (08:50)
[2018-04-21] MEDS: PREDNISONE 20MG TABLET PO SCH (08:50)
[2018-04-21] MEDS: FOLIC ACID/VITAMIN B COMP W-C TABLET PO SCH (08:50)
[2018-04-21] MEDS: LACTOBACILLUS GG CAPSULE PO SCH (08:52)
[2018-04-21] MEDS: CARVEDILOL 3.125 MG TABLET PO SCH ×2 (08:52→20:46)
[2018-04-21] MEDS: FUROSEMIDE 40MG TABLET PO SCH (08:52)
[2018-04-21] MEDS: ASPIRIN 81MG TABLET PO SCH (08:53)
[2018-04-21 10:44] LABS: BG BASE EXCESS 2.4 mmol/L (-2.0-2.0); BG CARBOXYHEMOGLOBIN 0.4 % (0.5-1.5); BG DEOXYHEMOGLOBIN 3.1 % (0.0-5.0); BG FRACTION INSPIRED OXYGEN 28; BG HCO3 ACT 28.2 mmol/L (22.0-26.0); BG METHEMOGLOBIN 0.3 % (0.0-1.5); BG OXYGEN SATURATION 96.9 % (92.0-98.5); BG OXYHEMOGLOBIN 96.2 % (94.0-97.0); BG PCO2 49.8 mmHg (35.0-45.0); BG PH 7.371 (7.350-7.450); BG PO2 98.8 mmHg (75.0-100.0); BG SAMPLE SITE LEFT RADIAL; BG TOTAL HEMOGLOBIN 9.2 g/dL (12.0-18.0); BG VENT MODE NASAL CANNULA
[2018-04-21 11:36] LABS: CLARITY URINE CLOUDY (CLEAR); COLOR URINE YELLOW (YELLOW); KETONES URINE TRACE (NEGATIVE); LEUKOCYTE ESTERASE URINE 2+ (NEGATIVE); NITRITE URINE NEGATIVE (NEGATIVE); OCCULT BLOOD URINE 1+ (NEGATIVE); PROTEIN URINE 2+ (NEGATIVE); SPECIFIC GRAVITY URINE 1.021 (1.005-1.030); UROBILINOGEN URINE 0.2 E.U./dL (0.2-1.0)
[2018-04-21] MEDS ORDERED: BISACODYL 10MG SUPP PR NR (12:00)
[2018-04-21] MEDS: LACTULOSE 20G/30ML UDC PO SCH ×3 (12:10→17:00)
[2018-04-21 13:40] LABS: NUCLEATED RED BLOOD CELLS 2 /100 WBC; PLATELET ESTIMATE NORMAL
[2018-04-21] MEDS ORDERED: LIDOCAINE HCL/PF 1% 2ML VIAL ONE (13:59)
[2018-04-21] MEDS: DIPHENHYDRAMINE 25MG CAPSULE PO PRN ×2 (17:00→20:55)
[2018-04-21] MEDS ORDERED: DOCUSATE SODIUM 100MG CAPSULE PO SCH (17:00)
[2018-04-21] MEDS ORDERED: INSULIN LISPRO 100 UNITS/ML SUBCUT ONE (19:00)
[2018-04-21] MEDS ORDERED: INSULIN REGULAR (HUMULIN R) 300UNITS/3ML SUBCUT NR (19:00)
[2018-04-21] MEDS ORDERED: INSULIN LISPRO 100 UNITS/ML SUBCUT NR (19:15)
[2018-04-21 20:00] VITALS: BP 129/69
[2018-04-21] MEDS: HYDROCORTISONE 1% CREAM 30GM TOP PRN (20:20)
[2018-04-21] MEDS: GABAPENTIN 300MG CAPSULE PO SCH (20:47)
[2018-04-21] MEDS: POLYETHYLENE GLYCOL 3350 (17GM) 1 DOSE PACK PO SCH (20:50)
[2018-04-22] MEDS: MORPHINE SULFATE 4 MG/ML CPJ (NOT FOR IM USE) IV PRN ×4 (01:08→19:26)
[2018-04-22] MEDS: IPRATROPIUM/ALBUTEROL 0.5-3(2.5)MG/3ML NEB HHN SCH ×5 (04:00→16:11)
[2018-04-22] MEDS: BLOOD SUGAR DIAGNOSTIC STRIP TEST SCH ×4 (05:58→21:21)
[2018-04-22] MEDS: HYDROCORTISONE 1% CREAM 30GM TOP PRN ×2 (06:04→21:21)
[2018-04-22] MEDS: INSULIN LISPRO 100 UNITS/ML SUBCUT SCH ×4 (06:05→23:06)
[2018-04-22 06:58] LABS: BASOPHILS % 0.2 % (0.0-2.0); EOSINOPHILS % 0.3 % (0.0-5.0); HEMATOCRIT. 24.9 % (36.0-48.0); HEMOGLOBIN. 8.2 g/dL (12.0-16.0); LYMPHOCYTES % 17.4 % (20.0-50.0); MEAN CORPUSCULAR HEMOGLOBIN 30.4 pg (28.0-32.0); MEAN CORPUSCULAR VOLUME 92.2 fL (81.0-99.0); MEAN PLATELET VOLUME 8.1 fl (7.4-10.4); MONOCYTES % 13.5 % (2.0-8.0); NEUTROPHILS % 68.6 % (40.0-76.0); PLATELET 376 x1000/uL (130-400); RED CELL DISTRIBUTION WIDTH 17.3 % (11.6-14.6)
[2018-04-22 08:47] VITALS: BP 118/74
[2018-04-22] MEDS: FUROSEMIDE 40MG TABLET PO SCH (10:04)
[2018-04-22] MEDS: SEVELAMER CARBONATE 800 MG TABLET PO SCH ×3 (10:05→18:13)
[2018-04-22] MEDS: PREDNISONE 20MG TABLET PO SCH (10:05)
[2018-04-22] MEDS: BACITRACIN 15GM TUBE TOP SCH ×2 (10:06→21:21)
[2018-04-22] MEDS: FAMOTIDINE 20MG TABLET PO SCH (10:06)
[2018-04-22] MEDS: FOLIC ACID/VITAMIN B COMP W-C TABLET PO SCH (10:07)
[2018-04-22] MEDS: CARVEDILOL 3.125 MG TABLET PO SCH ×2 (10:07→21:00)
[2018-04-22] MEDS: LACTOBACILLUS GG CAPSULE PO SCH (10:08)
[2018-04-22] MEDS: ASPIRIN 81MG TABLET PO SCH (10:08)
[2018-04-22] MEDS: DOCUSATE SODIUM 100MG CAPSULE PO SCH ×2 (10:09→18:13)
[2018-04-22] MEDS: AMIODARONE HCL 200 MG TABLET PO SCH (10:10)
[2018-04-22] MEDS: INSULIN GLARGINE UD 100 UNITS/ML SYR SUBCUT SCH (10:49)
[2018-04-22] MEDS: DIPHENHYDRAMINE 25MG CAPSULE PO PRN ×2 (13:19→21:21)
[2018-04-22 20:00] VITALS: BP 137/56
[2018-04-22] MEDS: GABAPENTIN 300MG CAPSULE PO SCH (21:20)
[2018-04-22] MEDS: POLYETHYLENE GLYCOL 3350 (17GM) 1 DOSE PACK PO SCH (21:20)
[2018-04-22] MEDS: EPOETIN ALFA 10000UNITS/ML VIAL SUBCUT SCH (21:22)
[2018-04-23] MEDS: IPRATROPIUM/ALBUTEROL 0.5-3(2.5)MG/3ML NEB HHN SCH ×5 (00:11→15:44)
[2018-04-23] MEDS: BLOOD SUGAR DIAGNOSTIC STRIP TEST SCH ×4 (06:07→21:10)
[2018-04-23] MEDS: INSULIN LISPRO 100 UNITS/ML SUBCUT SCH ×6 (06:07→20:37)
[2018-04-23] MEDS: MORPHINE SULFATE 4 MG/ML CPJ (NOT FOR IM USE) IV PRN ×3 (06:45→19:24)
[2018-04-23 06:54] LABS: BASOPHILS % 0.1 % (0.0-2.0); EOSINOPHILS % 0.2 % (0.0-5.0); HEMATOCRIT. 25.7 % (36.0-48.0); HEMOGLOBIN. 8.4 g/dL (12.0-16.0); LYMPHOCYTES % 13.5 % (20.0-50.0); MEAN CORPUSCULAR HEMOGLOBIN 30.4 pg (28.0-32.0); MEAN CORPUSCULAR VOLUME 92.9 fL (81.0-99.0); MEAN PLATELET VOLUME 7.7 fl (7.4-10.4); MONOCYTES % 10.6 % (2.0-8.0); NEUTROPHILS % 75.6 % (40.0-76.0); PLATELET 369 x1000/uL (130-400); RED BLOOD CELL COUNT 2.77 mill/uL (4.2-5.4); RED CELL DISTRIBUTION WIDTH 17.5 % (11.6-14.6)
[2018-04-23 07:06] LABS: CHLORIDE 108 mEq/L (98-107)
[2018-04-23 07:30] VITALS: BP 128/57
[2018-04-23] MEDS: ASPIRIN 81MG TABLET PO SCH (08:35)
[2018-04-23] MEDS: SEVELAMER CARBONATE 800 MG TABLET PO SCH ×3 (08:35→17:09)
[2018-04-23] MEDS: LACTOBACILLUS GG CAPSULE PO SCH (08:35)
[2018-04-23] MEDS: FUROSEMIDE 40MG TABLET PO SCH (08:36)
[2018-04-23] MEDS: AMIODARONE HCL 200 MG TABLET PO SCH (08:36)
[2018-04-23] MEDS: DOCUSATE SODIUM 100MG CAPSULE PO SCH ×2 (08:36→17:09)
[2018-04-23] MEDS: FOLIC ACID/VITAMIN B COMP W-C TABLET PO SCH (08:36)
[2018-04-23] MEDS: PREDNISONE 20MG TABLET PO SCH (08:36)
[2018-04-23] MEDS: FAMOTIDINE 20MG TABLET PO SCH (08:36)
[2018-04-23] MEDS: CARVEDILOL 3.125 MG TABLET PO SCH ×2 (08:36→20:38)
[2018-04-23] MEDS: BACITRACIN 15GM TUBE TOP SCH ×2 (08:37→20:38)
[2018-04-23] MEDS: INSULIN GLARGINE UD 100 UNITS/ML SYR SUBCUT SCH (09:06)
[2018-04-23 20:00] VITALS: BP 113/54
[2018-04-23] MEDS: GABAPENTIN 300MG CAPSULE PO SCH (20:37)
[2018-04-23] MEDS: POLYETHYLENE GLYCOL 3350 (17GM) 1 DOSE PACK PO SCH (20:41)
[2018-04-23] MEDS: HYDROCORTISONE 1% CREAM 30GM TOP PRN (21:11)
[2018-04-23] MEDS: IPRATROPIUM/ALBUTEROL 0.5-3(2.5)MG/3ML NEB HHN PRN (23:50)
[2018-04-24] MEDS: IPRATROPIUM/ALBUTEROL 0.5-3(2.5)MG/3ML NEB HHN SCH ×5 (00:04→22:10)
[2018-04-24] MEDS: MORPHINE SULFATE 4 MG/ML CPJ (NOT FOR IM USE) IV PRN ×4 (01:20→22:22)
[2018-04-24] MEDS: IPRATROPIUM/ALBUTEROL 0.5-3(2.5)MG/3ML NEB HHN PRN ×2 (04:00→17:38)
[2018-04-24] MEDS: BLOOD SUGAR DIAGNOSTIC STRIP TEST SCH ×4 (05:49→21:13)
[2018-04-24] MEDS: INSULIN LISPRO 100 UNITS/ML SUBCUT SCH ×4 (06:07→22:02)
[2018-04-24 07:50] LABS: BASOPHILS % 0.2 % (0.0-2.0); EOSINOPHILS % 0.2 % (0.0-5.0); HEMATOCRIT. 24.7 % (36.0-48.0); LYMPHOCYTES % 16.4 % (20.0-50.0); MEAN CORPUSCULAR HEMOGLOBIN 30.3 pg (28.0-32.0); MEAN CORPUSCULAR VOLUME 94.2 fL (81.0-99.0); MEAN PLATELET VOLUME 7.9 fl (7.4-10.4); MONOCYTES % 9.7 % (2.0-8.0); NEUTROPHILS % 73.5 % (40.0-76.0); PLATELET 338 x1000/uL (130-400); RED BLOOD CELL COUNT 2.62 mill/uL (4.2-5.4); RED CELL DISTRIBUTION WIDTH 17.7 % (11.6-14.6)
[2018-04-24 08:00] VITALS: BP 145/61
[2018-04-24] MEDS: FUROSEMIDE 40MG TABLET PO SCH (08:31)
[2018-04-24] MEDS: DOCUSATE SODIUM 100MG CAPSULE PO SCH ×2 (08:31→17:25)
[2018-04-24] MEDS: AMIODARONE HCL 200 MG TABLET PO SCH (08:31)
[2018-04-24] MEDS: SEVELAMER CARBONATE 800 MG TABLET PO SCH ×3 (08:31→17:25)
[2018-04-24] MEDS: ASPIRIN 81MG TABLET PO SCH (08:31)
[2018-04-24] MEDS: FOLIC ACID/VITAMIN B COMP W-C TABLET PO SCH (08:31)
[2018-04-24] MEDS: PREDNISONE 10MG TABLET PO SCH (08:31)
[2018-04-24] MEDS: LACTOBACILLUS GG CAPSULE PO SCH (08:31)
[2018-04-24] MEDS: FAMOTIDINE 20MG TABLET PO SCH (08:32)
[2018-04-24] MEDS: CARVEDILOL 3.125 MG TABLET PO SCH ×2 (08:32→22:04)
[2018-04-24] MEDS: BACITRACIN 15GM TUBE TOP SCH ×2 (08:37→22:05)
[2018-04-24] MEDS ORDERED: PREDNISONE 10MG TABLET PO SCH (09:00)
[2018-04-24] MEDS ORDERED: PREDNISONE 5MG TABLET PO SCH (09:00)
[2018-04-24] MEDS: FLUCONAZOLE 100MG TABLET PO SCH (11:10)
[2018-04-24] MEDS: INSULIN GLARGINE UD 100 UNITS/ML SYR SUBCUT SCH (11:31)
[2018-04-24 20:00] VITALS: BP 120/63
[2018-04-24] MEDS: POLYETHYLENE GLYCOL 3350 (17GM) 1 DOSE PACK PO SCH (20:24)
[2018-04-24] MEDS: LACTULOSE 20G/30ML UDC PO PRN (22:03)
[2018-04-24] MEDS: GABAPENTIN 300MG CAPSULE PO SCH (22:04)
[2018-04-25] MEDS ORDERED: MORPHINE SULFATE 4 MG/ML CPJ (NOT FOR IM USE) IV PRN (01:00)
[2018-04-25] MEDS: HYDROCORTISONE 1% CREAM 30GM TOP PRN (02:09)
[2018-04-25] MEDS: BLOOD SUGAR DIAGNOSTIC STRIP TEST SCH ×4 (06:12→21:37)
[2018-04-25] MEDS: INSULIN LISPRO 100 UNITS/ML SUBCUT SCH ×5 (06:17→21:36)
[2018-04-25 07:08] LABS: HEMATOCRIT. 26.1 % (36.0-48.0); HEMOGLOBIN. 8.4 g/dL (12.0-16.0); MEAN CORPUSCULAR HEMOGLOBIN 30.2 pg (28.0-32.0); MEAN CORPUSCULAR VOLUME 93.9 fL (81.0-99.0); PLATELET 362 x1000/uL (130-400); RED BLOOD CELL COUNT 2.78 mill/uL (4.2-5.4); RED CELL DISTRIBUTION WIDTH 18.6 % (11.6-14.6)
[2018-04-25 07:17] LABS: CHLORIDE 102 mEq/L (98-107)
[2018-04-25 07:26] LABS: CREATINE KINASE 41 IU/L (26-192)
[2018-04-25] MEDS: IPRATROPIUM/ALBUTEROL 0.5-3(2.5)MG/3ML NEB HHN SCH ×4 (07:36→20:21)
[2018-04-25 08:00] VITALS: BP 132/59
[2018-04-25] MEDS ORDERED: TRAMADOL 50MG TABLET PO PRN (08:15)
[2018-04-25] MEDS: BACITRACIN 15GM TUBE TOP SCH ×2 (09:00→21:00)
[2018-04-25] MEDS: FLUCONAZOLE 100MG TABLET PO SCH (09:42)
[2018-04-25] MEDS: FUROSEMIDE 40MG TABLET PO SCH (09:42)
[2018-04-25] MEDS: CARVEDILOL 3.125 MG TABLET PO SCH ×2 (09:42→21:00)
[2018-04-25] MEDS: FAMOTIDINE 20MG TABLET PO SCH (09:42)
[2018-04-25] MEDS: PREDNISONE 10MG TABLET PO SCH (09:42)
[2018-04-25] MEDS: SEVELAMER CARBONATE 800 MG TABLET PO SCH ×3 (09:42→16:32)
[2018-04-25] MEDS: AMIODARONE HCL 200 MG TABLET PO SCH (09:42)
[2018-04-25] MEDS: FOLIC ACID/VITAMIN B COMP W-C TABLET PO SCH (09:42)
[2018-04-25] MEDS: DOCUSATE SODIUM 100MG CAPSULE PO SCH ×2 (09:43→16:32)
[2018-04-25] MEDS: ASPIRIN 81MG TABLET PO SCH (09:43)
[2018-04-25] MEDS: LACTOBACILLUS GG CAPSULE PO SCH (09:43)
[2018-04-25] MEDS: INSULIN GLARGINE UD 100 UNITS/ML SYR SUBCUT SCH (09:51)
[2018-04-25 13:09] LABS: NUCLEATED RED BLOOD CELLS 4 /100 WBC; PLATELET ESTIMATE NORMAL
[2018-04-25] MEDS: MORPHINE SULFATE 4 MG/ML CPJ (NOT FOR IM USE) IV PRN (16:17)
[2018-04-25 20:00] VITALS: BP 132/64
[2018-04-25] MEDS: EPOETIN ALFA 10000UNITS/ML VIAL SUBCUT SCH (21:00)
[2018-04-25] MEDS: POLYETHYLENE GLYCOL 3350 (17GM) 1 DOSE PACK PO SCH (21:00)
[2018-04-25] MEDS: GABAPENTIN 300MG CAPSULE PO SCH (21:37)
[2018-04-26] MEDS: MORPHINE SULFATE 4 MG/ML CPJ (NOT FOR IM USE) IV PRN ×2 (02:15→21:49)
[2018-04-26] MEDS: HYDROCORTISONE 1% CREAM 30GM TOP PRN (02:18)
[2018-04-26] MEDS: IPRATROPIUM/ALBUTEROL 0.5-3(2.5)MG/3ML NEB HHN SCH ×5 (02:23→21:37)
[2018-04-26] MEDS: BLOOD SUGAR DIAGNOSTIC STRIP TEST SCH ×4 (06:30→21:19)
[2018-04-26 06:31] LABS: BASOPHILS % 0.2 % (0.0-2.0); EOSINOPHILS % 0.3 % (0.0-5.0); HEMATOCRIT. 25.1 % (36.0-48.0); HEMOGLOBIN. 8.1 g/dL (12.0-16.0); LYMPHOCYTES % 11.3 % (20.0-50.0); MEAN CORPUSCULAR HEMOGLOBIN 30.4 pg (28.0-32.0); MEAN CORPUSCULAR VOLUME 94.7 fL (81.0-99.0); MEAN PLATELET VOLUME 8.1 fl (7.4-10.4); MONOCYTES % 8.6 % (2.0-8.0); NEUTROPHILS % 79.6 % (40.0-76.0); PLATELET 354 x1000/uL (130-400); RED BLOOD CELL COUNT 2.65 mill/uL (4.2-5.4); RED CELL DISTRIBUTION WIDTH 18.5 % (11.6-14.6)
[2018-04-26] MEDS: INSULIN LISPRO 100 UNITS/ML SUBCUT SCH ×4 (07:58→21:00)
[2018-04-26 08:00] VITALS: BP 110/77
[2018-04-26] MEDS: SEVELAMER CARBONATE 800 MG TABLET PO SCH ×3 (08:57→17:45)
[2018-04-26] MEDS: FUROSEMIDE 40MG TABLET PO SCH (08:57)
[2018-04-26] MEDS: AMIODARONE HCL 200 MG TABLET PO SCH (08:57)
[2018-04-26] MEDS: PREDNISONE 10MG TABLET PO SCH (08:57)
[2018-04-26] MEDS: FOLIC ACID/VITAMIN B COMP W-C TABLET PO SCH (08:57)
[2018-04-26] MEDS: FAMOTIDINE 20MG TABLET PO SCH (08:57)
[2018-04-26] MEDS: DOCUSATE SODIUM 100MG CAPSULE PO SCH ×2 (08:57→17:45)
[2018-04-26] MEDS: LACTOBACILLUS GG CAPSULE PO SCH (08:57)
[2018-04-26] MEDS: FLUCONAZOLE 100MG TABLET PO SCH (08:57)
[2018-04-26] MEDS: ASPIRIN 81MG TABLET PO SCH (08:57)
[2018-04-26] MEDS: CARVEDILOL 3.125 MG TABLET PO SCH ×2 (08:58→21:00)
[2018-04-26] MEDS: BACITRACIN 15GM TUBE TOP SCH ×2 (09:00→21:17)
[2018-04-26] MEDS: INSULIN GLARGINE UD 100 UNITS/ML SYR SUBCUT SCH (10:00)
[2018-04-26] MEDS: HYDROCODONE/ACETAMINOPHEN 5/325MG TABLET PO PRN (12:26)
[2018-04-26] MEDS ORDERED: EPOETIN ALFA 10000UNITS/ML VIAL SUBCUT SCH ×2 (14:00→21:00)
[2018-04-26 15:09] LABS: 25-HYDROXY VITAMIN D3 18 ng/mL (.)
[2018-04-26] MEDS: IPRATROPIUM/ALBUTEROL 0.5-3(2.5)MG/3ML NEB HHN PRN (18:03)
[2018-04-26 20:00] VITALS: BP 110/75
[2018-04-26] MEDS ORDERED: EPOETIN ALFA 4000UNITS/ML VIAL SUBCUT SCH (21:00)
[2018-04-26] MEDS: POLYETHYLENE GLYCOL 3350 (17GM) 1 DOSE PACK PO SCH (21:00)
[2018-04-26] MEDS ORDERED: ERGOCALCIFEROL 50000UNITS CAPSULE PO SCH (21:00)
[2018-04-26] MEDS: GABAPENTIN 300MG CAPSULE PO SCH (21:18)
[2018-04-27] MEDS: IPRATROPIUM/ALBUTEROL 0.5-3(2.5)MG/3ML NEB HHN SCH (07:09)
[2018-04-27 08:43] VITALS: BP 131/59
[2018-04-27] MEDS: PREDNISONE 10MG TABLET PO SCH (09:12)
[2018-04-27] MEDS: FLUCONAZOLE 100MG TABLET PO SCH (09:12)
[2018-04-27] MEDS: SEVELAMER CARBONATE 800 MG TABLET PO SCH ×2 (09:12→12:42)
[2018-04-27] MEDS: FAMOTIDINE 20MG TABLET PO SCH (09:12)
[2018-04-27] MEDS: CARVEDILOL 3.125 MG TABLET PO SCH (09:13)
[2018-04-27] MEDS: FUROSEMIDE 40MG TABLET PO SCH (09:13)
[2018-04-27] MEDS: FOLIC ACID/VITAMIN B COMP W-C TABLET PO SCH (09:13)
[2018-04-27] MEDS: LACTOBACILLUS GG CAPSULE PO SCH (09:13)
[2018-04-27] MEDS: ASPIRIN 81MG TABLET PO SCH (09:13)
[2018-04-27] MEDS: DOCUSATE SODIUM 100MG CAPSULE PO SCH (09:14)
[2018-04-27] MEDS: AMIODARONE HCL 200 MG TABLET PO SCH (09:18)
[2018-04-27] MEDS: LACTULOSE 20G/30ML UDC PO PRN (09:19)
[2018-04-27] MEDS: BACITRACIN 15GM TUBE TOP SCH (09:22)
[2018-04-27 09:49] LABS: BASOPHILS % 0.4 % (0.0-2.0); EOSINOPHILS % 0.5 % (0.0-5.0); HEMATOCRIT. 26.8 % (36.0-48.0); HEMOGLOBIN. 8.7 g/dL (12.0-16.0); LYMPHOCYTES % 7.9 % (20.0-50.0); MEAN CORPUSCULAR HEMOGLOBIN 30.9 pg (28.0-32.0); MEAN CORPUSCULAR VOLUME 95.2 fL (81.0-99.0); MEAN PLATELET VOLUME 8.1 fl (7.4-10.4); NEUTROPHILS % 81.2 % (40.0-76.0); PLATELET 332 x1000/uL (130-400); RED BLOOD CELL COUNT 2.81 mill/uL (4.2-5.4)
[2018-04-27] MEDS: INSULIN GLARGINE UD 100 UNITS/ML SYR SUBCUT SCH (09:57)
[2018-04-27] MEDS: HYDROCODONE/ACETAMINOPHEN 5/325MG TABLET PO PRN (11:03)
[2018-04-27 11:08] VITALS: BP 131/59
[2018-04-27] MEDS: BLOOD SUGAR DIAGNOSTIC STRIP TEST SCH (11:15)
[2018-04-27] MEDS: INSULIN LISPRO 100 UNITS/ML SUBCUT SCH (12:41)
== END 2018-04-27 12:45 | disposition home health service (06) | DRG 280 ==
PROVIDERS: ADMIT Physical Medicine & Rehabilitation Spinal Cord Injury Medicine; ATTEND Family Medicine Adult Medicine
PROC: 5A1D70Z Performance of Urinary Filtration, Intermittent, Less than 6 Hours Per Day (ICD-10-PCS; principal; 2018-04-20)
PROC: 5A1D70Z Performance of Urinary Filtration, Intermittent, Less than 6 Hours Per Day (ICD-10-PCS; 2018-04-22)
PROC: 5A1D70Z Performance of Urinary Filtration, Intermittent, Less than 6 Hours Per Day (ICD-10-PCS; 2018-04-25)
PROC: 5A1D70Z Performance of Urinary Filtration, Intermittent, Less than 6 Hours Per Day (ICD-10-PCS; 2018-04-26)
DX: I21.4 Non-ST elevation (NSTEMI) myocardial infarction (principal); J96.20 Acute and chronic respiratory failure, unspecified whether with hypoxia or hypercapnia; N18.6 End stage renal disease; J98.11 Atelectasis; N39.0 Urinary tract infection, site not specified; I48.92 Unspecified atrial flutter; I12.0 Hypertensive chronic kidney disease with stage 5 chronic kidney disease or end stage renal disease; E87.2 Acidosis; M48.02 Spinal stenosis, cervical region; E11.40 Type 2 diabetes mellitus with diabetic neuropathy, unspecified; R07.9 Chest pain, unspecified; R47.1 Dysarthria and anarthria; R79.89 Other specified abnormal findings of blood chemistry; J44.9 Chronic obstructive pulmonary disease, unspecified; R26.9 Unspecified abnormalities of gait and mobility; D64.9 Anemia, unspecified; R53.1 Weakness; Z96.641 Presence of right artificial hip joint; T38.0X5A Adverse effect of glucocorticoids and synthetic analogues, initial encounter; E11.22 Type 2 diabetes mellitus with diabetic chronic kidney disease; L29.9 Pruritus, unspecified; E11.65 Type 2 diabetes mellitus with hyperglycemia; M46.90 Unspecified inflammatory spondylopathy, site unspecified; I25.110 Atherosclerotic heart disease of native coronary artery with unstable angina pectoris; E66.01 Morbid (severe) obesity due to excess calories; E55.9 Vitamin D deficiency, unspecified; Z95.1 Presence of aortocoronary bypass graft; Z99.2 Dependence on renal dialysis; I25.2 Old myocardial infarction; Z68.21 Body mass index [BMI] 21.0-21.9, adult; Z88.8 Allergy status to other drugs, medicaments and biological substances; Z87.891 Personal history of nicotine dependence
CPT/HCPCS: 36415; 36600; 71045; 80048; 82306; 82375; 82550; 82607; 82746; 82805; 82962; 83540; 83550; 83735; 83970; 84100; 84134; 84145; 84443; 85007; 85027; 92523; 93923; 93970; 94640; 97110; 97116; 97162; 97167; 97530; 97535; C1893; G0515; J0885; J1815; J2270; J3490; J7512; J7620; Q0163

== ENCOUNTER → 2018-07-21 | Outpatient (CLI) | payer MEDICARE, MEDICAID ==
[~2018-07-21] MED LIST changes: -ASPI-1159 PO; +ASPI-1393 PO; -GABA-290 PO; -GEMF600T4 PO; +GEMF600T5 PO; -TRAZ-212 PO; +TRAZ-251 PO
== END | disposition home or self-care (01) ==
LOC: US 10:01
DX: R60.0 Localized edema (principal); M79.605 Pain in left leg; M79.89 Other specified soft tissue disorders
CPT/HCPCS: 93971